=== PATIENT | male | born 1945 | race Caucasian/White ===

== ENCOUNTER 2017-08-21 15:00 | Outpatient (RCR) | payer MEDICARE, SELFPAY ==
--- NOTE | 2017-02-21 13:04 | HP.PTEVAL_ITS ---
Patient's Visit Information JENNIFER CORONA is a 72 year old M referred to Physical Therapy by José Funez with a diagnosis of Gait difficulty. Date of Evaluation: 02/21/17 Physical Therapist: Jaylon Hurtado DPT, OC - Visit Plan Frequency: 2-3x /Week Duration: 2 Months Plan: 2-3x/week for 8 weeks for. 1. HS and gastroc stretches. 2. Bed mobility supine to sit. 3. seated trunk strength. 4. Sit to stand and standing at walker with activity emphasizing position. - Subjective Subjective: 2015 fell off ladder and had craniotomy for SDH. [facility] then May 28 to [facility] through November 16. Having home therapy since October. Lost all muscle movement from the injury, couldn't move arms or legs, Improving. Now weaker on the left side. Prior to injury was getting around well but had a recent parkinson's diagnosis. Had December 13 suregery to repair a whole in his head. Also hisptry of brain cancer in 1991 with radiation. Currently using WC and comfortable chair at home. Has walked with therapy with a walker with wh 15 feet. Can stand and do leg exercises with counter or deck. Has cane but cannot use it. Transfers into chair with wifes help through standing. Always needs assist to stand and transfer. Given a bed bath by . Spends day on keyana or TV. Sleep is good , uses [facility] to call for urinal. Was retired prior. - Objective Sits in WC I, scoots to edge I, Sit to stand Min-Mod A and VC for hand placement. tends to only stand half way and he is a pusher. Once standing at walker he needs VC to get hips under shoulders, once in an upright position, he can stand with SBA. March with Min A at walker. Not standing without walker today. Hunches over immediately upon attempting to step and goes only 3 short steps with wh walker today. When asked to turn 90 degrees he immediately shifts weight BW and needs chair pulled behind him. Stand to sit with VC Min A. Sit to supine SBA, roll with Min A , supine to sit through L sidelie after failing to sit straight up is Mod A and VC. LE AROM WFL, very tight gastroc and HS(-50 90/90 test and -5 active DF B.). Sensation WNL to gross ligth touch. Strength in LE 3+/5 in available ROM, inv and ev challenging. UE aROM R WFL and L is weak and only to about 80 degrees flexion and poor coordination. LE coordination is poor but able to reciprocally toe tap and slowly heel to abdul. - Goals Goal 1:: Turn in bed and sit up without rail or triangle I. Goal Time Frame: 6-8 Weeks Goal 2:: Sit to stand at walker straight up tall I Goal Time Frame: 6-8 Weeks Goal 3:: Stand at walker and march without losing posture for 3x10 Goal Time Frame: 6-8 Weeks Goal 4:: Stand for 10 seconds unsupported. Goal Time Frame: 6-8 Weeks - Rehabilitation Potential Physical Therapy Diagnosis: Gait difficulty due to brain injury Rehabilitation Potential: Fair - Anticipated Interventions Patient/Client Instruction: Educate patient on: Condition, Plan of Care For the Purpose of:: To increase ROM, To improve muscle performance and motor function, To improve ability of physical actions for home/community/work/leisure , To improve gait and locomotor functions Therapeutic Exercise to Include: Flexibilty training, Gait and locomotor training Comment: mobility and pregait. For the Purpose of:: To increase ROM, To improve performance and independence with ADL's, To improve ability of physical actions for home/community/work/ leisure Functional Training to Include: ADL Training Comments: transfer training. For the Purpose of:: To improve ability of physical actions for home/community/ work/leisure Manual Therapy Techniques to Include: Passive ROM For the Purpose of:: To increase ROM Thank you for the opportunity to evaluate your patient. For Medicare and Medicare HMO plans, please review the plan of care and approve it. It will need to be FAXED BACK to us at [phone] for Medicare purposes. Please let me know if there are questions or concerns regarding this plan of care. Physician Signature: Date:
--- NOTE | 2017-03-01 13:06 | HP.OTEVAL ---
Patient's Visit Information JENNIFER CORONA is a 72 year old M, referred to Occupational Therapy by José Funez,, with a diagnosis of weakness. Date of Evaluation: 03/01/17 Occupational Therapist: Merry Torrez, ADELINA/Mario, CHT - Subjective Subjective: Pt arrives with for OT evaluation. PT was refered with dx of weakness. Pts reports 2015 he fell off of a ladder and had a craniotomy for SDH. He was in rehab at hospital for 2 weeks and then at [facility] May.28 - November 16. pt did have home health services since October. He now attends OT eval to continue to improve his strength. Pt PMH includes PD- per pt's right UE is stronger then his left and he is having tremors- tremors are worse when he is tired. pts goals are to get out of the WC to walk again - Objective Objective/Observation: pt demo with weak oral control and drooling- difficult to undersand due to limited oral motor ability- is good at understanding him. - Strength Shoulder: Right WFL left limited to 80 Elbow: Right 4/5 left 4-/5 Forearm: Right WFL left unable Wrist: Right and left limited Grain Shoveler: Right 35# left trace Lateral Pinch: Right 8# left 2# Tripod Pinch: Right and Left UNABLE Strength Comments: Left UE weaker then right. noted tremors with both - DASH-Disabilities of Arm, Shoulder& Hand DASH Sum: 112 - Goals Goal:: PT will demo a increase in left UB strength by 1 muscle grade to increase his ind with functional mobility from sit to stand and performance of BADLS. pt will demo a increase in left hygiene coordinator to 25# to increase ind with BADLS Goal:: pt will demo increase in left UE rom to increase ind with BADLS and IADLS Goal:: pt will demo a increase in right hand coordination to increase pts writing sig. legibly. 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 Pt also dx with PD Rehabilitation Potential: Good - Anticipated Interventions Anticipated Interventions: Strengthening, Fine Motor Coord/Andrey - Visit Plan Frequency: 2-3x /Week Duration: 4 Weeks TEXT: Thank you for the opportunity to evaluate your patient. For Medicare and Medicare HMO plans, please review the plan of care and approve it. It will need to be FAXED BACK to us at [phone] for Medicare purposes. Please let me know if there are questions or concerns regarding this plan of care. Physician Signature: Date:
--- NOTE | 2017-04-03 08:00 | HP.PTREVAL_ITS ---
José Funez, It has been my pleasure to treat JENNIFER CORONA over the last 11 visits for Gait difficulty. Please see the progress note below for an update on the physical therapy plan of care! Subjective: Doing well. Coming from OT. No c/o post last session (no significant fatigue). Objective/Function: See above in TherEx Details. Plan Plan: Continue through 16 visit plan of care and then re-evaluate progress. continue transfers and stance at walker. Goals Goal 1:: Turn in bed and sit up without rail or triangle I. Goal Time Frame: 6-8 Weeks Goal Progress: Progressing Goal 2:: Sit to stand at walker straight up tall I Goal Time Frame: 6-8 Weeks Goal 3:: Stand at walker and march without losing posture for 3x10 Goal Time Frame: 6-8 Weeks Goal 4:: Stand for 10 seconds unsupported. Goal Time Frame: 6-8 Weeks Anticipated Interventions Patient/Client Instruction: Educate patient on: Condition, Plan of Care For the Purpose of:: To increase ROM, To improve muscle performance and motor function, To improve ability of physical actions for home/community/work/leisure , To improve gait and locomotor functions Therapeutic Exercise to Include: Flexibilty training, Gait and locomotor training Comment: mobility and pregait. For the Purpose of:: To increase ROM, To improve performance and independence with ADL's, To improve ability of physical actions for home/community/work/ leisure Functional Training to Include: ADL Training Comments: transfer training. For the Purpose of:: To improve ability of physical actions for home/community/ work/leisure Manual Therapy Techniques to Include: Passive ROM For the Purpose of:: To increase ROM Please do not hesitate to contact me at [phone] by phone or Fax: if you have questions or concerns regarding this new plan of care! Sincerely, Jaylon Hurtado, DPT, OC
--- NOTE | 2017-04-18 16:48 | HP.PTREVAL_ITS ---
José Funez, It has been my pleasure to treat JENNIFER CORONA over the last 15 visits for Gait difficulty. Please see the progress note below for an update on the physical therapy plan of care! Subjective: Missed. saturday due to dehydration and wasn't feeling good. Overall getting better. Getting in and out of bed on own. Got into WC a couple times on own. Needss guide but not physical assist when he is doing well. Not walking at home yet but standing at porch rail and walking with WC follow about 10 feet.Wants more PT. Doing ankle weight ex sitting at home and in bed as well as stretching in bed and walking with railing. Objective/Function: Pt easier to understand today. Sit to supine I, rolls B sides I, Supine to sit with VC today from R edwar. Sit to stand is tough today, pt pushing to L ysfuinctionally 90% of time. Did get to stand at walker one time with Min A. Stood no longer than 10 seconds before needed to sit today. Overall pushing to R and posterior today needing many VC to not move feet and not push but does not correct even with cues. OVERALL MUCH IMPROVED WITH BED TRANSFERS AND ROLLING,, SIT TO STAND AND STANDING MINIMALLY IMPROVED INCONSISTENTLY. Plan Plan: 2x/week for 4 weeks. Please focus on bed trasnfers for core strength and mobility. Focus on transfer to stand and standing as patient conditiion allows. Consider platform for walker once standing as L UE hard to control on walker. Goals Goal 1:: Turn in bed and sit up without rail or triangle I. Goal Time Frame: 6-8 Weeks Goal Progress: Goal Met Goal 2:: Sit to stand at walker straight up tall I Goal Time Frame: 6-8 Weeks Goal Progress: inconsistently Goal 3:: Stand at walker and march without losing posture for 3x10 Goal Time Frame: 6-8 Weeks Goal Progress: Slowly Goal 4:: Stand for 10 seconds unsupported. Goal Time Frame: 6-8 Weeks Goal Progress: Progressing Anticipated Interventions Patient/Client Instruction: Educate patient on: Condition, Plan of Care For the Purpose of:: To increase ROM, To improve muscle performance and motor function, To improve ability of physical actions for home/community/work/leisure , To improve gait and locomotor functions Therapeutic Exercise to Include: Flexibilty training, Gait and locomotor training Comment: mobility and pregait. For the Purpose of:: To increase ROM, To improve performance and independence with ADL's, To improve ability of physical actions for home/community/work/ leisure Functional Training to Include: ADL Training Comments: transfer training. For the Purpose of:: To improve ability of physical actions for home/community/ work/leisure Manual Therapy Techniques to Include: Passive ROM For the Purpose of:: To increase ROM Please do not hesitate to contact me at [phone] by phone or Fax: if you have questions or concerns regarding this new plan of care! Sincerely, Jaylon Hurtado, DPT, OC
--- NOTE | 2017-05-15 16:05 | HP.PTREVAL_ITS ---
José Funez, It has been my pleasure to treat JENNIFER CORONA over the last 23 visits for Gait difficulty. Please see the progress note below for an update on the physical therapy plan of care! Subjective: Has some back pain at times. says it is easier to transfer him and she has to use her body less. Wants to continue with PT. HE: marching in chair and other seated exercises. Rolling in bed as an exercises. Transfer from WC to couch and he stands and she pivots butt to the couch. last two days have been worse, maybe dehydrating himself. Objective/Function: Siting posture is significantly improved with symmetrical pelvis and slightly hunched over but knees and feet symmetrical also. No VC needed today. Sit to stand transfer is inconsistent form Max A to Min A today and much better after mat work. Stands 10 seconds at times today at walker without hands on but still tends posterior. Sit to supine with just slight help at bottom foot. Transfer supine to sit with Min A for elbow placement and initial trunk rise off of table from sidelie. Rolling mod I with VC today. OVERALL SLOWLY IMPROVING BED MOBILITY AND INCONSISTENTLY WITH TRANSFER TO STAND. uNABLE TO STAND FUNCTIONALLY ENOUGH TO WALK YET. Plan Plan: Continue 2x/week for 4 weeks...work on. Transfer supine to sit with decreasing assist via sidelie, work on sit to stand at walker and standing with better posture, use mirror as it worked well with sitting Goals Goal 1:: Turn in bed and sit up without rail or triangle I. Goal Time Frame: 6-8 Weeks Goal Progress: Goal Met Goal 2:: Sit to stand at walker straight up tall I Goal Time Frame: 6-8 Weeks Goal Progress: Progressing Goal 3:: Stand at walker and march without losing posture for 3x10 Goal Time Frame: 6-8 Weeks Goal Progress: Slow inconsistent progres Goal 4:: Stand for 10 seconds unsupported. Goal Time Frame: 6-8 Weeks Goal Progress: inconsistently met Goal 5:: Transfer supine to sit I via sidelying. Goal Time Frame: 6-8 Weeks Goal Progress: NEW GOAL Anticipated Interventions Patient/Client Instruction: Educate patient on: Condition, Plan of Care For the Purpose of:: To increase ROM, To improve muscle performance and motor function, To improve ability of physical actions for home/community/work/leisure , To improve gait and locomotor functions Therapeutic Exercise to Include: Flexibilty training, Gait and locomotor training Comment: mobility and pregait. For the Purpose of:: To increase ROM, To improve performance and independence with ADL's, To improve ability of physical actions for home/community/work/ leisure Functional Training to Include: ADL Training Comments: transfer training. For the Purpose of:: To improve ability of physical actions for home/community/ work/leisure Manual Therapy Techniques to Include: Passive ROM For the Purpose of:: To increase ROM Please do not hesitate to contact me at [phone] by phone or Fax: if you have questions or concerns regarding this new plan of care! Sincerely, Jaylon Hurtado, ASHANTIT, OC
--- NOTE | 2017-06-13 15:59 | HP.PTREVAL_ITS ---
José Funez, It has been my pleasure to treat JENNIFER CORONA over the last 30 visits for Gait difficulty. Please see the progress note below for an update on the physical therapy plan of care! Subjective: A lot of progress int he last 3 weeks...medication changes? Much better than 30 days ago. walking a whole bunch. Rolling at home is I, Needs supervision to get into bed but does movement himself. No pain. No dizzyness. dresses him without having to lie him down. May 24 medication changed switched seizure meds and improved greatly since. Sees Dr. Arroyo July 04. HEP: LE movements while sitting and rolling and lying flat on back to stretch. Objective/Function: Posture and ability to find neutral position in sitting much better, still forward head and flat spine. Able to release foot hholds on walker I and brake I. stood unsupported 20 sec today. Stood at walker 2-3 minutes without support. Sit to stand CGA. Stand to sit: CGA. Sit to supine , roll both directions and sit back up from each side slow but I without hands on assist, stilld emonstrates weak core. Ambulate with wh walker and VC 30 feet with much weigth through UE. Ambulate 30 feet with wh walker CGA again. Loses focus easy. always slightly hunched with slight B knwe flexion and looking at ground until given VC. OVERALL, MUCH IMPROVED MOBILITY, DRAMAMTIC LIKELY DUE TO MEDS CHANGE EARLY IN MONTH. Plan Plan: 2X/WEEK X 4 WEEKS continue to focus on vertical ambulation, vertical standing balance with decreased necessity of walker. Progress HEP in vertical position as safety allows. Goals Goal 1:: Turn in bed and sit up without rail or triangle I. Goal Time Frame: 6-8 Weeks Goal Progress: Goal Met Goal 2:: Sit to stand at walker straight up tall I Goal Time Frame: 4-6 Weeks Goal Progress: mod I. supervision. Goal 3:: Stand at walker and august without losing posture for 3x10 Goal Time Frame: 4-6 Weeks Goal Progress: 1x10 Goal 4:: Stand for 10 seconds unsupported. Goal Time Frame: 6-8 Weeks Goal Progress: Goal Met Goal 5:: Transfer supine to sit I via sidelying. Goal Time Frame: 6-8 Weeks Goal Progress: Goal Met Goal 6:: Walk with wh walker 50 feet mod I Goal Time Frame: 4-6 Weeks Goal Progress: NEW GOAL Anticipated Interventions Patient/Client Instruction: Educate patient on: Condition, Plan of Care For the Purpose of:: To increase ROM, To improve muscle performance and motor function, To improve ability of physical actions for home/community/work/leisure , To improve gait and locomotor functions Therapeutic Exercise to Include: Flexibilty training, Gait and locomotor training Comment: mobility and pregait. For the Purpose of:: To increase ROM, To improve performance and independence with ADL's, To improve ability of physical actions for home/community/work/ leisure Functional Training to Include: ADL Training Comments: transfer training. For the Purpose of:: To improve ability of physical actions for home/community/ work/leisure Manual Therapy Techniques to Include: Passive ROM For the Purpose of:: To increase ROM Please do not hesitate to contact me at [phone] by phone or Fax: if you have questions or concerns regarding this new plan of care! Sincerely, Jaylon Hurtado DPT, OC
--- NOTE | 2017-07-24 14:55 | HP.PTREVAL_ITS ---
José Funez, It has been my pleasure to treat JENNIFER CORONA over the last 39 visits for Gait difficulty. Please see the progress note below for an update on the physical therapy plan of care! Subjective: Had seizure yesterday morning which takes some out of him. Sees Cruz next week. Not walking at home. Standing at home 5-6 minutes at a time at walker. with him but not needing hands on assist. Transfer into bed much easier, has hands on but doesn't need to. Uses walker and grab bar to toilet. Sleeping ok on back a\\sides and getting there himself. Has ramp at home. Doing sink marches, OTB hip abd, arm pulls on band, LE rot NWB, bridges. Objective/Function: sit to stand wihtout assist except initially kept upright adn VC to stand up tall. standing at walker can march 8 x with VC before needs to sit due to LE fatigue. (weigth starts to shift backwards. Stood 6-8 seconds with VC and CGA without walker today. cues needed to shift weight and look straight ahead. 26 feet ambulation with wh walker with min A to CGA, L step length is half of foot length adn R is one foot length. Scissors sometimes. Weight shifts posterior when tired. Then ambulated 35 feet in similar fashion making some improvements on R step length. at about 30 feet, pt started to shift BW and steps got shorter, L knee flexed and needed to sit. Still has tendency to keep knees bent when standing and narrow KUSH despite VC which make him less stable in standing. Weight shifts posterior when fatigued and loses balance backwards. OVERALL MUCH IMPORVEMENT IN MOBILITY. HARD WORKER AND GAINING I WITH STANCE AND TRASNFERS. Plan Plan: 2x/week for 4-8 weeks. Continue work on gait with decreasing assistance, focus on short 10 foot chair to chair movements to help gain ability to walk him at home. Focus on stance withot walker for balance per goals. Goals Goal 1:: Walk 10 feet consistently with wh walker without need for WC follow( chair to chair) ot faciltiate ADLS and safe ex at home. Goal Time Frame: 6-8 Weeks Goal Progress: NEW GOAL Goal 2:: Stand without walker 20 seconds no hands on assist to faciltiate safety with HEP Goal Time Frame: 6-8 Weeks Goal Progress: NEW GOAL Goal 3:: Stand at walker and march without losing posture for 3x10 Goal Time Frame: 4-6 Weeks Goal Progress: Progressing Goal 4:: Stand for 10 seconds unsupported. Goal Time Frame: 6-8 Weeks Goal Progress: Goal Met Goal 5:: Transfer supine to sit I via sidelying. Goal Time Frame: 6-8 Weeks Goal Progress: Goal Met Goal 6:: Walk with wh walker 50 feet mod I Goal Time Frame: 4-6 Weeks Goal Progress: Progressing Anticipated Interventions Patient/Client Instruction: Educate patient on: Condition, Plan of Care For the Purpose of:: To increase ROM, To improve muscle performance and motor function, To improve ability of physical actions for home/community/work/leisure , To improve gait and locomotor functions Therapeutic Exercise to Include: Flexibilty training, Gait and locomotor training Comment: mobility and pregait. For the Purpose of:: To increase ROM, To improve performance and independence with ADL's, To improve ability of physical actions for home/community/work/ leisure Functional Training to Include: ADL Training Comments: transfer training. For the Purpose of:: To improve ability of physical actions for home/community/ work/leisure Manual Therapy Techniques to Include: Passive ROM For the Purpose of:: To increase ROM Please do not hesitate to contact me at [phone] by phone or Fax: if you have questions or concerns regarding this new plan of care! Sincerely, ASHANTI MullinsT, OC
--- NOTE | 2017-07-25 15:56 | OTREVAL_ITS ---
José Funez, It has been my pleasure to treat JENNIFER CORONA over the last 38 visits for weakness. Please see the progress note below for an update on the occupational therapy plan of care! Subjective: pt arrives with Objective/Function: Pt demo increase FM control and increase in his functional strength- pt continues to have difficulty with medications and has good days and days where he is weaker. Pts is helpful in his care and pt is peforming his HEP. Pt would continue to benefit from skilled OT services to gain better control of strength for BADLS Plan Frequency: 2-3x /Week Duration: 4 Weeks Plan: pt to cont with PRE- would like to see increase wt and decrease reps Goals - Goals Goal:: PT will demo a increase in left UB strength by 1 muscle grade to increase his ind with functional mobility from sit to stand and performance of BADLS. pt will demo a increase in left helper coordinator to 25# to increase ind with BADLS Goal:: pt will demo increase in left UE rom to increase ind with BADLS and IADLS Goal:: pt will demo a increase in right hand coordination to increase pts writing sig. legibly. Goal:: Pts will report ind.with self feeding and cutting food by d/c Anticipated Interventions Anticipated Interventions: Strengthening, Fine Motor Coord/Andrey Please do not hesitate to contact me at [phone] by phone or Fax: if you have questions or concerns regarding this new plan of care! Sincerely, Merry Torrez, OTR/L, CHT
--- NOTE | 2017-07-31 15:02 | OTREVAL_ITS ---
José Funez, It has been my pleasure to treat JENNIFER CORONA over the last 40 visits for weakness. Please see the progress note below for an update on the occupational therapy plan of care! Subjective: Pt arrived to session with . Stated he is doing well. Objective/Function: pt continues to have good days with better energy and days where he struggles more with his abilities. He has gained strength and demo increase functional mobility- will cont with therapy 4 more weeks Plan Frequency: 2-3x /Week Duration: 4 Weeks Plan: cont with PRE Goals - Goals Goal:: PT will demo a increase in left UB strength by 1 muscle grade to increase his ind with functional mobility from sit to stand and performance of BADLS. pt will demo a increase in left sql data architect to 25# to increase ind with BADLS Goal:: pt will demo increase in left UE rom to increase ind with BADLS and IADLS Goal:: pt will demo a increase in right hand coordination to increase pts writing sig. legibly. Goal:: Pts will report ind.with self feeding and cutting food by d/c Anticipated Interventions Anticipated Interventions: Strengthening, Fine Motor Coord/Andrey Please do not hesitate to contact me at [phone] by phone or Fax: if you have questions or concerns regarding this new plan of care! Sincerely, Merry Torrez OTR/L, CHT
--- NOTE | 2017-08-21 16:31 | HP.PTREVAL_ITS ---
José Funez, It has been my pleasure to treat JENNIFER CORONA over the last 47 visits for Gait difficulty. Please see the progress note below for an update on the physical therapy plan of care! Subjective: Had a seizure today, a quick one. Mental attitude much better over the oast month. Getting up at walker at home now and moving down the adair way with WC follow. Taking a few steps with walker. Standing without walker a alina 5-6 minutes according to . Both are seeing improvements. Pivoting to new chair at home has become much easier although not I yet.. Objective/Function: Stood 2 minutes without UE today with only 1 LOB. Marching even holding walker was tough today as weight kept shifting backwards. Walked 20 feet today with wh walker SBA, one 90 degree turn. Pt a little weak today and tending posterior with weight shift. OVERALL PROGRESSSING SLOWLY TOWARD GOALS AND GAINING FUNCTION AT HOME. APPROPRIATE TO CONTINUE Plan Plan: 2X/WEEK FOR 4 WEEKS TO WORK ON DISTANCE WITH GAIT WITH WH WALKER, 90 DEGREE TURNS, AND STAND UNSUPPORTED WITH PERTURBATIONS. Goals Goal 1:: Walk 10 feet consistently with wh walker without need for WC follow( chair to chair) ot faciltiate ADLS and safe ex at home. Goal Time Frame: 6-8 Weeks Goal Progress: Progressing Goal 2:: Stand without walker 20 seconds no hands on assist to faciltiate safety with HEP Goal Time Frame: 6-8 Weeks Goal Progress: Goal Met Goal 3:: Stand at walker and march without losing posture for 3x10 Goal Time Frame: 4-6 Weeks Goal Progress: Not Progressing Goal 4:: Stand for 10 seconds unsupported. Goal Time Frame: 6-8 Weeks Goal Progress: Goal Met Goal 5:: Transfer supine to sit I via sidelying. Goal Time Frame: 6-8 Weeks Goal Progress: Goal Met Goal 6:: Walk with wh walker 50 feet mod I Goal Time Frame: 4-6 Weeks Goal Progress: Progressing Anticipated Interventions Patient/Client Instruction: Educate patient on: Condition, Plan of Care For the Purpose of:: To increase ROM, To improve muscle performance and motor function, To improve ability of physical actions for home/community/work/leisure , To improve gait and locomotor functions Therapeutic Exercise to Include: Flexibilty training, Gait and locomotor training Comment: mobility and pregait. For the Purpose of:: To increase ROM, To improve performance and independence with ADL's, To improve ability of physical actions for home/community/work/ leisure Functional Training to Include: ADL Training Comments: transfer training. For the Purpose of:: To improve ability of physical actions for home/community/ work/leisure Manual Therapy Techniques to Include: Passive ROM For the Purpose of:: To increase ROM Please do not hesitate to contact me at [phone] by phone or Fax: if you have questions or concerns regarding this new plan of care! Sincerely, Jaylon Hurtado, DPT, OC
== END 2017-08-21 19:00 | disposition home or self-care (01) ==
LOC: PT 15:00
PROVIDERS: Family Provider Family Medicine Geriatric Medicine; PCP Family Medicine Geriatric Medicine; Visit Provider Family Medicine Geriatric Medicine
DX: R53.1 Weakness (principal); R26.9 Unspecified abnormalities of gait and mobility
CPT/HCPCS: 97110; 97116; 97140; 97163; 97166; 97530; 97532; G8978; G8979; G8987; G8988; G8989

== ENCOUNTER → 2017-09-03 13:18 | Outpatient (CLI) | payer MEDICARE, SELFPAY ==
[2017-09-03 13:39] LABS: Absolute Lymphocyte Count 1.65 X10^3/ul (0.83-4.51); Absolute Neutrophil Count 3.2 X10^3/uL (2.0-7.7); Basophil# 0.04 X10^3/uL; Basophil% 0.7 % (0-1); Eosinophil# 0.24 X10^3/uL; Hematocrit 39.4 % (40-54); Lymphocyte # 1.65 X10^3/ul (4.0); Lymphocyte % 27.5 % (19-41); Mean Corpuscular Hgb 28.8 pg (27.0-32.0); Mean Corpuscular Volume 87.2 fL (80-94); Mean Platelet Vol. 10.6 fl (6.2-12.0); Neutrophil # 3.16 X10^3/uL (2.7-7.7); Neutrophil % 52.8 % (47-70); Platelet Count 282 K/mm3 (150-450); RBC Distribution Width CV 14.1 % (11.6-14.6); RBC Distribution Width SD 44.3 fl (35.1-43.9); Red Blood Count 4.52 M/mm3 (4.6-6.2)
[2017-09-03 13:41] LABS: POSITIVE COUNT NO; POSITIVE DIFFERENTIAL NO; POSITIVE MORPHOLOGY NO
[2017-09-03 14:20] LABS: AST(SGOT) 11 U/L (15-37); Alanine Aminotransfer ALT/SGPT 7 U/L (16-61); Albumin, Serum 3.9 g/dL (3.2-5.0); Alkaline Phosphatase 90 U/L (45-117); Anion Gap 5 (5-15); BUN 19 mg/dL (7-18); BUN/Creat Ratio 22.1 RATIO (10-20); Chloride 104 mmol/L (98-107); Creatinine, Serum 0.86 mg/dL (0.70-1.30); EST Glomerular Filtration Rate 92 mL/min (>60); Est Glom Filt Rate - Afr Amer 112 mL/min (>60); Globulin 3.8 g/dL (2.2-4.2); Glucose 77 mg/dL (74-106); Potassium 4.1 mmol/L (3.5-5.1); Protein, Total 7.7 g/dL (6.4-8.2); Sodium Level 138 mmol/L (136-145); Thyroid Stim Hormone (TSH) 1.55 uIU/mL (0.358-3.74)
== END ==
PROVIDERS: Family Provider Family Medicine Geriatric Medicine; PCP Family Medicine Geriatric Medicine; Visit Provider Family Medicine Geriatric Medicine
DX: I10 Essential (primary) hypertension (principal)
CPT/HCPCS: 36415; 80053; 84443; 85025

== ENCOUNTER → 2017-09-10 14:34 | Outpatient (CLI) | payer MEDICARE, SELFPAY ==
--- NOTE | 2017-09-10 11:23 | TISS_PTH ---
PATIENT: JENNIFER CORONA LOC: [facility] U#:[id number] AGE/SX: 80/M ROOM: RE09/10/[address]: Dr. 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 Actinic keratosis and moderate to severe atypia. See comment. Solar elastosis. SJ:warner 09/12/17 COMMENT Focal severe atypia is noted at one peripheral and deep resection margin. Case has been reviewed in consultation with Dr. Loco who concurs with the above diagnosis. IDC:AM MICROSCOPIC DESCRIPTION Slides are reviewed. GROSS DESCRIPTION Received is one container labeled with the patient's name and not further designated. The specimen consists of a light august fragment of shaved skin measuring 1.5 x 1.2 x 0.1 cm. The specimen is inked, sectioned and totally submitted in one cassette. / DALILA:warner 09/11/17 TC:0 CPT: 55296
== END ==
PROVIDERS: Family Provider Family Medicine Geriatric Medicine; PCP Family Medicine Geriatric Medicine; Visit Provider Family Medicine Geriatric Medicine
DX: L81.9 Disorder of pigmentation, unspecified (principal)
CPT/HCPCS: 88305

== ENCOUNTER 2017-09-22 13:16 | Emergency (ER) | payer MEDICARE, SELFPAY ==
[2017-09-22 13:18] VITALS: BP 135/85; PULSE 82; RESP 11; TEMP 36.3; O2SAT 95; BMI 20.7
--- NOTE | 2017-09-22 13:26 | CT_ITS ---
STUDY: CT BRAIN WITHOUT CONTRAST REASON FOR EXAM: Male, 72 years old. History of tumor removal RADIATION DOSAGE (If Supplied By Facility): CTDIvol = ( 44.99 ) mGy, DLP = ( 1344.76 ) mGycm TECHNIQUE: Transaxial CT imaging of the brain was performed without administration of intravenous contrast material. Individualized dose optimization techniques were used for this CT. COMPARISON: May 14, 2016 and May 02, 2016 and August 28, 2015. FINDINGS: There is a right craniectomy with reconstructive hardware of the skull Normal calvarium. There is mild cerebral atrophy with widening of the extra-axial spaces and ventricular dilatation. There are areas of decreased attenuation within the white matter tracts of the supratentorial brain, consistent with microvascular disease changes. There is volume loss with calcifications of the right frontal lobe. There are small punctate calcifications of the basal ganglia which are seen in the aging brain as a normal variant. Normal brainstem. There is mild cerebellar atrophy. There is no intracranial hemorrhage. There are no findings of an acute ischemic infarction. Normal visualized paranasal sinuses. CT/Brain/Head without Contrast IMPRESSION: Chronic involutional changes of the brain. Postoperative changes. Right frontal volume loss with calcifications. No acute hemorrhage. Electronically Signed: Leonides Hand MD at 14:32 EDT , Service support ,
--- NOTE | 2017-09-22 13:26 | EKG12_ITS ---
Test Reason : DYSRHYTHMIA Blood Pressure : / mmHG Vent. Rate : 077 BPM Atrial Rate : 077 BPM P-R Int : 166 ms QRS Dur : 098 ms QT Int : 384 ms P-R-T Axes : 057 075 050 degrees QTc Int : 434 ms Normal sinus rhythm Normal ECG Confirmed by GHADA AGUILAR, KAYLAH ([id number]), script editor NINA FALCON ([id number]) on 09/24/2017 1:24:41 PM Referred By: José Funez Confirmed By:KAYLAH URRUTIA MD
--- NOTE | 2017-09-22 13:30 | ED.RN ---
STATES THAT HE WAS MORE SLEEPY TODAY THAN NORMAL.
[2017-09-22] MEDS: 0.9% Normal Saline 1,000 ML 150 ML IV (13:45)
[2017-09-22 13:48] LABS: Absolute Lymphocyte Count 1.49 X10^3/ul (0.83-4.51); Absolute Neutrophil Count 4.9 X10^3/uL (2.0-7.7); Basophil# 0.03 X10^3/uL; Basophil% 0.4 % (0-1); Eosinophil# 0.16 X10^3/uL; Eosinophils% 2.2 % (0-5); Hematocrit 38.3 % (40-54); Hemoglobin 12.6 g/dl (13.0-16.5); Lymphocyte # 1.49 X10^3/ul (4.0); Lymphocyte % 20.2 % (19-41); Mean Corp Hgb Conc 32.9 g/gl (32-36); Mean Corpuscular Hgb 28.8 pg (27.0-32.0); Mean Corpuscular Volume 87.4 fL (80-94); Mean Platelet Vol. 10.3 fl (6.2-12.0); Monocyte# 0.73 X10^3/uL; Monocyte% 9.9 % (0-10); Neutrophil # 4.94 X10^3/uL (2.7-7.7); Neutrophil % 67.2 % (47-70); POSITIVE COUNT NO; POSITIVE DIFFERENTIAL NO; POSITIVE MORPHOLOGY NO; Platelet Count 290 K/mm3 (150-450); RBC Distribution Width CV 14.6 % (11.6-14.6); Red Blood Count 4.38 M/mm3 (4.6-6.2); White Blood Count 7.4 K/mm3 (4.4-11.0)
[2017-09-22 13:59] LABS: Anion Gap 8 (5-15); BUN 20 mg/dL (7-18); BUN/Creat Ratio 16.9 RATIO (10-20); Calcium,Total 8.6 mg/dL (8.5-10.1); Chloride 103 mmol/L (98-107); Creatinine, Serum 1.18 mg/dL (0.70-1.30); EST Glomerular Filtration Rate 64 mL/min (>60); Est Glom Filt Rate - Afr Amer 78 mL/min (>60); Estimated Creatinine Clearance 49.33 ml/min; Glucose 136 mg/dL (74-106); Sodium Level 139 mmol/L (136-145)
[2017-09-22 14:37] VITALS: BP 118/82; PULSE 80; RESP 14; O2SAT 94
[2017-09-22 15:18] VITALS: BP 124/63; PULSE 87; RESP 20; O2SAT 98
[2017-09-22 15:22] LABS: Bacteria 0 SEEN /hpf (None Seen)
[2017-09-22 15:29] LABS: Carbamazepine (Tegretol) < 0.5 ug/mL (4.0-12.0)
[2017-09-22 15:31] LABS: Color, Urine Yellow (Yellow); Glucose, Dipstick Normal (Normal); Ketone-Dipstick 5 mg/dl (Negative); Leukocyte Esterase-Dipstick 25 /ul (Negative); Nitrite-Dipstick Negative (Negative); Occult Blood-Urine 10 /ul (Negative); Protein-Dipstick 30 mg/dl (Negative); Specific Gravity, Urine 1.015 (1.002-1.030); Urine Bilirubin Dipstick Negative (Negative); Urine Clarity Sl. Cloudy (Clear); Urine Urobilinogen Normal (Normal)
[2017-09-22 15:53] LABS: Hyaline Cast 10-25 SEEN /lpf (0-5); Mucous, Urine 1+ /hpf (<or=2+); Red Blood Cells-Urine 0-5 SEEN /hpf (0-5); White Blood Cells 10-25 SEEN /hpf (0-5)
[2017-09-22 15:54] LABS: Amorphous Sediment 1+; Squamous Epithelial Cells - UA 0-5 SEEN /hpf (0-5)
--- NOTE | 2017-09-22 16:09 | ED.VISSUMM ---
- ER Visit Summary Date of Service: 09/22/17 Chief Complaint: Weakness History of Present Illness: The patient is a 72 M with chronic left-sided weakness. He has had increasing weakness today and reports he was slumped over in a chair. Patient states it felt like his words were slurred more than normal and he was very sleepy. He did not feel like he was going to pass out. states that he feels tired like this after he takes his seizure medications but seem to be more pronounced today. He recently started taking Requip as well and takes that at the same time as his seizure medications. Patient has history of Parkinson's, subarachnoid hemorrhage, and seizure. He has chronic left-sided weakness, facial droop, and drooling. He has had 2 prior craniotomies. Physical Examination: Vital signs are unremarkable. Patient sitting upright in bed no acute distress. Head neck examination reveals postsurgical changes. He does have left facial droop. Heart is regular rate and rhythm. On lung sounds are grossly clear. Abdomen is soft nontender. Left upper extremity examination reveals contractures. He has chronic weakness. He is alert and answers questions appropriately. Test Results: Head CT reveals chronic involutional changes of the brain. There are postop changes noted. Right frontal volume loss is appreciated. There is no hemorrhage. EKG is sinus at 77 with no sign of ischemia. CBC was normal white count with hemoglobin 12.6. Chemistry studies are unremarkable. Urinalysis shows 25 leukocyte esterase, 10-25 white cells with 0 bacteria. Tegretol level was checked and is less than 0.5. Lamictal level was sent but is a send out. Emergency Department Course and Treatment: On repeat examination patient is resting comfortably. He seems back to his baseline. I do not feel that this represents an acute stroke or TIA, more likely to be secondary to his medications. will call patient's neurologist tomorrow with his current carbamazepine level to see if it needs to be an adjustment. I have recommended the seizure medications from the Requip by at least an hour to see if we can determine which medication may be making him more sleepy. They have follow-up scheduled with their neurologist in less than 2 weeks. Treatment Plan: [] Disposition: Discharge Impression: Generalized weakness, improved This note was generated with [employer] dictation software. It may contain incorrect words, spelling, and punctuation that were not noted in review of the chart prior to signing ED Disposition - Plan for ED Patient: Chief Complaint: Weakness Referrals: José Funez Chi, MD [Primary Care Provider] -
[2017-09-22 16:14] VITALS: BP 139/59; PULSE 89; RESP 14; O2SAT 93
--- NOTE | 2017-09-22 16:14 | ED.DEP ---
ED Disposition - Plan for ED Patient: Disposition: Home or Assisted Living Chief Complaint: Weakness Instructions: ED Weakness [facility] Referrals: José Funez Chi, MD [Primary Care Provider] - Additional Instructions: Carbamazepine (Tegretol) level < 0.5 Lamictal level is a send out test and result is not yet available. Call Dr Arroyo tomorrow to determine if any adjustments need to be made.
[2017-09-22 16:34] VITALS: BP 119/67; PULSE 88; RESP 16; O2SAT 96
--- NOTE | 2017-09-22 16:35 | ED.RN ---
PT GIVEN WRITTEN AND VERBAL DISCHARGE INSTRUCTIONS. PT AND PT VERBALIZE UNDERSTANDING. PT IV D/C AND COVERED WITH 2X2 GAUZE DRESSING. THIS RN ASSISTED PTY IN DRESSING AND PLACED IN WHEELCHAIR. PT WHEELS PT OUT OF DEPT.
== END 2017-09-22 16:36 | disposition home or self-care (01) ==
PROVIDERS: Emergency Provider Emergency Medicine; Family Provider Family Medicine Geriatric Medicine; PCP Family Medicine Geriatric Medicine
DX: R53.1 Weakness (principal); G40.909 Epilepsy, unspecified, not intractable, without status epilepticus; G20 Parkinson's disease; Z86.79 Personal history of other diseases of the circulatory system; Z87.891 Personal history of nicotine dependence
CPT/HCPCS: 70450; 80048; 80156; 81001; 82542; 85025; 93005; 96360; 96361; 99285; J7030; A4216

== ENCOUNTER → 2017-10-19 15:15 | Outpatient (CLI) | payer MEDICARE, SELFPAY ==
[2017-10-19 16:11] LABS: Bacteria 0 SEEN /hpf (None Seen); Color, Urine Yellow (Yellow); Glucose, Dipstick Normal (Normal); Ketone-Dipstick Negative (Negative); Leukocyte Esterase-Dipstick Negative /ul (Negative); Mucous, Urine 0 SEEN /hpf (<or=2+); Nitrite-Dipstick Negative (Negative); Occult Blood-Urine Negative /ul (Negative); Protein-Dipstick Negative (Negative); Red Blood Cells-Urine 0 SEEN /hpf (0-5); Squamous Epithelial Cells - UA 0 SEEN /hpf (0-5); Urine Bilirubin Dipstick Negative (Negative); Urine Clarity Clear (Clear); Urine Urobilinogen Normal (Normal)
[2017-10-19 16:22] LABS: White Blood Cells 0-5 SEEN /hpf (0-5)
== END ==
PROVIDERS: Family Provider Family Medicine Geriatric Medicine; PCP Family Medicine Geriatric Medicine; Visit Provider Physician Assistant
DX: N39.0 Urinary tract infection, site not specified (principal)
CPT/HCPCS: 81001; 87077; 87086; 87088

== ENCOUNTER → 2017-11-04 10:27 | Outpatient (CLI) | payer MEDICARE, SELFPAY | PROVIDERS: Family Provider Family Medicine Geriatric Medicine; PCP Family Medicine Geriatric Medicine; Visit Provider Psychiatry & Neurology Neurology | DX: G40.019 Localization-related (focal) (partial) idiopathic epilepsy and epileptic syndromes with seizures of localized onset, intractable, without status epilepticus (principal) | CPT/HCPCS: 36415; 80177; 82542 ==

== ENCOUNTER → 2017-12-23 13:40 | Outpatient (CLI) | payer MEDICARE, SELFPAY ==
[2017-12-23 14:58] LABS: Absolute Lymphocyte Count 1.14 X10^3/ul (0.83-4.51); Absolute Neutrophil Count 3.5 X10^3/uL (2.0-7.7); Basophil# 0.03 X10^3/uL; Basophil% 0.5 % (0-1); Eosinophil# 0.18 X10^3/uL; Eosinophils% 3.1 % (0-5); Hematocrit 42.1 % (40-54); Lymphocyte # 1.14 X10^3/ul (4.0); Lymphocyte % 19.6 % (19-41); Mean Corp Hgb Conc 33.3 g/gl (32-36); Mean Corpuscular Hgb 29.4 pg (27.0-32.0); Mean Corpuscular Volume 88.3 fL (80-94); Mean Platelet Vol. 10.6 fl (6.2-12.0); Monocyte# 0.97 X10^3/uL; Monocyte% 16.7 % (0-10); Neutrophil # 3.49 X10^3/uL (2.7-7.7); Neutrophil % 59.9 % (47-70); Platelet Count 297 K/mm3 (150-450); RBC Distribution Width CV 14.9 % (11.6-14.6); RBC Distribution Width SD 48.8 fl (35.1-43.9); Red Blood Count 4.77 M/mm3 (4.6-6.2); White Blood Count 5.8 K/mm3 (4.4-11.0)
[2017-12-23 14:59] LABS: POSITIVE COUNT NO; POSITIVE DIFFERENTIAL NO; POSITIVE MORPHOLOGY NO
[2017-12-23 15:25] LABS: AST(SGOT) 16 U/L (15-37); Alanine Aminotransfer ALT/SGPT 18 U/L (16-61); Albumin, Serum 3.9 g/dL (3.2-5.0); Alkaline Phosphatase 91 U/L (45-117); Anion Gap 7 (5-15); BUN 18 mg/dL (7-18); BUN/Creat Ratio 16.8 RATIO (10-20); Calcium,Total 8.9 mg/dL (8.5-10.1); Chloride 100 mmol/L (98-107); Creatinine, Serum 1.07 mg/dL (0.70-1.30); EST Glomerular Filtration Rate 72 mL/min (>60); Est Glom Filt Rate - Afr Amer 87 mL/min (>60); Glucose 102 mg/dL (74-106); Potassium 4.3 mmol/L (3.5-5.1); Protein, Total 7.9 g/dL (6.4-8.2); Sodium Level 136 mmol/L (136-145); Thyroid Stim Hormone (TSH) 1.09 uIU/mL (0.358-3.74)
[2017-12-25 07:06] LABS: KEPPRA (LEVETIRACETAM) 40.6 ug/mL (10.0-40.0)
[2017-12-26 17:17] LABS: Lamotrigine (Lamictal) Level 9.7 ug/mL (2.0-20.0); Trileptal-Oxcarbazepine 31 ug/mL (10-35)
== END ==
PROVIDERS: Family Provider Family Medicine Geriatric Medicine; PCP Family Medicine Geriatric Medicine; Visit Provider Family Medicine Geriatric Medicine
DX: N39.0 Urinary tract infection, site not specified (principal); G40.909 Epilepsy, unspecified, not intractable, without status epilepticus; I10 Essential (primary) hypertension
CPT/HCPCS: 36415; 80053; 80177; 82542; 84443; 85025; 87086

== ENCOUNTER → 2018-01-30 15:36 | Outpatient (CLI) | payer MEDICARE, SELFPAY ==
--- NOTE | 2018-01-30 17:50 | RAD_ITS ---
STUDY: X-RAY - ABDOMEN/PELVIS REASON FOR EXAM: Male, 73 years old. Constipation TECHNIQUE: 4 views COMPARISON: None. FINDINGS: Normal visualized lung bases. Elevated right hemidiaphragm. There is an unremarkable bowel gas pattern. Fecal distended rectosigmoid colon. There is no demonstrated free abdominal air. The visualized liver, spleen and kidneys are grossly normal in size and morphology. Normal soft tissue structures. Normal visualized osseous structures. RAD/[employer]d [employer] Decub and/or Erect IMPRESSION: Slightly fecal distended rectosigmoid colon. Electronically Signed: Dave Johnson DO at 23:57 EDT Tel [phone], Service support ,
[2018-01-30 18:06] LABS: Anion Gap 13 (5-15); BUN 14 mg/dL (7-18); BUN/Creat Ratio 13.9 RATIO (10-20); Calcium,Total 9.4 mg/dL (8.5-10.1); Chloride 92 mmol/L (98-107); Creatinine, Serum 1.01 mg/dL (0.70-1.30); EST Glomerular Filtration Rate 77 mL/min (>60); Est Glom Filt Rate - Afr Amer 93 mL/min (>60); Glucose 105 mg/dL (74-106); Potassium 4.6 mmol/L (3.5-5.1); Sodium Level 130 mmol/L (136-145)
[2018-01-30 18:54] LABS: Basophil% 0.4 % (0-1); Eosinophils% 0.9 % (0-5); Hematocrit 43.6 % (40-54); Mean Corp Hgb Conc 34.4 g/gl (32-36); Mean Corpuscular Hgb 30.4 pg (27.0-32.0); Mean Corpuscular Volume 88.4 fL (80-94); Mean Platelet Vol. 10.7 fl (6.2-12.0); Monocyte% 9.8 % (0-10); Neutrophil % 75.5 % (47-70); POSITIVE COUNT NO; POSITIVE DIFFERENTIAL NO; POSITIVE MORPHOLOGY NO; Platelet Count 292 K/mm3 (150-450); RBC Distribution Width CV 14.3 % (11.6-14.6); Red Blood Count 4.93 M/mm3 (4.6-6.2)
[2018-01-30 18:55] LABS: Absolute Lymphocyte Count 1.04 X10^3/ul (0.83-4.51); Absolute Neutrophil Count 6.1 X10^3/uL (2.0-7.7); Basophil# 0.03 X10^3/uL; Eosinophil# 0.07 X10^3/uL; Lymphocyte # 1.04 X10^3/ul (4.0); Monocyte# 0.78 X10^3/uL; Neutrophil # 6.05 X10^3/uL (2.7-7.7)
== END ==
PROVIDERS: Family Provider Family Medicine Geriatric Medicine; PCP Family Medicine Geriatric Medicine; Visit Provider Family Medicine Geriatric Medicine
DX: E86.0 Dehydration (principal); K59.00 Constipation, unspecified
CPT/HCPCS: 36415; 74019; 80048; 85025

== ENCOUNTER 2018-02-10 13:47 | Emergency (ER) | payer MEDICARE, SELFPAY ==
[2018-02-10 13:48] VITALS: BP 126/74; PULSE 91; RESP 18; TEMP 36.7; O2SAT 94; BMI 24.3
[2018-02-10 14:19] LABS: Absolute Lymphocyte Count 1.24 X10^3/ul (0.83-4.51); Absolute Neutrophil Count 4.8 X10^3/uL (2.0-7.7); Basophil# 0.03 X10^3/uL; Basophil% 0.4 % (0-1); Eosinophil# 0.15 X10^3/uL; Eosinophils% 2.1 % (0-5); Hematocrit 43.2 % (40-54); Hemoglobin 14.6 g/dl (13.0-16.5); Lymphocyte # 1.24 X10^3/ul (4.0); Lymphocyte % 17.3 % (19-41); Mean Corp Hgb Conc 33.8 g/gl (32-36); Mean Corpuscular Hgb 29.9 pg (27.0-32.0); Mean Corpuscular Volume 88.5 fL (80-94); Mean Platelet Vol. 9.3 fl (6.2-12.0); Monocyte# 0.97 X10^3/uL; Monocyte% 13.5 % (0-10); Neutrophil # 4.76 X10^3/uL (2.7-7.7); Neutrophil % 66.6 % (47-70); Platelet Count 275 K/mm3 (150-450); RBC Distribution Width CV 13.8 % (11.6-14.6); Red Blood Count 4.88 M/mm3 (4.6-6.2); White Blood Count 7.2 K/mm3 (4.4-11.0)
[2018-02-10 14:21] LABS: POSITIVE COUNT NO; POSITIVE DIFFERENTIAL NO; POSITIVE MORPHOLOGY NO
--- NOTE | 2018-02-10 14:25 | ED.VISSUMM ---
- ER Visit Summary Date of Service: 02/10/18 Chief Complaint: Weakness History of Present Illness: The patient is a 73 M who presents with generalized weakness. Caregiver gives most of the history as the patient has a history of Parkinson's and is not very communicative. She states that he is more weak than usual. He has been having a hard time swallowing food recently. She is concerned about dehydration. He was in Dr. Funez's this last week and was told he was dehydrated and given IV fluids at that time. He is on MiraLAX for constipation and he had an x-ray which revealed constipation last week as well. No fevers. No other recent illnesses. Physical Examination: Vital signs reviewed. HEENT exam unremarkable. Heart is tachycardic and regular rhythm without murmurs. Lungs are clear. Abdomen soft and nontender. Extremity exam reveals no edema. He is alert and oriented times self. He has no changes in his neurologic exam according to his caregiver. No lethargy Test Results: EKG is sinus rhythm with a rate of 80. Nonspecific ST-T wave changes. Chest x-ray reveals atelectasis. Labs reveal sodium of 132, glucose 129, chloride 94. CBC normal. Urinalysis reveals trace leukocytes only. Lactate 2.0, troponin normal. Emergency Department Course and Treatment: Patient was hydrated with normal saline and feels much better. at bedside states he is more perky. I believe he may have a mild amount of dehydration. I encouraged trying to supplement at home with fluids. He may also need a Boost or Ensure to help with his diet. At this point I do not feel he needs to be admitted as his kidney function is normal. Patient will need to follow-up with his PCP Treatment Plan: [] Disposition: Discharge Impression: Dehydration This note was generated with [employer] dictation software. It may contain incorrect words, spelling, and punctuation that were not noted in review of the chart prior to signing ED Disposition - Plan for ED Patient: Chief Complaint: General Illness Referrals: José Funez Chi, MD [Primary Care Provider] -
[2018-02-10 14:44] LABS: BUN 13 mg/dL (7-18); Glucose 129 mg/dL (74-106)
[2018-02-10 14:45] LABS: ALB/GLOB Ratio 1.1 RATIO (0.9-2.4); AST(SGOT) 10 U/L (15-37); Alanine Aminotransfer ALT/SGPT 10 U/L (16-61); Alkaline Phosphatase 98 U/L (45-117); Anion Gap 11 (5-15); BUN/Creat Ratio 10.8 RATIO (10-20); Calcium,Total 9.1 mg/dL (8.5-10.1); Chloride 94 mmol/L (98-107); EST Glomerular Filtration Rate 63 mL/min (>60); Est Glom Filt Rate - Afr Amer 76 mL/min (>60); Estimated Creatinine Clearance 53.19 ml/min; Globulin 3.6 g/dL (2.2-4.2); Potassium 4.3 mmol/L (3.5-5.1); Protein, Total 7.6 g/dL (6.4-8.2); Sodium Level 132 mmol/L (136-145)
--- NOTE | 2018-02-10 14:58 | ED.RN ---
DR. GODOY NOTIFIED FACE TO FACE OF LACTIC OF 2.0, NO ORDERS GIVEN
[2018-02-10 15:28] LABS: Bacteria 0 SEEN /hpf (None Seen); Mucous, Urine 0 SEEN /hpf (<or=2+); Red Blood Cells-Urine 0 SEEN /hpf (0-5)
[2018-02-10 15:32] LABS: Color, Urine Yellow (Yellow); Glucose, Dipstick Normal (Normal); Ketone-Dipstick Negative (Negative); Leukocyte Esterase-Dipstick 25 /ul (Negative); Nitrite-Dipstick Negative (Negative); Occult Blood-Urine Negative /ul (Negative); Protein-Dipstick 30 mg/dl (Negative); Urine Bilirubin Dipstick Negative (Negative); Urine Clarity Clear (Clear); Urine Urobilinogen Normal (Normal)
--- NOTE | 2018-02-10 15:44 | ED.DEP ---
ED Disposition - Plan for ED Patient: Disposition: Home or Assisted Living Chief Complaint: General Illness Instructions: ED Dehydration Referrals: José Funez Chi, MD [Primary Care Provider] -
[2018-02-10 15:53] LABS: Squamous Epithelial Cells - UA 0-5 SEEN /hpf (0-5); White Blood Cells 0-5 SEEN /hpf (0-5)
[2018-02-10 15:56] VITALS: BP 143/82; PULSE 80; RESP 16; O2SAT 97
[2018-02-10 16:06] VITALS: BP 139/72; PULSE 80; RESP 18; O2SAT 97
[2018-02-10 18:15] LABS: Reflex Lactate? Y
== END 2018-02-10 16:07 | disposition home or self-care (01) ==
PROVIDERS: Emergency Provider Emergency Medicine; Family Provider Family Medicine Geriatric Medicine; PCP Family Medicine Geriatric Medicine
DX: E86.0 Dehydration (principal); G20 Parkinson's disease; K59.00 Constipation, unspecified; G40.909 Epilepsy, unspecified, not intractable, without status epilepticus; Z79.899 Other long term (current) drug therapy
CPT/HCPCS: 71045; 80053; 81001; 83605; 84484; 85025; 93005; 96360; 96361; 99283; J7040; A4216

== ENCOUNTER 2018-02-26 14:00 | Outpatient (RCR) | payer MEDICARE, SELFPAY ==
--- NOTE | 2017-09-25 14:38 | HP.PTREVAL ---
José Funez, It has been my pleasure to treat JENNIFER CORONA over the last 55 visits for Gait difficulty. Please see the progress note below for an update on the physical therapy plan of care! Subjective: Had ER incident possibly due to med last Saturday. Was very tired since that time. Knew something was going on when he could not stand last week. ER was visited due to near comatose sitting in chair and not coherent. Still not going quite as wella s prior to that incident. Was feeling like doing better prior to that incident. Stamina for standing was improving and trasnsfers were easier. HEP includes standing at walker and counter attempting without UE. No falls. Walki ng with wh walker 8-10 feet then can get scared. Using wh walker with wheelchair follow. Er doctor changed timing of meds. patient felt walks are limited by fear and legs getting tired more than anything today. Objective/Function: Overall looks to be improving. Still needs WC follow for safety but distance are farther. 90 degree turns is becoming more consistent. standing today without walker 2 minutes and reaching gently and turning head without LOB. Walked 45 feet with CGA and wh walker after a one hour PT session. ER visit for medication difficulties may have set him back a little last week. overall appropriate to continue as he continues toward goals slowly and needs more functional improvement of mobility for home. Plan Plan: 2x/week for 4 weeks. 1. gait distance 45-50 feet whenever possible. 2. Work toward Mod I with supervision with 90 degree turns to increase gait distance at home. Work on stance without support and patients confidence with this as he has a last pattern grader on walker despite being able to stand without it. Goals Goal 1:: Walk 10 feet consistently with wh walker without need for WC follow to facilitate ADLS and safe ex at home Goal Time Frame: 6-8 Weeks Goal Progress: still needs follow Goal 2:: Stand at walker and august without losing posture 3x10 Goal Time Frame: 6-8 Weeks Goal Progress: 1x7 today. Goal 3:: Walk with wh walker 50 feet mod I Goal Time Frame: 4-6 Weeks Goal Progress: Progressing Goal 4:: Stand without support and reach and turn head 5 minutes without LOB Goal Time Frame: 4-6 Weeks Goal Progress: NEW GOAL Goal 5:: 3 45 foot walks with wh walker with supervision without fatigue causing him to sit suddenly. Goal Time Frame: 4-6 Weeks Goal Progress: NEW GOAL Anticipated Interventions Functional Training to Include: Gait training For the Purpose of:: To improve gait and locomotor functions Please do not hesitate to contact me at [phone] by phone or if you have questions or concerns regarding this new plan of care! Sincerely, Jaylon Hurtado, DPT, OC
--- NOTE | 2017-10-21 16:18 | HP.PTREVAL_ITS ---
José Funez, It has been my pleasure to treat JENNIFER CORONA over the last 60 visits for Gait difficulty. Please see the progress note below for an update on the physical therapy plan of care! Subjective: Went to doctor due to fever last saturday and found a bacterial infection in blood that was probably causing weakness for the lastg month. Staerted antibiotic Saturday and is doing so much better.(been on it for two days). Movement adn feeling much better than anytime than in the last month. Sleeping well. Not sleepy anymore. Walked 20 feet today with WC behind him. Got on high bed yesterday and laid on belly to stretch and got off bed and stood up I. Objective/Function: All goals interrupted this last month with weakness likely due to infection and are still approp. Steps shorter and more labored on second walk. Pt knows that he is done after 30 feet and asks to sit properly. HS and gastroc max tight. Stands with knees bent to approx 25 degrees and hips flexed/hunched over to about 15 degrees and looks at ground until cued. Has AROM in ankles and knees and hips WFL, abduction of hips weak at 3+ and knee ext 3/5 and HS tightness makes end range ext in sitting challenging. Can get him to neutral position lying down with obvious tightness in hip flexors and HS. OVERALL, PT HAS BEEN WEAK OVER THE AST MONTH LIKLEY DUE TO INFECTION AND TOLERATED THERAPY POORLY. MUCH BETTER TODAY AFTER STARTING ANTIBIOTIC OVER THE WEEKEND. LOST ABOUT A MONTH OF THERAPY DUE TO WEKANESS. STILL APPROPRIATE TO CONTINUE HE IS PROGRESSING SLOWLY TOWARD GOALS DESPITE HIS WEAKNESS INT HE LAST MONTH. Plan Plan: 2X/WEEK FOR 4-5 WEEKS... PLEASE FOCUS ON ENSURING SAFETY WITH HIM KNOWING HIS WALKING LIMIT, WALKING DISTANCE WITH WH WALKER, STANDING WITH PERTURBATIONS UNSUPPORTED. EMPHASIZE HOME STRETCHING COMPLIANCE. Goals Goal 1:: Walk 10 feet consistently with wh walker without need for WC follow to facilitate ADLS and safe ex at home Goal Time Frame: 6-8 Weeks Goal Progress: Progressing Goal 2:: Stand at walker and march without losing posture 3x10 Goal Time Frame: 6-8 Weeks Goal Progress: Progressing Goal 3:: Walk with wh walker 50 feet mod I Goal Time Frame: 4-6 Weeks Goal Progress: needs consistency Goal 4:: Stand without support and reach and turn head 5 minutes without LOB Goal Time Frame: 4-6 Weeks Goal Progress: 2 minutes not 5 today Goal 5:: 3 45 foot walks with wh walker with supervision without fatigue causing him to sit suddenly. Goal Time Frame: 4-6 Weeks Goal Progress: not yet. Anticipated Interventions Functional Training to Include: Gait training For the Purpose of:: To improve gait and locomotor functions Please do not hesitate to contact me at [phone] by phone or Fax: if you have questions or concerns regarding this new plan of care! Sincerely, Jaylon Hurtado, DPT, OC
--- NOTE | 2017-10-22 16:07 | OTREVAL_ITS ---
José Funez, It has been my pleasure to treat JENNIFER CORONA over the last 49 visits for TBI. Please see the progress note below for an update on the occupational therapy plan of care! Subjective: Pt states he is feeling better- found out he had a infection- and is currently on antibiotics-pt states he did have some bilateral shoulder pain - Objective/Function: pt demo a right population health coach strength of 45#. left population health coach strength 15 #. pt demo bilateral weak shoulder flex4/5 shoulder internal/ext and shoulder ext- therapist adj. ex. to increase shoulder flex strength. pt to cont. witih PRE with gym eq- pt to return if shoulder pain increases after therapist adj to his PRE. Plan Plan: pt to cont with gym eq and HEP to increase pts functional strength and FMS of left hand for assistive hand- pt also ed. on posture while performing his ex. cher understanding- Anticipated Interventions Please do not hesitate to contact me at [phone] by phone or Fax: if you have questions or concerns regarding this new plan of care! Sincerely, Merry Torrez, OTR/L, CHT
--- NOTE | 2017-10-23 16:47 | HP.OTREVAL ---
José Funez, It has been my pleasure to treat JENNIFER CORONA over the last 49 visits for TBI. Please see the progress note below for an update on the occupational therapy plan of care! Subjective: Pt states he is feeling better- found out he had a infection- and is currently on antibiotics-pt states he did have some bilateral shoulder pain - Objective/Function: pt demo a right crop research scientist strength of 45#. left crop research scientist strength 15#. pt demo bilateral weak shoulder flex4/5 shoulder internal/ext and shoulder ext- therapist adj. ex. to increase shoulder flex strength. pt to cont. witih PRE with gym eq- pt to return if shoulder pain increases after therapist adj to his PRE. Plan Plan: pt to cont with gym eq and HEP to increase pts functional strength and FMS of left hand for assistive hand- pt also ed. on posture while performing his ex. cher understanding- pt will be seen in three weeks to check progress and D/C at that time. Anticipated Interventions Please do not hesitate to contact me at [phone] by phone or if you have questions or concerns regarding this new plan of care! Sincerely, Merry Torrez, OTR/L, CHT
--- NOTE | 2017-12-03 12:36 | HP.OTDCSUM_ITS ---
HP - OT D/C Summary It has been my pleasure to treat JENNIFER CORONA under orders from José Funez , for the diagnosis of TBI for a total of 50 visit(s). Please see the following information for a summary of their discharge status. - Overall Improvement % Improvement: 70 - Objective Objective/Function: pt demo a left payroll and benefits assistant strength of 15#. right payroll and benefits assistant of 45#. Right shoulder MMT 4+/5. right bicep 4+/5. right tricep 4/5. left UB shoulder and tricep 4-/5. left bicep 4/5 grossly throughout- pt demo improvement of left UB functional strength for assisting with functional transfers and mobility- - Plan Plan: pt to cont with gym eq and HEP to increase pts functional strength and FMS of left hand for assistive hand- pt also ed. on posture while performing his ex. demo understanding- pt D/C at this time. - D/C Information Discharge Comments: pt has progressed slowly with OT working on return of left UB strength- complications of medication changes and seizure activity did affect pts progress- at this time pt and are to cont.with health and wellness PRE. both and pt are agreable to POC- if pt would to decline was advised to return to drAurelio for further evaluation If there are questions or concerns regarding this patient's occupational therapy , please fell free to call me at [phone]. Thank you for the referral of this patient. Sincerely, Merry Torrez, OTR/L, CHT
--- NOTE | 2017-12-03 15:42 | HP.PTREVAL_ITS ---
José Funez, It has been my pleasure to treat JENNIFER CORONA over the last 68 visits for Gait difficulty. Please see the progress note below for an update on the physical therapy plan of care! Subjective: Saw Dr. Arroyo. Changed meds to increase seizure meds and decrease Keppra and no change to Parkinsons meds. Weekend was good but didn't sleep last night and today is functionally rough. Had cortisone injection in shoulder R at [facility] for impingement and R arm moving much better.and raises better. Doing standing at home but a little walking with WC follow up to 40 feet inconsistently. Wants to continue PT as goes through meds changes. 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 Sit to stand SBA, stand to sit Mod I, Amb with wh walker 30 feet SBA then 20 ft Min A. Stands two mintues without UE, tended to lean L and corrected today with VC. Unable to check specific goals due to computer downtime but walking goals inconsistent and seem to change maybe due to meds changes . Overall up and down, seizure effecting progress. Plan Plan: 2x/week for 4 weeks for gait with wh walker and stand balance working on consistency of improvement based on med changes. Fair prognosis. Goals Goal 1:: Walk 10 feet consistently with wh walker without need for WC follow to facilitate ADLS and safe ex at home Goal Time Frame: 6-8 Weeks Goal Progress: seizures effect, continue Goal 2:: Stand at and august without losing posture 3x10 Goal Time Frame: 6-8 Weeks Goal Progress: Not goal anylonger. Goal 3:: Walk with wh walker 50 feet mod I Goal Time Frame: 4-6 Weeks Goal Progress: still approp Goal 4:: Stand without support and reach and turn head 5 minutes without LOB Goal Time Frame: 4-6 Weeks Goal Progress: still approp Goal 5:: 3 45 foot walks with wh walker with supervision without fatigue causing him to sit suddenly. Goal Time Frame: 4-6 Weeks Goal Progress: still approp. Anticipated Interventions Functional Training to Include: Gait training For the Purpose of:: To improve gait and locomotor functions Please do not hesitate to contact me at [phone] by phone or Fax: if you have questions or concerns regarding this new plan of care! Sincerely, Jaylon Hurtado, DPT, OC
--- NOTE | 2017-12-31 19:10 | HP.PTREVAL_ITS ---
José Funez, It has been my pleasure to treat JENNIFER CORONA over the last 76 visits for Gait difficulty. Please see the progress note below for an update on the physical therapy plan of care! Subjective: Up and down with function and progress. Saw Dr. Funez one week ago and got B12 shot and he was great the next day walking as far as he ever has. Dr. Funez thinks seizure meds might be too high and make him tired. Dr. Funez faxed Dr. Arroyo about that and will see on the . Gaining weight. Walking at home is minimal. Stands and marches at bars at home and uses little chair cycle at home. Uses step up onto box at bars when they come on the weekend. Transfers at home are very good and needs a little help only. Most functional items are up and down. Cortisone injections have helped shoulders and posture. Walked down hallway twice in last week. Does stand at walker and let go for ex, unable to march. Doing sink exrcises marching and leg movements. Objective/Function: Today walks with wh walker 20 feet with CGA and legs giving out toward end. Sit to stand mod I with UE. Needs Min A to stand at first as he tends posterior L adnd corrects after many VC to stand for about 45 seconds I. Unable to march in place without losing balance today. Stand to sit requires assist to avoid falling back into chair as he loses balance BW before grabbing arm of chair. FUNCTIONALL, PATIENT IS STAGNANT OVERALL AND FRUSTRATINGLY INCONSISTENTLY UP AND DOWN WITHGAIT AND EVEN ABILITY TO TRANSFER AND STAND. MY BEST GUESS IS THIS IS CHEMICAL RELATED(MAYBE MEDS) HE DID DEFINITIVELY BETTER AFTER B12 INJECTION LAST WEEK AND HAS SHOWN GREAT IMPROVEMENTS IN THE PAST COINCIDING WITH MED CHANGES BUT PROGRESS IS STAGNANT OVERALL. Difficult talk with patient and today that, in the absence of postive meds changes, this may be the best function he gets. Plan Plan: 1-2X/WEEK . wILL START WITH WEEKLY VISITS UNLESS DOCTOR HAS AN ANSWER MEDICINALLY FOR THE INCONSISTENCY. CONTINUE TO WORK ON GAIT, STANDING BALANCE AND TRANSFERS ADN LOOK FOR PATTERN IN HIS UPS AND DOWNS. Goals Goal 1:: Walk 10 feet consistently with wh walker without need for WC follow to facilitate ADLS and safe ex at home Goal Time Frame: 6-8 Weeks Goal Progress: Not Progressing Goal 2:: Stand at walker and march without losing posture 3x10 Goal Time Frame: 6-8 Weeks Goal Progress: Not Progressing Goal 3:: Walk with wh walker 50 feet mod I Goal Time Frame: 4-6 Weeks Goal Progress: Not Progressing Goal 4:: Stand without support and reach and turn head 5 minutes without LOB Goal Time Frame: 4-6 Weeks Goal Progress: Not Progressing Goal 5:: 3 45 foot walks with wh walker with supervision without fatigue causing him to sit suddenly. Goal Time Frame: 4-6 Weeks Goal Progress: Not Progressing Goal 6:: Maintain current functional ability at home while diminishing PT to weekly. Goal Time Frame: 2-4 Weeks Goal Progress: NEW GOAL Anticipated Interventions Functional Training to Include: Gait training For the Purpose of:: To improve gait and locomotor functions Please do not hesitate to contact me at [phone] by phone or Fax: if you have questions or concerns regarding this new plan of care! Sincerely, Jaylon Hurtado, DPT, OC
--- NOTE | 2018-01-29 17:03 | HP.PTREVAL_ITS ---
José Chi Armin, It has been my pleasure to treat JENNIFER CORONA over the last 80 visits for Gait difficulty. Please see the progress note below for an update on the physical therapy plan of care! Subjective: says defionite signs of improvements since Dr. Arroyo added stimulant med in January 09. Feels like he has more energy. Standing ex at home but not a lot of walking. Objective/Function: Sit to stand today requires multiple attempts(tired from his treatment prior to recheck0 but able to do this Mod I with arms of chair. Stands tending posterior but can stand 8-10 seconds at a time without cues without holding onto walker. Stand to sit reaching appropriatelyu Mod I. Walks with wh walker 10 feet with very short steps and tending posterior, needs cues for posture. OVERALL NOT MUCH CHANGE FROM LAST RECHECK DESPITE SAYING THAT HE IS DOING BETTER AT HOME. THEY SEEM TO BE AT LEAST MAINTAINING WALK AND STAND ABILITY WHILE DOCTOR FINDS RIGHT MEDICATION LEVELS. Plan Plan: WEEKLY X 4 WEEKS TO WORK ON STANDING WITHOUT ASSIST, GAIT AT WH WALKER EMPHASIZING DISTANCE AND KEEPING WEIGHT FORWARD ADN WALKER MOVING TO AVOID LOB BW. Goals Goal 1:: Walk 10 feet consistently with walker without need for WC follow to facilitate ADLS and safe ex at home Goal Time Frame: 6-8 Weeks Goal Progress: Not Progressing Goal 2:: Stand at walker and august without losing posture 3x10 Goal Time Frame: 6-8 Weeks Goal Progress: Not Progressing Goal 3:: Walk with wh walker 50 feet mod I Goal Time Frame: 4-6 Weeks Goal Progress: Not Progressing Goal 4:: Stand without support and reach and turn head 5 minutes without LOB Goal Time Frame: 4-6 Weeks Goal Progress: Not Progressing Goal 5:: sTAND 1 MINUTE WITHOUT ASSIST WITHOUT LOB BW TO HELP WITH TRANSFERS AND DRESSING. Goal Time Frame: 2-4 Weeks Goal Progress: NEW GOAL Goal 6:: Maintain current functional ability at home while diminishing PT to weekly. Goal Time Frame: 2-4 Weeks Goal Progress: SUBJECT MET ADN APPROP. Anticipated Interventions Functional Training to Include: Gait training For the Purpose of:: To improve gait and locomotor functions Please do not hesitate to contact me at [phone] by phone or Fax: if you have questions or concerns regarding this new plan of care! Sincerely, Jaylon Hurtado, DPT, OC
--- NOTE | 2018-02-26 15:46 | HP.PTREVAL_ITS ---
José Funez, It has been my pleasure to treat JENNIFER CORONA over the last 82 visits for Gait difficulty. Please see the progress note below for an update on the physical therapy plan of care! Subjective: Had a reaction to new Parkinsons med started 3rd week of January. Skin was red and constipation, weak and tired . Stopped med and pool ee him March 12. Has been making an effort to stand at home. Stretching daily at home since taken off meds. Came to gym for ex on machines saturday and saturday. For LE in gym doing step up and nustep. says he is tighter in the adductors and harder to clean when incontinent. Objective/Function: Pt has shown no improvement over anjum last month but has had some problems with allergies to new medication. He is showing poor motor control in upper extremities and leg as far as shifting weight or moving UE when verbally cued, he cannot do it or takes an extraordinary amount of time. Min A with the movement of the stirrups on his WC but needs only VC, can reach them and move them himself but cognitively seems to lack the awareness to complete the task without cues. Very slow to elevate arms to put on gait belt and gets about 90 degrees of elevation. Does not shift weight to the right ins tanding despite multiple VC, TC and visual cues with the mirror. Needs multiple visual and verabl cues to scoot and to roll onto side. Needs Min A to sit to stand and very slow to attempt to use UE to psuh almost confused on where to ptu them. Sidelie to sit is I. Stand requires Min A for balance and patient tends to use UE on walker to balacne instead of feet and legs. L hip ext rotation passively limted to netral and very tight causing IR at the femur and has 10 degree knee flexion contracture L and 5 degreees R. Otherwise able to lie flat with VC. ankle AROM WFL, knee ext adn flexion is slow but able in available ROM, L hip movements limited in add and abduction and extension and weak at 3+/5. OVERALL PATIENT IS DIGRESSING IN MOBILITY FOR UNKNOWN REASON, POSSIBLY ALLERGIESS TO MEDS/SEIZURES?, NOT SURE OTHER POSSIBLE REASONS BUT COGNITIVE REASONING SEEMS TO BE AFFECTED ALSO. THIS IS CAUSING ROM LIMITATIONS IN HIP AND LACK OF USE IN UE WHICH IS AFFECTING OVERALL MOBILITY. NEED TO GET BACK TO BASICS HE TENDS TO RELY ON THE WC TO HOLD HIM UP. CONSTANTLY CHANGING CONDITION AND POOR MOBILITY AND CONSTANTLY CHANGING MEDS MAKE PT STILL APPROPRIATE DESPITE LACK OF PROGRESSION. Plan Plan: NEW PLAN. WEEKLY X 4 WEEKS TO WORK ON... 1. ROLLING AND SCOOTING AND SITTING WITHOUT SUPPORT. 2. STRETCH l HIP AND ROM TO L HIP AND B KNEES. 3. TRASNFER SIT TO STAND AND STAND BALANCE. qUESTIONABLE PROGNOSIS. Goals Goal 1:: SIT UNSUPPORTED WITH APPROPRIATE POSTRUE 5 MINUTES TO PERFORM TASK WITHOUT ASSIST Goal Time Frame: 4-6 Weeks Goal Progress: NEW GOAL Goal 2:: Lie flat on back, roll to side and sit up without hands on assist. Goal Time Frame: 4-6 Weeks Goal Progress: NEW GOAL Goal 3:: scoot to edge of chair and put stirrups out without VC I Goal Time Frame: 4-6 Weeks Goal Progress: NEW GOAL Goal 4:: stand 1 minute at walker without hands on assist Goal Time Frame: 4-6 Weeks Goal Progress: NEW GOAL Goal 5:: sTAND 1 MINUTE WITHOUT ASSIST WITHOUT LOB BW TO HELP WITH TRANSFERS AND DRESSING. Goal Time Frame: 2-4 Weeks Goal Progress: Not Progressing Goal 6:: Maintain current functional ability at home while diminishing PT to weekly. Goal Time Frame: 2-4 Weeks Goal Progress: Not Progressing Anticipated Interventions Functional Training to Include: Gait training For the Purpose of:: To improve gait and locomotor functions Please do not hesitate to contact me at [phone] by phone or Fax: if you have questions or concerns regarding this new plan of care! Sincerely, Jaylon Hurtado, DPT, OC
== END 2018-02-26 19:00 | disposition home or self-care (01) ==
LOC: PT 14:00
PROVIDERS: Family Provider Family Medicine Geriatric Medicine; PCP Family Medicine Geriatric Medicine; Visit Provider Family Medicine Geriatric Medicine
DX: G20 Parkinson's disease (principal)
CPT/HCPCS: 97110; 97116; 97164; 97168; 97530; G8978; G8979

== ENCOUNTER 2018-02-28 13:28 | Emergency (ER) | payer MEDICARE, SELFPAY ==
[2018-02-28 13:28] VITALS: BP 140/76; PULSE 85; RESP 14; TEMP 36.8; O2SAT 97; BMI 23.6
[2018-02-28 14:43] VITALS: BP 155/100; PULSE 91; RESP 15; O2SAT 95
[2018-02-28 14:56] LABS: Bedside Glucose 118 mg/dL (70-110)
[2018-02-28] MEDS: 0.9% Normal Saline 1,000 ML 1000 ML IV (15:02)
[2018-02-28 15:03] VITALS: BP 149/87; PULSE 91; RESP 14; O2SAT 96
[2018-02-28 15:18] LABS: Anion Gap 9 (5-15); BUN 14 mg/dL (7-18); BUN/Creat Ratio 16.8 RATIO (10-20); Calcium,Total 9.5 mg/dL (8.5-10.1); Chloride 91 mmol/L (98-107); Creatinine, Serum 0.84 mg/dL (0.70-1.30); EST Glomerular Filtration Rate 95 mL/min (>60); Est Glom Filt Rate - Afr Amer 115 mL/min (>60); Estimated Creatinine Clearance 75.98 ml/min; Glucose 113 mg/dL (74-106); Potassium 4.3 mmol/L (3.5-5.1); Sodium Level 129 mmol/L (136-145)
[2018-02-28 15:39] LABS: Bacteria 0 SEEN /hpf (None Seen); Mucous, Urine 0 SEEN /hpf (<or=2+); Red Blood Cells-Urine 0 SEEN /hpf (0-5); Squamous Epithelial Cells - UA 0 SEEN /hpf (0-5)
[2018-02-28 15:41] LABS: Absolute Lymphocyte Count 1.22 X10^3/ul (0.83-4.51); Absolute Neutrophil Count 5.7 X10^3/uL (2.0-7.7); Basophil# 0.03 X10^3/uL; Basophil% 0.4 % (0-1); Eosinophil# 0.14 X10^3/uL; Eosinophils% 1.7 % (0-5); Hematocrit 44.2 % (40-54); Hemoglobin 14.9 g/dl (13.0-16.5); Lymphocyte # 1.22 X10^3/ul (4.0); Mean Corp Hgb Conc 33.7 g/gl (32-36); Mean Corpuscular Hgb 29.9 pg (27.0-32.0); Mean Corpuscular Volume 88.8 fL (80-94); Mean Platelet Vol. 9.9 fl (6.2-12.0); Monocyte# 1.04 X10^3/uL; Monocyte% 12.7 % (0-10); Neutrophil # 5.72 X10^3/uL (2.7-7.7); Neutrophil % 70.1 % (47-70); Platelet Count 306 K/mm3 (150-450); RBC Distribution Width CV 13.7 % (11.6-14.6); RBC Distribution Width SD 44.3 fl (35.1-43.9); Red Blood Count 4.98 M/mm3 (4.6-6.2); White Blood Count 8.2 K/mm3 (4.4-11.0)
[2018-02-28 15:45] LABS: POSITIVE COUNT NO; POSITIVE DIFFERENTIAL NO; POSITIVE MORPHOLOGY NO
[2018-02-28 15:59] LABS: Color, Urine Yellow (Yellow); Glucose, Dipstick Normal (Normal); Ketone-Dipstick Negative (Negative); Leukocyte Esterase-Dipstick 25 /ul (Negative); Nitrite-Dipstick Negative (Negative); Occult Blood-Urine Negative /ul (Negative); Protein-Dipstick 15 mg/dl (Negative); Urine Bilirubin Dipstick Negative (Negative); Urine Clarity Clear (Clear); Urine Urobilinogen Normal (Normal)
[2018-02-28 16:00] VITALS: BP 171/79; PULSE 92; RESP 16; O2SAT 93
[2018-02-28 16:12] LABS: White Blood Cells 0-5 SEEN /hpf (0-5)
--- NOTE | 2018-02-28 16:38 | NURSING ---
CALLING [facility] FOR TRANSFER
--- NOTE | 2018-02-28 16:41 | ED.VISSUMM ---
- ER Visit Summary Date of Service: 02/28/18 Chief Complaint: Altered mental status History of Present Illness: The patient is a 73 M who presents with altered mental status that has been getting aggressively worse over the past few days. states this has been a gradual decline. states he has not been as active at home as normal. also states that his speech has been less intelligible over the past couple days. also states patient has been incontinent of urine over the past 3 days. denies any fevers or chills. Patient does admit to a cough. states he has not produced any sputum. Patient denies any nausea or vomiting. Patient denies any headache. Patient denies any head injury. Physical Examination: Vital signs are stable. Patient is afebrile. Patient is in no acute distress. Oral mucosa is pink and moist. Pupils are equal, round, reactive to light bilaterally. Extraocular muscles are intact. Neck is supple. Trachea is midline. There is no JVD noted. Heart was regular rate and rhythm. Lungs are clear and equal bilaterally. There is good respiratory effort noted. Abdomen is soft nontender. Cranial nerves II through XII are grossly intact. There are no focal motor or sensory deficits noted. The remaining physical exam is within normal limits. Test Results: CBC was within normal limits. Basic metabolic profile showed a mild hyponatremia of 129 and chloride of 91. Urinalysis was normal. Chest x-ray shows elevation of the right hemidiaphragm. CT scan of the brain shows a small acute subdural hematoma overlying the right frontal and parietal lobes. This was interpreted by the radiologist. Emergency Department Course and Treatment: Case was discussed with the transfer center at [facility]. Patient requested to be transferred to [facility] because his neurosurgeon is there. Case was discussed with Dr. Zhang. He accepted the patient but requested that the patient be transferred to the emergency department. Patient and family understand and are agreeable with the plan. All questions were answered. Disposition: Transferred to [facility] Impression: Subdural hematoma This note was generated with [employer] dictation software. It may contain incorrect words, spelling, and punctuation that were not noted in review of the chart prior to signing ED Disposition - Plan for ED Patient: Disposition: [facility] Chief Complaint: Alt LOC Diagnosis: Subdural hematoma Referrals: José Funez Chi, MD [Primary Care Provider] -
[2018-02-28 17:00] VITALS: BP 172/79; PULSE 90; RESP 22; O2SAT 95
--- NOTE | 2018-02-28 17:40 | NURSING ---
CALLED [facility], SCOTTIE IS FROM [facility]
== END 2018-02-28 18:12 | disposition short-term general hospital (02) ==
PROVIDERS: Emergency Provider Emergency Medicine; Family Provider Family Medicine Geriatric Medicine; PCP Family Medicine Geriatric Medicine
DX: I62.01 Nontraumatic acute subdural hemorrhage (principal); R47.89 Other speech disturbances; G20 Parkinson's disease; Z79.899 Other long term (current) drug therapy
CPT/HCPCS: 70450; 71045; 80048; 81001; 82962; 85025; 99285; J7030; A4216

== ENCOUNTER → 2018-03-03 15:07 | Outpatient (CLI) | payer MEDICARE, SELFPAY | PROVIDERS: Family Provider Family Medicine Geriatric Medicine; PCP Family Medicine Geriatric Medicine; Visit Provider Family Medicine Geriatric Medicine | DX: I10 Essential (primary) hypertension (principal); E55.9 Vitamin D deficiency, unspecified | CPT/HCPCS: 36415; 84443 ==

== ENCOUNTER → 2018-03-10 11:46 | Outpatient (CLI) | payer MEDICARE, SELFPAY ==
[2018-03-10 14:14] LABS: AST(SGOT) 12 U/L (15-37); Alanine Aminotransfer ALT/SGPT 13 U/L (16-61); Albumin, Serum 3.9 g/dL (3.2-5.0); Alkaline Phosphatase 88 U/L (45-117); Anion Gap 8 (5-15); BUN 14 mg/dL (7-18); BUN/Creat Ratio 14.6 RATIO (10-20); Calcium,Total 9.3 mg/dL (8.5-10.1); Chloride 98 mmol/L (98-107); Creatinine, Serum 0.96 mg/dL (0.70-1.30); EST Glomerular Filtration Rate 81 mL/min (>60); Est Glom Filt Rate - Afr Amer 98 mL/min (>60); Glucose 105 mg/dL (74-106); Potassium 4.1 mmol/L (3.5-5.1); Protein, Total 7.9 g/dL (6.4-8.2); Sodium Level 138 mmol/L (136-145)
[2018-03-10 15:37] LABS: Absolute Lymphocyte Count 1.15 X10^3/ul (0.83-4.51); Absolute Neutrophil Count 4.7 X10^3/uL (2.0-7.7); Basophil# 0.04 X10^3/uL; Basophil% 0.6 % (0-1); Eosinophil# 0.14 X10^3/uL; Eosinophils% 2.1 % (0-5); Hematocrit 44.8 % (40-54); Hemoglobin 14.9 g/dl (13.0-16.5); Lymphocyte # 1.15 X10^3/ul (4.0); Lymphocyte % 16.9 % (19-41); Mean Corp Hgb Conc 33.3 g/gl (32-36); Mean Corpuscular Volume 90.3 fL (80-94); Mean Platelet Vol. 10.2 fl (6.2-12.0); Monocyte# 0.78 X10^3/uL; Monocyte% 11.5 % (0-10); Neutrophil # 4.68 X10^3/uL (2.7-7.7); Neutrophil % 68.6 % (47-70); POSITIVE COUNT NO; POSITIVE DIFFERENTIAL NO; POSITIVE MORPHOLOGY NO; Platelet Count 337 K/mm3 (150-450); RBC Distribution Width CV 13.8 % (11.6-14.6); RBC Distribution Width SD 45.6 fl (35.1-43.9); Red Blood Count 4.96 M/mm3 (4.6-6.2); White Blood Count 6.8 K/mm3 (4.4-11.0)
[2018-03-13 08:11] LABS: KEPPRA (LEVETIRACETAM) 15.6 ug/mL (10.0-40.0)
[2018-03-13 13:53] LABS: Lamotrigine (Lamictal) Level 7.7 ug/mL (2.0-20.0); Trileptal-Oxcarbazepine 18 ug/mL (10-35)
== END ==
PROVIDERS: Family Provider Family Medicine Geriatric Medicine; PCP Family Medicine Geriatric Medicine; Visit Provider Psychiatry & Neurology Neurology
DX: E87.1 Hypo-osmolality and hyponatremia (principal); G40.019 Localization-related (focal) (partial) idiopathic epilepsy and epileptic syndromes with seizures of localized onset, intractable, without status epilepticus
CPT/HCPCS: 36415; 80048; 80076; 80156; 80177; 82542; 85025

== ENCOUNTER 2018-03-27 14:00 | Outpatient (RCR) | payer MEDICARE, SELFPAY ==
--- NOTE | 2018-03-27 18:18 | HP.PTREVAL_ITS ---
José Funez, It has been my pleasure to treat JENNIFER CORONA over the last 86 visits for Gait difficulty. Please see the progress note below for an update on the physical therapy plan of care! Subjective: Up and down. Was motionless yesterday possibly due to dehydration. Still working out with Nustep adn standing at parallel bars. Saw photograph printer. Gets seizures twitching every 3-4 days whcih make him very tired adn effect function. says getting legs into bed easier this month. Standing pivot transer with walker says without assist, just supervision yesterday. Some days can and some days cannot. To doctor in 4 weeks neuro [facility]. No new changes to meds in last month. Did have bloodwork done. Still on Parkinson's and seizure meds. Objective/Function: Pt unable to move sit to stand despite 4 attempts today. Knees will not straighten and will not let go of chair. Harder to understand generally and understands commands less as time goes by. Many commands needed for patient to attempt to sit unsupported but can do it for minutes at a time. Also took WC stirrups off I today with VC to do so. Unable to get to table today for goal check. Pt and frustrated with lack of progress, will see doc in April for possible seizure meds or parkinsons meds change. OVERALL NOT MUCH IMPROVEMENT AND NO IMPROVEMENT IN STANDING OR TRANSFERS. UNABLE TO WALK SINCE LAST RECHECK. FRUSTRATING PATIENT SEEMS TO BE UP AND DOWN FOR ONE DAY TRANSFERRING AND THE NEXT UNABLE TO STAND. Plan Plan: rECOMMENDED CONTACT DOCTOR REGARDING UP AND DOWN NATURE BUT HE HAS BEEN THIS WAY FOR A WHILE NOW. WEEKLY X 4 WEEKS TO WORK ON SITTING UNSUPPORTED AND REACHING AND SIT TO STAND TRANSFER AND STAND. EDUCATED PT AND THAT WE WOULD HAVE TO DISCHARGE TO I PROGRAM DUE TO LACK OF PROGRESS IF NO PROGRESS MADE IN THE NEXT MONTH. THEY WILL CONTINUE WITH GYM EX. QUESTIONABLE PROGNOSIS Goals Goal 1:: Sit unsupported with appropriate posture 5 minutes to perform task without assist. Goal Time Frame: 4-6 Weeks Goal Progress: Goal Met Goal 2:: Lie flat on back and roll to side and sit up without hands on assist Goal Time Frame: 4-6 Weeks Goal Progress: UNABLE TO TEST Goal 3:: Scoot to edge of chair and put stirrups out on WC without VC I. Goal Time Frame: 4-6 Weeks Goal Progress: Goal Met Goal 4:: Stand 1 minute at walker without hands on assist Goal Time Frame: 4-6 Weeks Goal Progress: Not Progressing Goal 5:: Stand 1 minute without assist without LOB BW to help with transfers and dressing Goal Time Frame: 2-4 Weeks Goal Progress: STILL APPROP.NOT MET Anticipated Interventions Patient/Client Instruction: Educate patient on: Condition, Plan of Care For the Purpose of:: To decrease level of supervision to perform tasks, To improve gait and locomotor functions Therapeutic Exercise to Include: Strength training, Flexibilty training, Active ROM Comment: gross motor For the Purpose of:: To improve performance and independence with ADL's, To improve gait and locomotor functions Manual Therapy Techniques to Include: Passive ROM For the Purpose of:: To increase ROM Please do not hesitate to contact me at [phone] by phone or if you have questions or concerns regarding this new plan of care! Sincerely, Jaylon Hurtado, ASHANTIT, OC
--- NOTE | 2018-04-17 14:17 | HP.PTDCSUM_ITS ---
HP - PT D/C Summary It has been my pleasure to treat JENNIFER CORONA under orders from José Funez, for the diagnosis of Gait difficulty for a total of 86 visit(s). Discharge Date: 04/17/18 Please see the following information for a summary of their discharge status. - Subjective Subjective: Up and down. Was motionless yesterday possibly due to dehydration. Still working out with [employer] adn standing at parallel bars. 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 Gets seizures twitching every 3-4 days whcih make him very tired adn effect function. says getting legs into bed easier this month. Standing pivot transer with walker says without assist, just supervision yesterday. Some days can and some days cannot. To doctor in 4 weeks neuro Bavis. No new changes to meds in last month. Did have bloodwork done. Still on Parkinson's and seizure meds. - Objective Objective/Function: Pt unable to move sit to stand despite 4 attempts today. Knees will not straighten and will not let go of chair. Harder to understand generally and understands commands less as time goes by. Many commands needed for patient to attempt to sit unsupported but can do it for minutes at a time. Also took WC stirrups off I today with VC to do so. Unable to get to table today for goal check. Pt and frustrated with lack of progress, will see doc in April for possible seizure meds or parkinsons meds change. OVERALL NOT MUCH IMPROVEMENT AND NO IMPROVEMENT IN STANDING OR TRANSFERS. UNABLE TO WALK SINCE LAST RECHECK. FRUSTRATING PATIENT SEEMS TO BE UP AND DOWN FOR ONE DAY TRANSFERRING AND THE NEXT UNABLE TO STAND. - Goals Goal 1:: Sit unsupported with appropriate posture 5 minutes to perform task without assist. Goal Progress: Goal Met Goal 2:: Lie flat on back and roll to side and sit up without hands on assist Goal Progress: UNABLE TO TEST Goal 3:: Scoot to edge of chair and put stirrups out on WC without VC I. Goal Progress: Goal Met Goal 4:: Stand 1 minute at walker without hands on assist Goal Progress: Not Progressing Goal 5:: Stand 1 minute without assist without LOB BW to help with transfers and dressing Goal Progress: STILL APPROP.NOT MET - Plan Plan: Pt to doctor next week, will get new script to initiate further PT after the recent med changes. Will re-evaluate at that time and update doctor. - D/C Information Discharge Comments: D/C this chart in favor of re-evaluation after doctor visit next week if found appropriate by neurologist. If there are questions or concerns regarding this patient's physical therapy, please feel free to call me at [phone]. Thank you for the referral of this patient. Sincerely, Jaylon Hurtado, DPT, OC
== END 2018-03-27 19:00 | disposition home or self-care (01) ==
LOC: PT 14:00
PROVIDERS: Family Provider Family Medicine Geriatric Medicine; PCP Family Medicine Geriatric Medicine; Visit Provider Family Medicine Geriatric Medicine
DX: G20 Parkinson's disease (principal); M75.51 Bursitis of right shoulder; M75.41 Impingement syndrome of right shoulder; M19.011 Primary osteoarthritis, right shoulder
CPT/HCPCS: 97140; 97530

== ENCOUNTER 2018-04-02 15:42 | Emergency (ER) | payer MEDICARE, SELFPAY ==
[2018-04-02 15:44] VITALS: BP 136/71; PULSE 85; RESP 16; TEMP 36.4; O2SAT 93; BMI 22.8
--- NOTE | 2018-04-02 16:36 | CT_ITS ---
STUDY: CT BRAIN WITHOUT CONTRAST REASON FOR EXAM: Male, 73 years old. DECREASED UNRESPONSIVENESS, HX OF SEIZURES, ON NEW MEDS FOR PARKINSONS, SUBARACHNOID HEMATOMA, BRAIN TUMOR REMOVED 1991 RADIATION DOSAGE (If Supplied By Facility): CTDIvol = ( 44.99 ) mGy, DLP = ( 779.24 ) mGycm Individualized dose optimization techniques were used for this CT. TECHNIQUE: Transaxial CT imaging of the brain was performed without administration of intravenous contrast material. COMPARISON: 9.7.18 FINDINGS: Normal soft tissue structures. There is a right craniotomy/craniectomy. There are calcifications around the carotid artery. These are noted in the cavernous carotid arteries. There is a calcified dural flap under the craniotomy site. There are scattered calcified right gyral calcifications. Minimal calcification of the left gyrus. There is mild cerebral atrophy with widening of the extra-axial spaces and ventricular dilatation. There are areas of decreased attenuation within the white matter tracts of the supratentorial brain, consistent with microvascular disease changes. Normal basal ganglia and thalami. Normal brainstem. There is mild cerebellar atrophy. There is no intracranial hemorrhage. There are no findings of an acute ischemic infarction. Normal visualized paranasal sinuses. CT/Brain/Head without Contrast IMPRESSION: Chronic involutional changes of the brain. There are no acute findings. Postsurgical craniotomy changes. Electronically Signed: Leopoldo Julio MD at 19:04 EDT , Service support ,
--- NOTE | 2018-04-02 16:36 | EKG12_ITS ---
Test Reason : WEAKNESS Blood Pressure : / mmHG Vent. Rate : 081 BPM Atrial Rate : 081 BPM P-R Int : 176 ms QRS Dur : 110 ms QT Int : 382 ms P-R-T Axes : 065 057 051 degrees QTc Int : 443 ms Normal sinus rhythm Normal ECG Confirmed by GHADA AGUILAR, KAYLAH ([id number]), commercial production editor NINA FALCON ([id number]) on 04/07/2018 3:57:32 PM Referred By: SCOT Confirmed By:KAYLAH URRUTIA MD
--- NOTE | 2018-04-02 16:40 | RAD_ITS ---
STUDY: X-RAY CHEST REASON FOR EXAM: Male, 73 years old. Weakness decreased responsiveness TECHNIQUE: Single frontal view of the chest. COMPARISON: February 28, 2018 FINDINGS: Chronic appearing increased interstitial lung markings. Healed left proximal humeral fracture. There is an elevated right hemidiaphragm. There is no demonstrated pleural abnormality. Normal heart size. Normal mediastinum and senthil. Normal visualized pulmonary arteries. There is atherosclerotic calcification of the aortic arch with tortuosity. There are diffuse degenerative changes of the visualized thoracic spine. There is degenerative osteoarthritis of the bilateral shoulders. There is no demonstrated abnormality of the visualized soft tissue structures of the upper abdomen. RAD/Chest 1 View (Portable) IMPRESSION: There are no acute findings. Electronically Signed: Leopoldo Julio MD at 17:19 EDT , Service support ,
[2018-04-02 16:52] VITALS: BP 159/84; PULSE 83; RESP 16; TEMP 36.3; O2SAT 95
[2018-04-02] MEDS: 0.9% Normal Saline 1,000 ML 150 ML IV (16:52)
[2018-04-02 17:23] LABS: Absolute Lymphocyte Count 0.99 X10^3/ul (0.83-4.51); Absolute Neutrophil Count 2.2 X10^3/uL (2.0-7.7); Basophil# 0.01 X10^3/uL; Basophil% 0.3 % (0-1); Eosinophil# 0.01 X10^3/uL; Eosinophils% 0.3 % (0-5); Hematocrit 42.3 % (40-54); Hemoglobin 14.2 g/dl (13.0-16.5); Lymphocyte # 0.99 X10^3/ul (4.0); Lymphocyte % 25.6 % (19-41); Mean Corp Hgb Conc 33.6 g/gl (32-36); Mean Corpuscular Volume 89.2 fL (80-94); Mean Platelet Vol. 10.4 fl (6.2-12.0); Monocyte# 0.68 X10^3/uL; Monocyte% 17.6 % (0-10); Neutrophil # 2.16 X10^3/uL (2.7-7.7); Neutrophil % 55.9 % (47-70); Platelet Count 197 K/mm3 (150-450); RBC Distribution Width CV 13.5 % (11.6-14.6); RBC Distribution Width SD 43.9 fl (35.1-43.9); Red Blood Count 4.74 M/mm3 (4.6-6.2); White Blood Count 3.9 K/mm3 (4.4-11.0)
[2018-04-02 17:27] LABS: Anion Gap 8 (5-15); BUN 17 mg/dL (7-18); BUN/Creat Ratio 17.5 RATIO (10-20); Calcium,Total 8.8 mg/dL (8.5-10.1); Chloride 95 mmol/L (98-107); Creatinine, Serum 0.97 mg/dL (0.70-1.30); EST Glomerular Filtration Rate 80 mL/min (>60); Est Glom Filt Rate - Afr Amer 97 mL/min (>60); Estimated Creatinine Clearance 65.43 ml/min; Glucose 94 mg/dL (74-106); Sodium Level 131 mmol/L (136-145)
[2018-04-02 17:40] LABS: POSITIVE COUNT NO; POSITIVE DIFFERENTIAL NO; POSITIVE MORPHOLOGY NO
[2018-04-02 18:06] VITALS: BP 163/94; PULSE 94; RESP 16; O2SAT 94
[2018-04-02 18:09] LABS: Bacteria 0 SEEN /hpf (None Seen); Mucous, Urine 0 SEEN /hpf (<or=2+); Red Blood Cells-Urine 0 SEEN /hpf (0-5); Squamous Epithelial Cells - UA 0 SEEN /hpf (0-5); White Blood Cells 0 SEEN /hpf (0-5)
[2018-04-02 18:16] LABS: Color, Urine Yellow (Yellow); Glucose, Dipstick Normal (Normal); Ketone-Dipstick 5 mg/dl (Negative); Leukocyte Esterase-Dipstick Negative /ul (Negative); Nitrite-Dipstick Negative (Negative); Occult Blood-Urine Negative /ul (Negative); Protein-Dipstick Negative (Negative); Urine Bilirubin Dipstick Negative (Negative); Urine Clarity Clear (Clear); Urine Urobilinogen Normal (Normal)
--- NOTE | 2018-04-02 19:20 | ED.VISSUMM ---
- ER Visit Summary Date of Service: 04/02/18 Chief Complaint: [Realized weakness and decreased activity.] History of Present Illness: The patient is a 73 M [resents the emergency department with his who brings him in for complaint of increased lethargy and generalized weakness since yesterday. Patient apparently was sitting at lunch yesterday and his eyes kind of rolled back in his head and started to sway. Patient was less responsive than usual. Patient had a hard time holding his utensils. Patient also was noted to be more weak than usual before bed last night. Patient speech is been a little more garbled than usual. Patient does have a history of Parkinson's. Patient has had prior fall and subdural hematoma. Patient himself denies any complaints in the department. not sure if maybe his medications are making him feel this way.] Physical Examination: [HEENT-PERRLA, EOMI. Cranial nerves II through XII grossly intact. TMs clear. Mucous membranes moist. No adenopathy. Cardiovascular-regular rate and rhythm without murmur or ectopy Lungs-clear to auscultation, chest wall stable without crepitus or subcu emphysema Abdomen-normoactive bowel sounds, soft, nontender, no rebound or rigidity, no peritoneal signs. Neuro exam -no focal weakness. Patient moves all extremities without difficulty. She answers questions appropriately and even makes jokes. Extremities-intact ?4, normal range of motion, normal pulses, atraumatic] Test Results: [CT scan of the brain without contrast showed chronic changes. Chest x-ray was unremarkable. EKG obtained arrival shows sinus rhythm with a ventricular rate of 81 bpm. CBC with differential was unremarkable. Chemistries unremarkable. Urinalysis was normal. Troponin was less than 0.015.] Emergency Department Course and Treatment: [Patient received a liter normal same fluid bolus. At this point his states that he is much improved and basically back to his baseline and she feels the fluids were very beneficial.] Patient's is comfortable taking him home and does not want him admitted at this time. She feels like she can care for him. Treatment Plan: [Patient to follow-up with primary care physician 3-5 days] Disposition: [Discharged home in stable condition] Impression: [Generalized weakness-etiology uncertain] This note was generated with [employer] software. It may contain incorrect words, spelling, and punctuation that were not noted in review of the chart prior to signing ED Disposition - Plan for ED Patient: Chief Complaint: Alt LOC Referrals: José Funez Chi, MD [Primary Care Provider] -
--- NOTE | 2018-04-02 19:24 | ED.DEP ---
ED Disposition - Plan for ED Patient: Chief Complaint: Alt LOC Instructions: ED Weakness [facility] Referrals: José Funez Chi, MD [Primary Care Provider] - 3-5 Days
[2018-04-02 19:37] VITALS: BP 174/89; PULSE 95; RESP 18; O2SAT 97
== END 2018-04-02 19:50 | disposition home or self-care (01) ==
LOC: ED 16:47
PROVIDERS: Emergency Provider Emergency Medicine; Family Provider Family Medicine Geriatric Medicine; PCP Family Medicine Geriatric Medicine
DX: R53.1 Weakness (principal); G20 Parkinson's disease; Z79.899 Other long term (current) drug therapy
CPT/HCPCS: 70450; 71045; 80048; 81001; 84484; 85025; 93005; 96360; 96361; 99284; J7030

== ENCOUNTER → 2018-04-21 11:45 | Outpatient (CLI) | payer MEDICARE, SELFPAY ==
[2018-04-21 13:48] LABS: Absolute Lymphocyte Count 1.16 X10^3/ul (0.83-4.51); Absolute Neutrophil Count 4.6 X10^3/uL (2.0-7.7); Basophil# 0.02 X10^3/uL; Basophil% 0.3 % (0-1); Eosinophil# 0.11 X10^3/uL; Eosinophils% 1.6 % (0-5); Hemoglobin 14.9 g/dl (13.0-16.5); Lymphocyte # 1.16 X10^3/ul (4.0); Lymphocyte % 17.1 % (19-41); Mean Corp Hgb Conc 33.1 g/gl (32-36); Mean Corpuscular Hgb 29.7 pg (27.0-32.0); Mean Corpuscular Volume 89.8 fL (80-94); Mean Platelet Vol. 9.8 fl (6.2-12.0); Monocyte# 0.93 X10^3/uL; Monocyte% 13.7 % (0-10); Neutrophil # 4.56 X10^3/uL (2.7-7.7); Neutrophil % 67.2 % (47-70); Platelet Count 360 K/mm3 (150-450); RBC Distribution Width CV 13.4 % (11.6-14.6); RBC Distribution Width SD 43.3 fl (35.1-43.9); Red Blood Count 5.01 M/mm3 (4.6-6.2); White Blood Count 6.8 K/mm3 (4.4-11.0)
[2018-04-21 13:54] LABS: POSITIVE COUNT NO; POSITIVE DIFFERENTIAL NO; POSITIVE MORPHOLOGY NO
[2018-04-21 14:02] LABS: BUN 11 mg/dL (7-18); BUN/Creat Ratio 12.9 RATIO (10-20); Creatinine, Serum 0.85 mg/dL (0.70-1.30); EST Glomerular Filtration Rate 93 mL/min (>60); Est Glom Filt Rate - Afr Amer 113 mL/min (>60); Globulin 4.2 g/dL (2.2-4.2); Glucose 96 mg/dL (74-106); Protein, Total 8.2 g/dL (6.4-8.2)
[2018-04-21 14:03] LABS: AST(SGOT) 15 U/L (15-37); Alanine Aminotransfer ALT/SGPT 18 U/L (16-61); Alkaline Phosphatase 93 U/L (45-117); Anion Gap 9 (5-15); Calcium,Total 9.4 mg/dL (8.5-10.1); Chloride 99 mmol/L (98-107); Potassium 4.3 mmol/L (3.5-5.1); Sodium Level 138 mmol/L (136-145)
[2018-04-23 16:10] LABS: KEPPRA (LEVETIRACETAM) 15.9 ug/mL (10.0-40.0)
[2018-04-25 11:35] LABS: Lamotrigine (Lamictal) Level 13.1 ug/mL (2.0-20.0); Trileptal-Oxcarbazepine 10 ug/mL (10-35)
== END ==
PROVIDERS: Family Provider Family Medicine Geriatric Medicine; PCP Family Medicine Geriatric Medicine; Referring Provider Psychiatry & Neurology Neurology; Visit Provider Psychiatry & Neurology Neurology
DX: E87.1 Hypo-osmolality and hyponatremia (principal); G20 Parkinson's disease; G40.019 Localization-related (focal) (partial) idiopathic epilepsy and epileptic syndromes with seizures of localized onset, intractable, without status epilepticus
CPT/HCPCS: 36415; 80053; 80177; 82542; 85025

== ENCOUNTER → 2018-09-01 14:52 | Outpatient (CLI) | payer MEDICARE, SELFPAY ==
[2018-09-01 17:24] LABS: Absolute Lymphocyte Count 1.57 X10^3/ul (0.83-4.51); Absolute Neutrophil Count 4.1 X10^3/uL (2.0-7.7); Basophil# 0.04 X10^3/uL; Basophil% 0.6 % (0-1); Eosinophil# 0.23 X10^3/uL; Eosinophils% 3.4 % (0-5); Hematocrit 46.7 % (40-54); Hemoglobin 15.1 g/dl (13.0-16.5); Lymphocyte # 1.57 X10^3/ul (4.0); Mean Corp Hgb Conc 32.3 g/gl (32-36); Mean Corpuscular Hgb 30.2 pg (27.0-32.0); Mean Corpuscular Volume 93.4 fL (80-94); Mean Platelet Vol. 10.7 fl (6.2-12.0); Monocyte# 0.86 X10^3/uL; Monocyte% 12.6 % (0-10); Neutrophil # 4.12 X10^3/uL (2.7-7.7); Neutrophil % 60.3 % (47-70); Platelet Count 299 K/mm3 (150-450); RBC Distribution Width CV 13.5 % (11.6-14.6); RBC Distribution Width SD 44.9 fl (35.1-43.9); White Blood Count 6.8 K/mm3 (4.4-11.0)
[2018-09-01 17:26] LABS: POSITIVE COUNT NO; POSITIVE DIFFERENTIAL NO; POSITIVE MORPHOLOGY NO
[2018-09-01 17:38] LABS: Vitamin D,25 Hydroxy 17.7 ng/mL (29.95-100.01)
[2018-09-01 17:43] LABS: AST(SGOT) 22 U/L (15-37); Alanine Aminotransfer ALT/SGPT 23 U/L (16-61); Albumin, Serum 4.1 g/dL (3.2-5.0); Alkaline Phosphatase 85 U/L (45-117); Anion Gap 8 (5-15); BUN 20 mg/dL (7-18); BUN/Creat Ratio 16.5 RATIO (10-20); Calcium,Total 9.4 mg/dL (8.5-10.1); Chloride 99 mmol/L (98-107); Creatinine, Serum 1.21 mg/dL (0.70-1.30); EST Glomerular Filtration Rate 62 mL/min (>60); Est Glom Filt Rate - Afr Amer 75 mL/min (>60); Glucose 55 mg/dL (74-106); Potassium 4.1 mmol/L (3.5-5.1); Protein, Total 8.1 g/dL (6.4-8.2); Sodium Level 138 mmol/L (136-145); Thyroid Stim Hormone (TSH) 1.43 uIU/mL (0.358-3.74)
== END ==
PROVIDERS: Family Provider Family Medicine Geriatric Medicine; PCP Family Medicine Geriatric Medicine; Visit Provider Family Medicine Geriatric Medicine
DX: E55.9 Vitamin D deficiency, unspecified (principal); I10 Essential (primary) hypertension
CPT/HCPCS: 36415; 80053; 82306; 84443; 85025

== ENCOUNTER → 2018-11-12 13:18 | Outpatient (CLI) | payer MEDICARE, SELFPAY ==
--- NOTE | 2018-11-12 13:35 | MRI_ITS ---
STUDY: MRI BRAIN WITHOUT CONTRAST REASON FOR EXAM: Male, 73 years old. Increased left-sided weakness. History of tumor removal 1991 and subdural hematoma May 13, 2016. Craniotomy/flap December 11, 2017. TECHNIQUE: Standardized multiplanar fat and water weighted pulse sequences were obtained. COMPARISON: CT brain April 02, 2018 and March 07, 2016 FINDINGS: There is moderate cerebral atrophy with widening of the extra-axial spaces and ventricular dilatation. There are multiple white matter hyperintensities, distributed throughout the deep white matter tracts of the cerebral hemispheres, consistent with moderate chronic white matter ischemic changes. Possible small focus of restricted diffusion within the body of the caudate on the right. Encephalomalacia right cerebral hemisphere. Normal bilateral basal ganglia. Normal thalami. There is no extra-axial fluid accumulation. Normal flow voids within the major intracranial circulation suggesting patency by spin echo criteria. Normal sella turcica, pituitary gland, infundibular stalk, optic chiasm and hypothalamus. Normal tectal plate and pineal gland. Normal midbrain, annie and medulla. Normal cerebellum. Normal basal cisterns. Normal bilateral temporal bones. Normal bilateral internal auditory canals. No demonstrated orbital abnormality, within the constraints of a routine brain study. Normal visualized paranasal sinuses. Normal calvarium and skull base. Subcutaneous hematoma right scalp. Normal visualized upper cervical spine. Right craniotomy and mesh. MRI/Brain without Contrast IMPRESSION: Right craniotomy/mass with subjacent mild encephalomalacia. Possible minute subacute infarct right caudate. Electronically Signed: Jim Cervantes MD at 16:16 EDT , Service support ,
== END ==
PROVIDERS: Family Provider Family Medicine Geriatric Medicine; PCP Family Medicine Geriatric Medicine; Referring Provider Psychiatry & Neurology Neurology; Visit Provider Psychiatry & Neurology Neurology
DX: G81.04 Flaccid hemiplegia affecting left nondominant side (principal)
CPT/HCPCS: 70551

== ENCOUNTER → 2018-11-24 | Outpatient (CLI) | payer MEDICARE, SELFPAY ==
[2018-11-24 12:52] LABS: Cholesterol 219 mg/dL (200); High Density Lipoprotein 48 mg/dL; Triglycerides 47 mg/dL; Very Low Density Lipoprotein 9 mg/dL (5-40)
== END | disposition home or self-care (01) ==
LOC: MTLAB 10:44
PROVIDERS: Family Provider Family Medicine Geriatric Medicine; PCP Family Medicine Geriatric Medicine; Referring Provider Psychiatry & Neurology Neurology; Visit Provider Psychiatry & Neurology Neurology
DX: G40.019 Localization-related (focal) (partial) idiopathic epilepsy and epileptic syndromes with seizures of localized onset, intractable, without status epilepticus (principal); G81.04 Flaccid hemiplegia affecting left nondominant side; Z86.73 Personal history of transient ischemic attack (TIA), and cerebral infarction without residual deficits; R27.0 Ataxia, unspecified
CPT/HCPCS: 36415; 80061; 83090

== ENCOUNTER 2018-12-08 15:00 | Outpatient (RCR) | payer MEDICARE, SELFPAY ==
--- NOTE | 2018-05-01 17:01 | HP.PTEVAL_ITS ---
Patient's Visit Information JENNIFER CORONA is a 73 year old M referred to Physical Therapy by Shivam Arroyo MD with a diagnosis of PD. Date of Evaluation: 05/01/18 Physical Therapist: Jaylon Hurtado DPT, OC - Visit Plan Frequency: 2x /Week Duration: 4-6 Weeks Plan: 2x/week for 4 weeks to work on active sitting posture with hands on knees, knees apart, symmetrical frontal plane and not using back of chair. - Subjective Subjective: This is a re-evaluation for continuation of previous treatment after patient has been on a break due to medication change, previous informaation still applies.Off of one sezure pill whcih was casuing hyponatremia and notices anjum the is more cognitive adn not as tired. Increase in cinemet for PD and that has helped. Pt feels better many days but has bad mornings. has to have him stay hydrated. Initial fall from ladder 2 yrs ago suffering subdural hematoma. Getting back into ex at home trying to stand and bands for UE adn some bands for legs and stretching in the morning. Hads stopped doing that with the hyponatremia. Doing bicycle at home(stationary). Sleeping good. Wierd dreams. Spends some days in the wheelchair. also in and out of rocker. Trasnfers into adn out of rocker with much assist from . Eats in chair. Sits up from bed and lies down himself. Sleeps on back and sometimes side. Rolls I. Transfer is trying to stand but still pushes posterior. - Objective Sits leaning L and passive sitting with post pelvic tilt, does not correct with VC or visual cues, difficult to scoot. Can wipe drool but tends to do it. All UE and LE movements are small and slow. Seems hard to understand what i am asking cognitively., L UE hangs down to side and tries to correct with wrist instead of whole arm. Knees stay adducted in chair and tends to keep feet away from body and knees extended. About 90 degrees of active shoulder movement L >R, poor motor control when asked to touch something in front of him, takes long minute to do it. Max A needed to get to stand, unable to straghten knees adn hips, Leans to the left onto therapist and unable to correct, Dependent stand for 20 seconds then crashed dwon into chair. 10 minutes of VC and TC needed to get to a neutral sitting position of frontal plane, not leaning on back of chair, hands on knees and knees apart. Has Full PROM in knees and hips functionally but slow to move and does not yet understand how to find neutral active sitting position. Is a passive sitter. - Goals Goal 1:: Sit in chair in neutral posture without using back of chair 10 minutes without needing more than one cue. Goal Time Frame: 2-4 Weeks Goal 2:: Find neutral sitting posture without cues. Goal Time Frame: 2-4 Weeks Goal 3:: Hold good activie sitting posture with 2x10 UE movement reps without losing posture. Goal Time Frame: 4-6 Weeks - Rehabilitation Potential Physical Therapy Diagnosis: Parkinsons disease with history of SDH Rehabilitation Potential: Questionable - Anticipated Interventions Patient/Client Instruction: Educate patient on: Condition, Plan of Care For the Purpose of:: To increase tolerance to activity/condition/position Therapeutic Exercise to Include: Strength training, Postural training, Gait and locomotor training, Active ROM For the Purpose of:: To improve muscle performance and motor function, To improve ability of physical actions for home/community/work/leisure, To improve health of tissue Thank you for the opportunity to evaluate your patient. For Medicare and Medicare HMO plans, please review the plan of care and approve it. It will need to be FAXED BACK to us at [phone] for Medicare purposes. Please let me know if there are questions or concerns regarding this plan of care. Physician Signature: Date:
--- NOTE | 2018-05-01 18:36 | HP.OTEVAL ---
Patient's Visit Information JENNIFER CORONA is a 73 year old M, referred to Occupational Therapy by Shivam Arroyo MD, with a diagnosis of balance and gait/Parkinsons. Date of Evaluation: 05/01/18 Occupational Therapist: Elizabeth Krause - Subjective Subjective: Pt seen for occupational therapy evaluation for decline with strength and activity tolerance. Spouse states pt has demonstrated decreased self feeding skills since last hospitalization. Pt recently had a medical decline due to medications that have made him weaker than his PLOF. Spouse states he always requires increased assist with BADLs and to transfer, but he was able to feed himself and now is unable to feed himself. Pt uses a w/c for transportation and spouse has to assist with all stand pivot transfers. - Objective Objective/Observation: pt demo decreased BUE strength - ROM Shoulder: R AROM 135' PROM 145' L AROM 75' PROM 110' Elbow: WFL Forearm: WFL Wrist: WFL MP: WFL PIP: WFL DIP: WFL - Strength Head Of [employer]ights: R 30#, L 5# Lateral Pinch: R 8#, L 3# Strength Comments: R UE 3+/5, L UE 3/5 - Edema Other: No edema noted - Sensation Sensation Comments: Numbness and tingling L hand not new - Quick DASH-Disab of Arm,Shoulder& Hand Quick DASH Score: 65.0000 - Goals Goal:: Pt will progress w/ generalized BUE strength 4/5 to assist with functional transfers and ADL tasks. Pt will progress with R UE child and family therapist strength by 10# and L UE child and family therapist strength 25# to assist with self feeding tasks. Goal:: Pt will demo increased fine motor coordination skills to stab food with fork and get to mouth w/o spillage and get coffee cup to mouth without spillage by d/c from OT services Goal:: Pt will be able to complete self feeding skills at set up level using AE as needed by d/c from OT services. Goal:: Pt/spouse will be educated on BUE HEP with good understanding and demo 100%x. - Rehabilitation General Assessment: Pt demo decreased activity tolerance, BUE strength and independence with self feeding tasks all indicating a need for skilled OT interventions to increase activity tolerance for BADLs, increase coordination skills to assist with self feeding and BUE strength to assist w/ BADLs and functional transfers. Rehabilitation Potential: Fair - Anticipated Interventions Anticipated Interventions: A/AAROM/PROM, Strengthening, Modalities, Joint Protection/Energy Conservation, Fine Motor Coord/Andrey, Neuro Reeducation, ADL Training, Education re assistive Equipment, Caregiver Training, Home Program - Visit Plan Frequency: 2x /Week Duration: 4-6 Weeks General Plan: increase activity tolerance for BADLs, increase coordination skills to assist with self feeding and BUE strength to assist w/ BADLs and functional transfers. TEXT: Thank you for the opportunity to evaluate your patient. For Medicare and Medicare HMO plans, please review the plan of care and approve it. It will need to be FAXED BACK to us at [phone] for Medicare purposes. Please let me know if there are questions or concerns regarding this plan of care. Physician Signature: Date:
--- NOTE | 2018-06-10 16:17 | OTREVAL_ITS ---
Shivam Arroyo MD, It has been my pleasure to treat JENNIFER CORONA over the last 11 visits for balance and gait/Parkinsons. Please see the progress note below for an update on the occupational therapy plan of care! Subjective: Pt arrived with spouse after PT. Pt states he is feeling good and no pain today. Objective/Function: increase BUE strength and indep w/ self feeding skills with increased coordination Plan Frequency: 2x /Week Duration: 4-6 Weeks Plan: cont w/ same goals Goals - Goals Goal:: Pt will progress w/ generalized BUE strength 4/5 to assist with fun ctional transfers and ADL tasks. Pt will progress with R UE benefits technician strength by 10# and L UE benefits technician strength 25# to assist with self feeding tasks. Goal:: Pt will demo increased fine motor coordination skills to stab food with fork and get to mouth w/o spillage and get coffee cup to mouth without spillage by d/c from OT services Goal:: Pt will be able to complete self feeding skills at set up level using AE as needed by d/c from OT services. Goal:: Pt/spouse will be educated on BUE HEP with good understanding and demo 100%x. Anticipated Interventions Anticipated Interventions: A/AAROM/PROM, Strengthening, Modalities, Joint Protection/Energy Conservation, Fine Motor Coord/Andrey, Neuro Reeducation, ADL Training, Education re assistive Equipment, Caregiver Training, Home Program Please do not hesitate to contact me at [phone] by phone or if you have questions or concerns regarding this new plan of care! Sincerely, Elizabeth Krause
--- NOTE | 2018-06-13 16:13 | HP.PTREVAL ---
Shivam Arroyo MD, It has been my pleasure to treat JENNIFER CORONA over the last 12 visits for PD. Please see the progress note below for an update on the physical therapy plan of care! Subjective: sAWdR. Bekah AND is happy with how Ed is appearing, better voice adn demeanor and movements. More alert. No medicine changes over the last month. No Bavis f/u til May. noticing better posture, sometimes leans to the right. Sitting up straighter. Transfers better in evening and into bed can stand and directs him into bed. Not as good in morning. Better transferring to R. Working on sitting at home. Sitting up tall eating without using back of chair. Minor seizures continue 4 in lst month. Objective/Function: Trasnfer to mat Mod assist and unable to get to standing, stays stooped never getting hips under spine adn tries to move feet. Sits I and finds approp position except for L hand, sits 10 minutes easily. 10 reps ball touches and catch with hands in sitting easily and without LOB. Transfer to and fro supine to sit I, knees stay bent. Unable to lie flat due to back pain. SIGNIFICANT IMPROVEMENT WITH SITTING POSTURE AND GOALS. Plan Plan: 2x/week x6-8 per new order. PLease focus on bed hip strength and progression to HEP, core strength, stretching front of hips with gradual supine lie and sit to full stand transfer. Goals Goal 1:: Sit in chair in neutral posture without using back of chair 10 minutes without needing more than one cue. Goal Time Frame: 2-4 Weeks Goal Progress: Goal Met Goal 2:: Find neutral sitting posture without cues. Goal Time Frame: 2-4 Weeks Goal Progress: Goal Met Goal 3:: Hold good activie sitting posture with 2x10 UE movement reps without losing posture. Goal Time Frame: 4-6 Weeks Goal Progress: Goal Met Goal 4:: lIE FLAT SUPINE WITHOUT BACK PAIN Goal Time Frame: 6-8 Weeks Goal Progress: new goal Goal 5:: Stand straight up min A for 30 seconds. Goal Time Frame: 6-8 Weeks Goal Progress: new goal Goal 6:: Maintain ability to active sit for 10 mintues I Goal Time Frame: 6-8 Weeks Goal Progress: NEW GOAL Anticipated Interventions Patient/Client Instruction: Educate patient on: Condition, Plan of Care For the Purpose of:: To increase tolerance to activity/condition/position Therapeutic Exercise to Include: Strength training, Postural training, Gait and locomotor training, Active ROM For the Purpose of:: To improve muscle performance and motor function, To improve ability of physical actions for home/community/work/leisure, To improve health of tissue Please do not hesitate to contact me at [phone] by phone or if you have questions or concerns regarding this new plan of care! Sincerely, Jaylon Hurtado, DPT, OCS, CSCS
--- NOTE | 2018-07-18 15:40 | HP.PTREVAL ---
Shivam Arroyo MD, It has been my pleasure to treat JENNIFER CORONA over the last 20 visits for PD. Please see the progress note below for an update on the physical therapy plan of care! Subjective: I can sort of rollover now at home and that is better. Sitting without leaning on chair at home. says he has some very tired tranfers but otherwise doing better. Says he needs very lttle help with transfer. Objective/Function: Put WC leg supports back I easily today.Lies flat on back with L knee only slightly bent to -8 degrees and rest of body flat. Sits in good seated postiion with good posture without VC today. Sit to stand with Min A today but is always in a hurry to move butt and feet o next place. Pt still tends to keep weight shifted posterior and needs multiple VC and TC to keep nose out over toes today but did get to a 80% good popsition for short term today, when he tries to do something in standing, he shifts back to dysfunctional posterior weighted position and needs max A to stand. He rolls supine to prone I except for L UE gets stuck under hime, needs mod A to get it out, tends to extend L UE instead of use it to help him. Unable to get to quadruped today. Plan Plan: 2x/week for 4 weeks ... Please continue to work on table rolling and quadruped for trunk and add sit to stand and attempted stadning balance back into program as able. Attempt walker stand to get weight shifted forward. Goals Goal 1:: Sit to stand SBA consistently at walker Goal Time Frame: 4-6 Weeks Goal Progress: NEW GOAL Goal 2:: Find neutral sitting posture without cues. Goal Time Frame: 2-4 Weeks Goal Progress: Goal Met Goal 3:: Hold good activie sitting posture with 2x10 UE movement reps without losing posture. Goal Time Frame: 4-6 Weeks Goal Progress: Goal Met Goal 4:: lIE FLAT SUPINE WITHOUT BACK PAIN Goal Time Frame: 6-8 Weeks Goal Progress: Goal Met Goal 5:: Stand straight up min A for 30 seconds. Goal Time Frame: 6-8 Weeks Goal Progress: Progressing Goal 6:: Maintain ability to active sit for 10 mintues I Goal Time Frame: 6-8 Weeks Goal Progress: Goal Met Anticipated Interventions Patient/Client Instruction: Educate patient on: Condition, Plan of Care For the Purpose of:: To increase tolerance to activity/condition/position Therapeutic Exercise to Include: Strength training, Postural training, Gait and locomotor training, Active ROM For the Purpose of:: To improve muscle performance and motor function, To improve ability of physical actions for home/community/work/leisure, To improve health of tissue Please do not hesitate to contact me at [phone] by phone or if you have questions or concerns regarding this new plan of care! Sincerely, Jaylon Hurtado, DPT, OCS, CSCS
--- NOTE | 2018-07-23 11:54 | HP.OTREVAL ---
Shivam Arroyo MD, It has been my pleasure to treat JENNIFER CORONA over the last 21 visits for balance and gait/Parkinsons. Please see the progress note below for an update on the occupational therapy plan of care! Subjective: Pt arrived with spouse, spouse stating they had to have a big talk at home today before coming in. Stated glad they don't have any appointments for the next two days due to the cold weather. Objective/Function: Pt demo progress with all goals at this time. Pt has progressed with R hand sports athletic trainer strength from 53# to 60# meeting his R hand sports athletic trainer strength goal. Pt huynh progressed with L hand sports athletic trainer strength froj 10# to 12#. Pt has progressed with R UE generalized MMT to 4+/5 and from 4-/5 and L UE strength shoulder flexion 4-/5 and bicep/tricep 4/5. Pt/spouse states he is doing well with self feeding tasks. He is able to eat a meal independently on his own with set up and extra time needed. He is now using a regular cup to drink coffee from. Pt has been eduactd on AT and Comp Strategies to assist with BADLs with good understanding. Pt would benefit from direct OT 1-2x/wk for 2 wks to educate on appropriate BUE HEP with visuals provided and increase L sports athletic trainer strength. Plan Frequency: 1-2x /Week Duration: 2 Weeks Plan: see re-eval for all details Goals - Goals Goal:: Pt will progress w/ generalized BUE strength 4/5 to assist with functional transfers and ADL tasks. Pt will progress with L UE sports athletic trainer strength to 15# to assist with self feeding tasks. Goal:: Pt will demo increased fine motor coordination skills to stab food with fork and get to mouth w/o spillage and get coffee cup to mouth without spillage by d/c from OT services- Goal Met Goal:: Pt will be able to complete self feeding skills at set up level using AE as needed by d/c from OT services. - Goal Met Goal:: Pt/spouse will be educated on BUE HEP with good understanding and demo 100%x. Anticipated Interventions Anticipated Interventions: A/AAROM/PROM, Strengthening, Fine Motor Coord/Andrey, Neuro Reeducation, Caregiver Training, Home Program Please do not hesitate to contact me at [phone] by phone or if you have questions or concerns regarding this new plan of care! Sincerely, Elizabeth Krause
--- NOTE | 2018-08-06 10:36 | HP.OTDCSUM ---
HP - OT D/C Summary It has been my pleasure to treat JENNIFER CORONA under orders from Shivam Arroyo MD, for the diagnosis of balance and gait/Parkinsons for a total of 24 visit(s). Please see the following information for a summary of their discharge status. - Objective Objective/Function: L esters and emulsifiers supervisor strength 20# - Goals Patient Goals: Regain Strength, Decrease Swelling/Stiffness, Improve Fine Motor Skills, Use Hand/Wrist/Arm Normally Again, Be More Independent in ADLS, Improve Transfer Skills, Resume Hobbies Goal:: Pt will progress w/ generalized BUE strength 4/5 to assist with functional transfers and ADL tasks. Pt will progress with L UE esters and emulsifiers supervisor strength to 15# to assist with self feeding tasks. Goal:: Pt will demo increased fine motor coordination skills to stab food with fork and get to mouth w/o spillage and get coffee cup to mouth without spillage by d/c from OT services- Goal Met Goal:: Pt will be able to complete self feeding skills at set up level using AE as needed by d/c from OT services. - Goal Met Goal:: Pt/spouse will be educated on BUE HEP with good understanding and demo 100%x. - Plan Plan: d/c OT services this date. - D/C Information Discharge Comments: Pt has made great progress with all OT goals. Pt independently feeding self and has been educated on adaptive techniques and strategies to assist with self feeding as needed. Pt has progressed with BUE strength and L esters and emulsifiers supervisor strength has progressed to 20# as of this date vs 12# 2 wks ago. Pt has progressed with R UE generalized strength MMT to 4+/5 from 4-/5 and L UE strength shoulder flexion 4-/5 and bicep/tricep strength 4/5. Pt/spouse has been educated on theraband HEP, fine motor esters and emulsifiers supervisor strength HEP, and gym equipment HEP all with good understanding and demo 100%x. Pt has made great progress with OT goals. Pt no longer requires skilled OT services at this time. Pt d/c from OT. If there are questions or concerns regarding this patient's occupational therapy, please fell free to call me at [phone]. Thank you for the referral of this patient. Sincerely, Elizabeth Krause
--- NOTE | 2018-08-26 16:02 | HP.PTREVAL ---
Shivam Arroyo MD, It has been my pleasure to treat JENNIFER CORONA over the last 29 visits for PD. Please see the progress note below for an update on the physical therapy plan of care! Subjective: Getting better. Standing and walking in bars easier. says he is transferring much easier except when he is really tired. ()% of time is transfers are pretty good. Stand for short period with each standing transfer. Stands at bar for couple minutes. Done with OT but doing UE exercises I. Doing ankle weight and TB LE exercises in sitting at home regualrly. No meds changes lately. To doctor in October. Objective/Function: Sit to stand without assist but only stood hunched over for 5 seconds x 2. After that needed 4 attempts to stand and Min A and never really got all the way up. Placed walker in front of hia nd Sit to stand with CGA, stood at walker with VC for FW weight shift and R weight shift for 3 minutes total needing assist every 15 seconds and standing without assist for 15 at a time. Stand to sit with VC I and safely. Tends to look at floor and kyphotic T/S(still lying on back at home as an exercise. Sits edge of chair easpily in activie sit. OVERALL PROGRESSING NICELY SINCE MEDS STABILIZED. SLOW PROGRESS TOWARD GOALS. APPROPRIATE TO CONTINUE TOWARD BALANCE AND GAIT. FAIR PROGNOSIS TO NEW GOALS Plan Plan: 2x/week one hourvisits for 1. stand at walker and maintain balance with less support, Walk with walker as able. May do table core strengthening. Emphasize gluts as he is weak here and does not want to use them. Goals Goal 1:: Sit to stand SBA consistently at walker Goal Time Frame: 4-6 Weeks Goal Progress: Goal Met Goal 2:: Find neutral sitting posture without cues. Goal Time Frame: 2-4 Weeks Goal Progress: Goal Met Goal 3:: Sit to stand at walker and stand 2 mintues looking straight ahead without assist or cues. Goal Time Frame: 6-8 Weeks Goal Progress: NEW GOAL Goal 4:: Walk 5 feet with wh walker with Min A consistently Goal Time Frame: 6-8 Weeks Goal Progress: NEW GOAL Goal 5:: Stand straight up min A for 30 seconds. Goal Time Frame: 6-8 Weeks Goal Progress: not strraight btu can sta Goal 6:: Maintain ability to active sit for 10 mintues I Goal Time Frame: 6-8 Weeks Goal Progress: Goal Met Anticipated Interventions Patient/Client Instruction: Educate patient on: Condition, Plan of Care For the Purpose of:: To increase tolerance to activity/condition/position Therapeutic Exercise to Include: Strength training, Postural training, Gait and locomotor training, Active ROM For the Purpose of:: To improve muscle performance and motor function, To improve ability of physical actions for home/community/work/leisure, To improve health of tissue Please do not hesitate to contact me at [phone] by phone or if you have questions or concerns regarding this new plan of care! Sincerely, Jaylon Hurtado, DPT, OCS, CSCS
--- NOTE | 2018-09-26 14:21 | HP.PTREVAL ---
Shivam Arroyo MD, It has been my pleasure to treat JENNIFER CORONA over the last 37 visits for PD. Please see the progress note below for an update on the physical therapy plan of care! Subjective: Tried rolling over and got stuck on side, couldn't get to belly. Walked 45 feet with 3 rests today in PT. Standing at home with walker a few mintues. No pain worth mentioning. Standing more often for trasnfers. Objective/Function: able to lie flat on back with just slight back pain on table, some slight L knee flexion in this position. Patient sits in good position with some kyphosis in T/S and forward head but symmetrical frontal plane. Trasnfer supine to sit and to supine I today without assist. Rolling to side I B but onto tummy needs VC for L UE and LE as it tends to get in the way, hard time WB through L UE and motor planning to roll is not happening today. Sit to stand requires slight assist to get butt off chair/FW weight shift. Stand without wh walker 30 seconds today only needing VC for keeping weight forward. Stand at wh walker without assist 150 seconds today wihtout hands on assist but needs cues to reach before posterior weight shift to sit, Seems tired today rechecking after clinic work. Unable to ambulate 5 feet without mod A for FW weight shift with me today but did 45 feet of walking with Min A with [employer] prior to recheck. OVERALL NOW ABLE TO WALK WITH WH WALKER WHICH IS AN IMPROVEMENT, I QUESTION FURTHER PROGNOSIS DUE TO HIS INABIALITY TO KEEP WEIGHT SHIFTED FW TODAY WITH GAIT BUT THIS MAY BE DUE TO FATIGUE. APPROPRIATE TO COTNINUE WORKING WITH HIM UNTIL PROGRESS STAGNATES WHICH HAS NOT HAPPENED YET. Plan Plan: 2x/week for 4 weeks to work on gait with decreasing assist and FW weight shift with gait to avoid BW LOB. Goals Goal 1:: Sit to stand SBA consistently at walker Goal Time Frame: 4-6 Weeks Goal Progress: Goal Met Goal 2:: Find neutral sitting posture without cues. Goal Time Frame: 2-4 Weeks Goal Progress: Goal Met Goal 3:: Sit to stand at walker and stand 2 mintues looking straight ahead without assist or cues. Goal Time Frame: 6-8 Weeks Goal Progress: Goal Met Goal 4:: Walk 5 feet with wh walker with Min A consistently Goal Time Frame: 6-8 Weeks Goal Progress: Goal Met Goal 5:: Stand straight up min A for 30 seconds. Goal Time Frame: 6-8 Weeks Goal Progress: 30 sec hunched a little. Goal 6:: Walk with wh walker SBA 10 feet with wh walker consistently without BW LOB. Goal Time Frame: 6-8 Weeks Goal Progress: NEW GOAL Anticipated Interventions Patient/Client Instruction: Educate patient on: Condition, Plan of Care For the Purpose of:: To increase tolerance to activity/condition/position Therapeutic Exercise to Include: Strength training, Postural training, Gait and locomotor training, Active ROM For the Purpose of:: To improve muscle performance and motor function, To improve ability of physical actions for home/community/work/leisure, To improve health of tissue Please do not hesitate to contact me at [phone] by phone or if you have questions or concerns regarding this new plan of care! Sincerely, Jaylon Hurtado, DPT, OCS, CSCS
--- NOTE | 2018-10-24 14:37 | HP.PTREVAL ---
Shivam Arroyo MD, It has been my pleasure to treat JENNIFER CORONA over the last 45 visits for PD. Please see the progress note below for an update on the physical therapy plan of care! Subjective: Episode of dehydration earlier this week which made it a rough week as he feels weaker and is not able to do as much. Getting back to normal. Had a seizure earlier today and having them everycouple weeks described as twitching. Sees [facility] 11/05/18. Prior to this week was standing at bar for ex at home Objective/Function: Sit to stand I, stand at walker 2 minutes with only one VC for FW wweight shift. Stand 60 seconds 1x without UE on walker and only one VC for correcting posterior weight shift. MUCH BETTER STANDING TODAY. Walks with wh walker (after initial VC) with equal step lengths of approx 3/4 foot length and no BW LOB for 8 feet today. This is the furthest he has walked during a recheck in therapy for me with LOB BW. still hunched over and knees flexed appropx 25 degrees and looking at floor but better anti gravity control. Seems weaker with ambulation this week than earlier in the month likely due to his episode earlier this week. OVERALL A POSITIVE RECHECK TODAY WITH MUCH IMPROVED STAND BALANCE AND NOT LOSING BALANCE BW NEARLY OFTEN AAND SOME SELF CORRECTIVE REACTIONS TODAY WITHOTU VC. IMPROVED ADN IS SOMETHING TO BUILD ON. APPROPRIATE TO CONTINUE TOWARD NEW GOALS WITH FIAR TO QUESTIONABLE PRGNOSIS BASED ON HIS FRAGILE STATE WITH COMORBIDITIES AND SEIZURES ADN HOW THEY EFFECT HIS PHYSICAL ABILITIES. standing straight up goal likely not appropriate as he always hunches and has not shown the ability to adapt and get better at this position. Plan Plan: 2X/WEEK FOR 4 WEEKS. Please work on walking distance and consistency with less hand on assist and decreasing VC for FW weight shift. Work on stadning balance and toward standing LE exercises safely without LOB BW. Goals Goal 1:: Sit to stand SBA consistently at walker Goal Time Frame: 4-6 Weeks Goal Progress: Goal Met Goal 2:: Find neutral sitting posture without cues. Goal Time Frame: 2-4 Weeks Goal Progress: Goal Met Goal 3:: Maintain full PROM spine to lie flat withotu pain and do table transitions sit to supine, roll and to sit again without assist. Goal Time Frame: 6-8 Weeks Goal Progress: NEW GOAL Goal 4:: stand without BW LOB to appropriately do LE ex of marching and reaching without LOB BW Goal Time Frame: 6-8 Weeks Goal Progress: NEW GOAL Goal 5:: Stand straight up min A for 30 seconds. Goal Time Frame: 6-8 Weeks Goal Progress: 60 sec,still hunched Goal 6:: Walk with wh walker SBA 10 feet with wh walker consistently without BW LOB. Goal Time Frame: 6-8 Weeks Goal Progress: Progressing, approp. Anticipated Interventions Patient/Client Instruction: Educate patient on: Condition, Plan of Care For the Purpose of:: To increase tolerance to activity/condition/position Therapeutic Exercise to Include: Strength training, Postural training, Gait and locomotor training, Active ROM For the Purpose of:: To improve muscle performance and motor function, To improve ability of physical actions for home/community/work/leisure, To improve health of tissue Please do not hesitate to contact me at [phone] by phone or if you have questions or concerns regarding this new plan of care! Sincerely, Jaylon Hurtado, DPT, OCS, CSCS
--- NOTE | 2018-11-21 16:25 | HP.PTREVAL_ITS ---
Shivam Arroyo MD, It has been my pleasure to treat JENNIFER CORONA over the last 47 visits for PD. Please see the progress note below for an update on the physical therapy plan of care! Subjective: Had cerebral infarct in addition to his Parkinsons and seizures.Brought new script for 8 weeks of PT due to L hemiparesisand dysarthria. Had MRI adn saw [facility] lately. Has been standing at [employer] railing at home but no walking. Been continuing leg stretches and weights at home each morning. No pain. transferring with assist from and it is hard. Grabs hand and helps him stand . Still lies flat on back as exercise. Wants to stand and walk, wants him to trasnfer with less help from her. Objective/Function: Doctor has him on aspirin now but otherwise no changes to meds. Pt is happy and ready for PT and has script for speecha dn OT also which will be scheduled. L arm and leg definitely ignored during posture adn movement but has some function despite weakness adn poor motor control of both. About 80 degrees L UE elevation and obviously lacks feeling in L UE as he cannot feel if his hand is on his leg. He sits with slouched sacral sit posture and hunched in spine, his L leg extends at knee adn L hand is ignored, but he can reposition it with VC to his knee.Can place both feet on WC foot holds I and spread knees but tends to let left leg hang off and keep knees glued together. Sit to stand with R UE on chair Min A. Stands at walker with L platform(placed by PT) with supervision today and VC to shift weight forward whcih he does today with just the VC after a couple seconds delay. Can stand at platform walker with SBA for 5-10 seconds at a time, weight tends posterior until VC. Needs UE on walker to stand as he loses balance BW without UE. Attempting to push walker forwards causes posterior LOB. Min A to take 2 steps today(small about 2 inches). Pivot transfer to chair from table with mod A for balance as patient tends to lean BW to move feet obivious to LOB. sits in chair and gets to supine I and back up I. able to lie flzat except for L knee stays slightly bent due to back pain with neutral hip extension. In standing, pt tends to hunch over and look at floor. Able to wheel chair slowly short distances with R UE(tends to not at home as their small house doesn't allow it.). OVERALL MOBILITY SEEMS SIMILAR TO LAST POC. DOES SHIFT WEIGHT SLIGHTLY BETTER FORWARD WITH VC. APPROPRIATE TO CONTINUE THERAPY PER ORDER FOR MOBILITY AND BALANCE AND TRASNFERS WITH QUE STIONABLE PROGNOSIS. Plan Plan: 2X/WEEK FOR 4-8 WEEK PER ORDER FOR : 1. POSTURE(GIVE VC AND HAVE HIM CORRECT HIMSELF. 2. tRASNFER TO STAND AND STAND BALANCE AT L PLATFORM WALKER. 3. GAIT WITH L PLATFORM WALKER ABLE. 4. FOCUS ON TRASNFERRING TO BED ETC FROM STANDING POSITION TO TAKE STRESS OFF WIFES BACK. 5. Work on increasing distance in wc self mobility. Goals Goal 1:: Sit to stand SBA consistently at walker Goal Time Frame: 4-6 Weeks Goal Progress: Goal Met Goal 2:: Find neutral sitting posture without cues. Goal Time Frame: 2-4 Weeks Goal Progress: Goal Met Goal 3:: Find neutral sitting posture particularly with L UE/LE without cues consistently. Goal Time Frame: 6-8 Weeks Goal Progress: New goal Goal 4:: stand without BW LOB to appropriately do LE ex of marching and reaching without LOB BW Goal Time Frame: 6-8 Weeks Goal Progress: appropriate Goal 5:: Stand straight up min A for 30 seconds. Goal Time Frame: 6-8 Weeks Goal Progress: appropriate Goal 6:: Walk with wh walker SBA 10 feet with wh walker consistently without BW LOB. Goal Time Frame: 6-8 Weeks Goal Progress: appropriate Anticipated Interventions Patient/Client Instruction: Educate patient on: Condition, Plan of Care For the Purpose of:: To increase tolerance to activity/condition/position Therapeutic Exercise to Include: Strength training, Postural training, Gait and locomotor training, Active ROM For the Purpose of:: To improve muscle performance and motor function, To improve ability of physical actions for home/community/work/leisure, To improve health of tissue Please do not hesitate to contact me at [phone] by phone or if you have questions or concerns regarding this new plan of care! Sincerely, Jaylon Hurtado, DPT, OCS, CSCS
--- NOTE | 2018-11-28 11:00 | HP.OTREVAL ---
Shivam Arroyo MD, It has been my pleasure to treat JENNIFER CORONA over the last 25 visits for balance and gait/Parkinsons. Please see the progress note below for an update on the occupational therapy plan of care! Subjective: Pt states he was doing well in PT and started to lose vocational evaluator on walker and difficulty walking- pt was seen by edwino 11/05/18 and was dx with cerebral infarction and refered to OT 11/19/18- pt and noticed a decline in his UB strength limiting his mobility. Objective/Function: right vocational evaluator strength 50# left vocational evaluator strength 5#. right lateral pinch 7#. left lateral pinch 0#. pt demo with weak left UE MMT 3-/5 Plan Frequency: 1-2x /Week Duration: 4 Weeks Plan: increase pts functional strength Goals - Goals Goal:: Pt will progress w/ generalized BUE strength 4/5 to assist with functional transfers and ADL tasks. Pt will progress with L UE vocational evaluator strength to 15# to assist with self feeding tasks. Goal:: Pt will demo increased fine motor coordination skills to stab food with fork and get to mouth w/o spillage and get coffee cup to mouth without spillage by d/c from OT services- Goal:: Pt will be able to complete self feeding skills at set up level using AE as needed by d/c from OT services. Goal:: Pt/spouse will be educated on BUE HEP with good understanding and demo 100%x. Anticipated Interventions Anticipated Interventions: A/AAROM/PROM, Strengthening, Fine Motor Coord/Andrey, Neuro Reeducation, Caregiver Training, Home Program Please do not hesitate to contact me at [phone] by phone or if you have questions or concerns regarding this new plan of care! Sincerely, Merry Torrez, OTR/L, CHT
== END 2018-12-08 19:00 | disposition home or self-care (01) ==
LOC: OT 15:00
PROVIDERS: Family Provider Family Medicine Geriatric Medicine; PCP Family Medicine Geriatric Medicine; Referring Provider Psychiatry & Neurology Neurology; Visit Provider Psychiatry & Neurology Neurology
DX: G20 Parkinson's disease (principal)
CPT/HCPCS: 97110; 97116; 97164; 97165; 97166; 97168; 97530; 97535

== ENCOUNTER → 2019-01-23 13:09 | Outpatient (CLI) | payer MEDICARE, SELFPAY ==
--- NOTE | 2019-01-23 13:00 | SP.MBSS_ITS ---
PRIMARY / SECONDARY DIAGNOSIS: dysphagia (R13.12) REFERRING PHYSICIAN: Dr. Shivam Arroyo MD CURRENT DIET: mechanical soft textures, thin liquids DENTITION: natural, suboptimal repair. MENTAL STATUS: sufficient for participation. RESPIRATORY STATUS: O2 via room air REASON FOR REFERRAL: The Patient is a 74 year old male referred for a modified barium swallow (MBS) study to objectively assess the Patients oropharyngeal swallow function under fluoroscopy secondary to the diagnosis of Parkinson?s disease in combination with a prior subdural hematoma with midline shift status post right parietal craniotomy (2015). MEDICAL HISTORY: Parkinson?s disease, subdural hematoma with midline shift status post right parietal craniotomy (05/13/2016), subarachnoid hematoma, benign cerebral tumor resection (1991), chronic dysphagia status post percutaneous endoscopic gastrostomy tube placement (since removed), gastroesophageal reflux disease, chronic seizures, hypertension, hyperlipidemia. PREVIOUS MODIFIED BARIUM SWALLOW STUDY: Prior MBS completed during [facility] admission; results currently unavailable. ADDITIONAL OBJECTIVE ASSESSMENT RESULTS: 11/12/2018 MRI revealed possible minute subacute infarct of the right caudate; right craniotomy / mass with subjacent mild encephalomalacia. 03/07/2019 MRI revealed moderate atrophy and periventricular white matter ischemic changes without evidence for acute infarction; encephalomalacia and gliosis in the right frontoparietal region status post craniotomy and resection of tumor. ASSESSMENT PARAMETERS: The Patient participated in a Modified Barium Swallow (MBS) study on 01/23/2019. Dr. Hobbs was the radiologist present for this evaluation. This study was recorded in the lateral view and images were sent to PACs for storage. Scoring was completed through each trial using the 8-point Penetration-Aspiration Scale (PAS), and summarized via the Modified Barium Swallow Impairment Profile (MBSImP) and the Bolus Residue Scale (BRS), with severity scoring through the Dysphagia Severity Rating Scale (DSRS) and the Swallowing Performance Scale (PSP), and recommended diet textures through the International Dysphagia Diet Standardisation Initiative (IDDSI). RESULTS OF THE EVALUATION: The Patient presents with mild to moderate oropharyngeal dysphagia (DSRS: 3; SPS: 4) with intermittent shallow penetration without complete ejection of thin liquids secondary to the diagnosis of Parkinson?s disease in combination with a prior subdural hematoma with midline shift status post right parietal craniotomy (2015). OBJECTIVE ASSESSMENT OF SWALLOW FUNCTION (QUANTITATIVE ? PER TRIAL): PENETRATION / ASPIRATION SCALE (BARROS): 1 = does not enter airway 2 = enters airway/above vocal folds/ejected 3 = enters airway/above vocal folds/not ejected 4 = enters airway/contacts vocal folds/ejected 5 = enters airway/contacts vocal folds/not ejected 6 = enters airway/below vocal folds/ejected 7 = enters airway/below vocal folds/not ejected despite effort 8 = enters airway/below vocal folds/no effort PENETRATION / ASPIRATION SCALE (SCORE): Thin liquid - 5 mL tsp.: 1 Thin liquids via straw (single sip): 1 Thin liquids via straw (single sip): 1 Thin liquids via straw (single sip): 1 Thin liquids via straw (sequential swallows): 3 Pudding via spoon: 1 Regular textured cookie: 1 Thin liquids via straw (single sip): 3 Thin liquids via straw (chin tuck): 2 Thin liquids via straw (chin tuck): 1 Thin liquids via straw (chin tuck): 1 OBJECTIVE ASSESSMENT OF SWALLOW FUNCTION (QUANTITATIVE ? AGGREGATE): MODIFIED BARIUM SWALLOW IMPAIRMENT PROFILE (MBSImP) LABIAL SEAL: 2 (of 4) escape beyond interlabial space; no extension TONGUE CONTROL: 0 (of 3) cohesive bolus BOLUS PREPARATION / MASTICATION: 1 (of 3) slow prolonged; complete recollection BOLUS TRANSPORT / LINGUAL MOTION: 3 (of 4) repetitive / disorganized motion ORAL RESIDUE: 2 (of 4) residue collection on oral structures INITIATION OF PHARYNGEAL SWALLOW: 0 (of 4) posterior angle of ramus SOFT PALATE ELEVATION: 1 (of 4) trace column between soft palate & pharyngeal wall LARYNGEAL ELEVATION: 0 (of 3) complete superior movement / approximation ANTERIOR HYOID EXCURSION: 1 (of 2) partial movement EPIGLOTTIC MOVEMENT: 0 (of 2) complete inversion LARYNGEAL VESTIBULE CLOSURE: 0 (of 2) complete closure PHARYNGEAL STRIPPING WAVE: 1 (of 2) present / diminished PE SEGMENT OPENIN (of 3) partial distension / duration / obstruction TONGUE BASE RETRACTION: 2 (of 4) narrow column of contrast PHARYNGEAL RESIDUE: 2 (of 4) collection of residue ESOPHAGEAL BOLUS CLEARANCE: could not view BOLUS RESIDUE SCALE (BRS): 6 (of 6) residue in valleculae, posterior pharyngeal wall, and piriform sinus DYSPHAGIA SEVERITY RATING SCALE (DSRS): 3 (mild-moderate) SWALLOWING PERFORMANCE SCALE (SPS): 4 (mild to moderate) OBJECTIVE ASSESSMENT OF SWALLOW FUNCTION (QUALITATIVE): ORAL PREPARATORY PHASE: mastication inefficiency with prolonged mastication; impaired anterior bolus containment during oral presentation with mild anterior left sided bolus loss (more prominent during clinical trials without use of straw); preserved management of breathing / bolus formation without disrupted E ? S ? E pattern. ORAL TRANSITIONAL PHASE: very fine discoordinated lingual movements (fine occasional undulations) with somewhat slowed swallow onset; suboptimal oral clearance without side specific consolidation (left sided buccal pocketing during clinical trials); no presence of premature posterior bolus loss. PHARYNGEAL PHASE: no signs of pharyngeal dyssynchrony; mild reduction in hyolaryngeal excursion (particularly with anterior movement) resulting in inconsistent laryngeal vestibule pressure generated to expel penetrated material; pharyngeal dysmotility most prominently with semisolids and solids attributed to reduced posterior pharyngeal stripping wave action paired with reduced pharyngoesophageal segment opening with consolidation located throughout, though most consistently within the vallecula and pyriforms; mild velopharyngeal insufficiency without nasoregurgitation. ESOPHAGEAL PHASE: no obvious esophageal phase abnormalities observed. RESPONSE TO STRATEGIES: all deficits managed successfully with reduction in bolus rate / volume adjustments, alteration between solids and liquids, with possible benefits associate with execution of the chin tuck posture. DYSPHAGIA ASSOCIATED MEDICAL CONSIDERATIONS / INTERVENTION CONSIDERATIONS: Would consider annual repeat objective assessment of the oropharyngeal swallow function under fluoroscopy to identify changes in the oropharyngeal swallow function associated with Parkinson?s disease due to the progressive nature of the disease and higher proclivity for silent aspiration. Would consider the Patient to be at a higher risk of aspiration related medical complications / aspiration pneumonia / aspiration related pulmonary syndrome secondary to the diagnosis of multiple neurologic disorders, to include Parkinsons disease, a prior subdural hematoma and subarachnoid hematoma, and benign cerebral tumor resection (1992); presence of dysphagia; suboptimal dentition, dependent for oral care, advanced age, lower functional status, and impaired ambulatory status. Would consider this Patient to be a high risk for malnutrition and dehydration due to the presence of dysphagia and resulting poor oral control and concomitant anterior fluid loss, with higher rates of unintentional weight loss, inability to clear foods / fluids from the mouth, inability to manage oral secretions, and reduced rate of intake. The Patient may require intervention to reduce the risk of malnutrition, with considerations for food enrichment and oral nutritional supplementation. Would consider the Patent to be at a higher risk of oropharyngeal colonization with respiratory pathogens secondary to the Patient?s advanced age, his increased risk of malnutrition, suboptimal oral hygiene, impaired salivary clearance, and presence of gastroesophageal reflux disease. Aspiration of saliva contaminated with pathogens can lead to pulmonary infections, with creation, implementation, and adherence to an aggressive oral and dental care program is essential particularly given the Patients inability perform oral care with total independence. Will continue to recommend an aggressive oral care program that includes pre-rinse use prior to water intake; routine oral care in the a.m., prior to oral intake, after oral intake, and prior to bed via toothbrush / rinse; and frequent dental checkups. INTERVENTION RECOMMENDATIONS AND CONSIDERATIONS: The Patient requires continued skilled speech-language intervention targeting diet texture management and training / implementation of recommended compensatory strategies; continued Patient and caregiver education regarding dysphagia associated with Parkinson?s disease; with considerations or training and implementation of recommended oropharyngeal strengthening exercises and establishment of a carryover home exercises program to facilitate improved and maintained oropharyngeal strength and coordination. The Patient would benefit from continued skilled speech-language intervention targeting hypokinetic dysarthria via training and implementation of the Marcelo Garberman Voice Therapy (LSVT) method. POST ASSESSMENT EDUCATION: Results and recommendations were discussed with the Patient and Patients family immediately following MBS completion, with the Patient and Patients family verbalizing understanding and agreement with all recommendations and education provided. I provided brief overview of signs and symptoms of aspiration, with recommendations for the Patient to further discuss symptoms with the Patients primary care provider. DIET TEXTURE RECOMMENDATIONS: Will recommend a mechanical soft textured (IDDSI: 5), thin liquid diet (IDDSI: 0) diet RECOMMENDED COMPENSATORY STRATEGIES: Standby supervision with assistance as needed, consider execution of the chin tuck posture, liquid chaser following solids and semisolids, check for left buccal pocketing, reduced bolus volume / rate of ingestion, seated upright at 90 degrees during PO intake, remain upright for 30-60 minutes post meal (GERD precaution), medications one at a time with abraham. IMAGE COUNT: [id number] Clem Kam M.A., CCC-WIRE MESH FILTER FABRICATOR MBSImP Certified, LSVT Certified [facility] Speech-Language Pathology Department [email or web address]
--- NOTE | 2019-01-23 13:20 | RAD_ITS ---
STUDY: SWALLOWING STUDY REASON FOR EXAM: Male, 74 years old. Dysphagia. TECHNIQUE: The examination was performed with Speech Pathology in attendance. Under fluoroscopic observation, the patient ingested thin barium, thick barium, barium pudding, and barium coated cracker. FLUOROSCOPY TIME: 2:32 minutes/seconds. 2358 images were obtained. RADIOLOGIST INVOLVEMENT: Radiologist was present and providing direct supervision. COMPARISON: None. FINDINGS: The following was observed during swallowing of the various mixtures of barium: Thin Barium: Transient penetration with ingestion of thin liquids. Barium Pudding: There was no evidence of aspiration or laryngeal penetration. Barium Coated Cracker: There was no evidence of aspiration or laryngeal penetration. RAD/Swallowing Function w/Video IMPRESSION: Transient penetration with ingestion of thin liquids. The swallow study findings were discussed with the patient by the speech pathologist at the conclusion of the examination. Please see speech pathology report for more information and recommendations. Electronically Signed: Elias Hobbs, at 14:28 EDT , Service support ,
== END ==
PROVIDERS: Family Provider Family Medicine Geriatric Medicine; PCP Family Medicine Geriatric Medicine; Referring Provider Psychiatry & Neurology Neurology; Visit Provider Psychiatry & Neurology Neurology
DX: R13.10 Dysphagia, unspecified (principal)
CPT/HCPCS: 74230; 92610

== ENCOUNTER → 2019-03-05 09:28 | Outpatient (CLI) | payer MEDICARE, SELFPAY ==
[2019-03-05 16:26] LABS: Absolute Lymphocyte Count 2.29 X10^3/uL (0.83-4.51); Absolute Neutrophil Count 4.8 X10^3/uL (2.0-7.7); Basophil# 0.06 X10^3/uL; Basophil% 0.7 % (0-1); Eosinophil# 0.16 X10^3/uL; Eosinophils% 1.9 % (0-5); Hematocrit 44.8 % (40-54); Hemoglobin 14.6 g/dL (13.0-16.5); Lymphocyte # 2.29 X10^3/ul (4.0); Lymphocyte % 27.6 % (19-41); Mean Corp Hgb Conc 32.6 g/dL (32-36); Mean Corpuscular Hgb 30.9 pg (27.0-32.0); Mean Corpuscular Volume 94.7 fL (80-94); Mean Platelet Vol. 9.9 fl (6.2-12.0); Monocyte# 0.95 X10^3/uL; Monocyte% 11.5 % (0-10); NRBC Flagged by Analyzer 0 % (0-5); Neutrophil % 57.9 % (47-70); Platelet Count 312 K/mm3 (150-450); RBC Distribution Width CV 12.7 % (11.6-14.6); RBC Distribution Width SD 44.1 fl (35.1-43.9); Red Blood Count 4.73 M/mm3 (4.6-6.2); White Blood Count 8.3 K/mm3 (4.4-11.0)
[2019-03-05 16:56] LABS: AST(SGOT) 12 U/L (15-37); Alanine Aminotransfer ALT/SGPT 14 U/L (16-61); Alkaline Phosphatase 78 U/L (45-117); Anion Gap 5 (5-15); BUN 20 mg/dL (7-18); BUN/Creat Ratio 16.7 RATIO (10-20); Calcium,Total 9.4 mg/dL (8.5-10.1); Chloride 101 mmol/L (98-107); EST Glomerular Filtration Rate 63 mL/min (>60); Est Glom Filt Rate - Afr Amer 76 mL/min (>60); Globulin 3.9 g/dL (2.2-4.2); Glucose 105 mg/dL (74-106); Potassium 4.1 mmol/L (3.5-5.1); Protein, Total 7.9 g/dL (6.4-8.2); Sodium Level 137 mmol/L (136-145); Thyroid Stim Hormone (TSH) 1.15 uIU/mL (0.358-3.74)
[2019-03-05 16:58] LABS: Vitamin D,25 Hydroxy 37.8 ng/mL (29.95-100.01)
== END ==
PROVIDERS: Family Provider Psychiatry & Neurology Neurology; PCP Family Medicine Geriatric Medicine; Visit Provider Family Medicine Geriatric Medicine
DX: E55.9 Vitamin D deficiency, unspecified (principal); I10 Essential (primary) hypertension
CPT/HCPCS: 36415; 80053; 82306; 84443; 85025

== ENCOUNTER 2019-06-15 13:00 | Outpatient (RCR) | payer MEDICARE, SELFPAY ==
--- NOTE | 2018-12-11 12:00 | SOAP_ITS ---
REASON FOR REFERRAL: The Patient is a 73 year old male referred for a clinical assessment of the swallow function and cognitive communication abilities at [facility] / [facility] on 12/11/2018 due to persistent dysphagia and marked dysarthria / cognitive effects secondary to the diagnosis of Parkinson?s disease in combination with a prior subdural hematoma with midline shift status post right parietal craniotomy (2015). The Patient reports rather consistent coughing with ingestion of thin liquids, in addition to persistent left buccal pocketing of varying degrees, though can usually manage this through texture selections. He denies any significant / unintentional weight loss; denies changes in appetite or early satiety, though does report feeling fatigued during intake; denies persistent nausea or emesis. Both report that the Patient was previously NPO with total dependence on alternative means of nutrition via percutaneous endoscopic gastrostomy (PEG) tube (summer; PEG since removed), though was advanced to a PO diet following what both describe was a modified barium swallow study, though results were unavailable at the time of assessment; he was placed on a thickening agent at some point during this transition from NPO to PO textures, and clearly states his distaste for thickener. Currently he is supplementing with Boost. Both report chronic dehydration. He also states that he is gluten free. He denies any current or prior symptoms of trismus; reports persistent xerostomia in addition to diurnal sialorrhea (SSS: 7); denies any dysgeusia / hypogeusia / ageusia or hyposmia. He reports occasional reflux without substernal discomfort or odynophagia. Both deny any current or previous issues with aspiration related pulmonary complications, to include pneumonia, bronchitis, or unexplained asthma symptoms. Both report a continued reduction in speech intelligibility following the diagnosis of Parkinson?s disease which was complicated by the above mentioned subdural hematoma, with concomitant complications with cognition and affect. Upon further clarification, the Patient states that he has ?lost his command voice?, and is quite irritated by having to repeat himself rather frequently. He has underwent some form of alternative and augmentative communication evaluation / attempted implementation, though it was difficult to fully discern to what degree, with little apparent success. Both report participation in ?Delay the Disease? targeting effects of Parkinson?s disease. The Patient is essentially non-ambulatory, though is able to transfer with assistance; appears somewhat frail, and is rather dependent across ADLs and IADLs. He is no longer vocationally active. MEDICAL HISTORY: Parkinson?s disease, subdural hematoma with midline shift status post right parietal craniotomy (05/13/2016), subarachnoid hematoma, benign cerebral tumor resection (1991), chronic dysphagia status post percutaneous endoscopic gastrostomy tube placement (since removed), gastroesophageal reflux disease, chronic seizures, hypertension, hyperlipidemia. PREVIOUS MODIFIED BARIUM SWALLOW STUDY: Prior MBS completed during halfway admission; results currently unavailable. ADDITIONAL OBJECTIVE ASSESSMENT RESULTS: 11/12/2018 MRI revealed possible minute subacute infarct of the right caudate; right craniotomy / mass with subjacent mild encephalomalacia. 03/07/2019 MRI revealed moderate atrophy and periventricular white matter ischemic changes without evidence for acute infarction; encephalomalacia and gliosis in the right frontoparietal region status post craniotomy and resection of tumor. ORAL MOTOR / MODIFIED CRANIAL NERVE ASSESSMENT: CNVII impaired; left labial asymmetry at rest / upon retraction / protrusion. CNIX impaired; left posterior lingual hypoesthesia, right uvular deviation with hypernasality. CNX impaired; compromised volitional / reflexive cough (dystussia), dysphonic vocal quality. Natural upper / lower dentition in suboptimal repair. Xerostomia with halitosis; persistent diurnal sialorrhea (SSS:7). Impaired cough intensity (dystussia). No signs or symptoms of trismus. Marked dysarthria with hypophonia. Frail appearance. FUNCTIONAL STATUS ASSESSMENT RESULTS: Ruiz Index of [place] in Activities of Daily Livin/6 Bathin Dressin Toiletin Transferrin Continence: 1 Feedin Lela ? Cesar Instrumental Activities of Daily Living Scale (IADL): 0/8 Ability to Use Telephone: 0 Shoppin Food Preparation: 0 Housekeepin Laundry: 0 Mode of Transportation: 0 Responsibility for Own Medications: 0 Ability to Handle Finances: 0 SUPPLEMENTARY DYSPHAGIA ASSESSMENT RESULTS (QUANTITATIVE): Eating Assessment Tool ? 10 (EAT-10): 3 (3 or higher may represent dysphagia) Sialorrhea Scoring Scale (SSS): 7/9 (severe, clothing becomes damp, frequently) CLINICAL ASSESSMENT OF SWALLOW FUNCTION (QUANTITATIVE): Repetitive Saliva Swallowing Test (RSST): Failed; < 2 dry swallows within 30 seconds. Modified Water Swallowing Test (MWST): Pass ? 4 (of 5) 1oz (30mL) Water Swallowing Test (1oz WST): Abnormal ? 3 (of 5) Koo? 6 Factors: Failed ? 4 (of 6) Wild Assessment of Swallowing Ability (MASA): 149 (moderate) MASA Aspiration Severity Score: 149 (mild) MASA Dysphagia Risk Rating: Definite; strong evidence for disorder Swallowing Performance Scale (PSP): 5 (moderate) CLINICAL ASSESSMENT OF SWALLOW FUNCTION (QUALITATIVE): ORAL PREPARATORY PHASE: mastication inefficiency with prolonged mastication; impaired anterior bolus containment with significant anterior left sided bolus loss; preserved management of breathing / bolus formation without disrupted E ? S ? E pattern ORAL TRANSITIONAL PHASE: delayed onset timing (1-3 seconds); impaired oral clearance with left sided buccal pocketing; no signs or symptoms of premature posterior bolus loss; PHARYNGEAL PHASE: appropriate hyolaryngeal excursion upon digital palpation; intermittent / prominent audible swallow possibly suggestive of pharyngeal swallow delay / dyssynchrony with larger bolus volumes of liquids; no subjective signs of pharyngeal dysmotility; sensations of nasoregurgitation of thin liquids suggestive of velopharyngeal insufficiency; coughing / throat clearing indicative of overt aspiration during trials of thin liquids with sequential ingestion / larger bolus volumes (ameliorated with reduced volumes and rate). ESOPHAGEAL PHASE: esophageal phase appears unremarkable COGNITIVE COMMUNICATION ASSESSMENT RESULTS: Quick Aphasia Battery (QAB): Motor speech features: Dysarthria: 1 (marked) Apraxia of Speech: 4 (normal) Aphasia Severity Rating Scale (ASRS): 5 (Minimal) Apraxia of Speech Rating Scale (ASRS-v1): 0 (not present) [facility] Voice Treatment (LSVT): Maximum Duration of Sustained Production: 69.25 dBSPL at 1.5 seconds Reading of a Passage: 58.6 dBSPL Conversation Monologue: 57.0 dBSPL Generate Words: 57.1 dBSPL Stimulability Testing : Sustained Vowel Phonation: 73.5 dBSPL at 1.23 seconds Functional Phrases: 74.3 dBSPL RESULTS: The Patient presents with moderate oropharyngeal dysphagia 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 RECOMMENDATIONS: Cannot definitively rule out silent aspiration at bedside. The Patient requires further assessment of the oropharyngeal swallow function under fluoroscopy given the etiology of cause, the subjective nature of the current assessment regarding pharyngeal phase impairments and the limited ability to assess the Patients pharyngeal range of motion and response to therapeutic maneuvers. The Patient requires intensive skilled speech-language intervention targeting diet texture management and training / implementation of recommended compensatory strategies; Patient / caregiver education regarding dysphagia, dysarthria, and cognitive changes associated with Parkinson?s disease; with goal adjustment pending MBS completion. The Patient further requires intensive skilled speech-language intervention targeting hypokinetic dysarthria via training and implementation of the Marcelo Garberman Voice Therapy (LSVT) method. DIET TEXTURE RECOMMENDATIONS: Will recommend a mechanical soft textured (IDDSI: 5), thin liquid diet (IDDSI: 0) . RECOMMENDED COMPENSATORY STRATEGIES: Standby supervision with assistance as needed, reduced bolus volume / rate of ingestion, seated upright at 90 degrees during PO intake, remain upright for 30-60 minutes post meal (GERD precaution), medications one at a time with purees. FUNCTIONAL OUTCOMES: OUTCOME 1: the Patient will tolerate the least restrictive means of nutrition to facilitate adequate hydration / nutrition with optimum safety and efficiency of swallowing function during P.O. intake without overt signs and symptoms of aspiration. OUTCOME 2: the Patient will demonstrate and utilize recommended compensatory swallowing techniques to facilitate improved airway protection and decreased risk for aspiration during PO intake. OUTCOME 4: the Patient will participate in a Modified Barium Swallow (MBS) study to objectively assess the Patient?s oropharyngeal swallowing function, to determine the least restrictive means of nutrition, to objectively assess the effectiveness of previously identified strategies / precautions, and to identify appropriate intervention approaches / strategies to implement during treatment sessions at the supervised level. OUTCOME 5: the Patient will independently demonstrate and utilize recommended compensatory articulation techniques (increased vocal intensity, reduced rate of speech) to facilitate increased expressive communication abilities in the home and social environments. OUTCOME 6: the Patient will participate in continual assessment of the communication profile to determine the appropriateness for alternative and augmentative communication device implementation at the supervised level. OUTCOME 7: goal adjustment as needed post MBS Clem Kam M.A., CCC-SENIOR PUBLICATIONS SPECIALIST MBSImP Certified, LSVT Certified [facility] Speech-Language Pathology Department [email or web address]
--- NOTE | 2018-12-18 16:35 | HP.PTREVAL ---
Shivam Arroyo MD, It has been my pleasure to treat JENNIFER CORONA over the last 50 visits for PD. Please see the progress note below for an update on the physical therapy plan of care! Subjective: Doing OK. and him want to continue. No pain and doing well. Objective/Function: Sit to stadn is mod A as patient does nto get weight all the way forward and hips stay posterior to KUSH. Hard time gripping walker with R UE. Sitting position is poor with pelvis facing L and sacral sitting and looking at floor with L arm dangling unit cues . Can correct each one of these I with cues but does not sit properly on his own. Unabe to stand for any time without Min A to prevent posterior collapse. Stays flexed at hips and weight stays posterior at foot. PT APPEARS TO BE WALKING FURTHER IN PARLLEL BARS BUT DID NOT TRASNLATE TO IMPROVED STANCE OR GAIT TODAY. APPROPRIATE TO CONTINUE 4 MORE WEEK POC BUT EMPHASIZED STANCE OUTSIDE OF PARALLEL BARS TO SEE IF CAN CORRECT BALANCE IN STANCE. Plan Plan: 2X/WEEK FOR 4 WEEKS FOR. 1. STANCE WITHOUT BARS IF ABLE. 2. gAIT WITH WALKER IF ABLE WITHOUT HOLDING PATIENT UP MANUALLY. 3. LE STRENGTH EX IN CHAIR AND ON TABLE AND PROGRESS TO I. GOALS STILL APPROPRIATE BUT PROGNOSIS IS QUESTIONABLE PATIENT IS UP AND DOWN AND HAS BEEN FOR LONG TIME. Goals Goal 1:: Find neutral sitting posture particularly with L UE/ LE without cues consistently Goal Time Frame: 6-8 Weeks Goal Progress: Progressing Goal 2:: Stadn without BW LOB to appropriately do LE ex of marching and reaching without LOB Goal Time Frame: 6-8 Weeks Goal Progress: Not Progressing Goal 3:: Stand straight up Min A for 30 seconds Goal Time Frame: 6-8 Weeks Goal Progress: Not Progressing Goal 4:: Walk with wh walker SBA 10 feet consistently without LOB BW Goal Time Frame: 6-8 Weeks Goal Progress: Not Progressing Anticipated Interventions Patient/Client Instruction: Educate patient on: Condition, Plan of Care For the Purpose of:: To decrease level of supervision to perform tasks, To improve gait and locomotor functions Therapeutic Exercise to Include: Strength training, Balance training, Gait and locomotor training For the Purpose of:: To improve ability to perform ADL's, To improve ability of physical actions for home/community/work/leisure, To improve gait and locomotor functions Please do not hesitate to contact me at [phone] by phone or if you have questions or concerns regarding this new plan of care! Sincerely, Jaylon Hurtado, DPT, OCS, CSCS
--- NOTE | 2019-01-27 09:23 | OTREVAL_ITS ---
Shivam Arroyo MD, It has been my pleasure to treat JENNIFER CORONA over the last 35 visits for PD. Please see the progress note below for an update on the occupational therapy plan of care! Subjective: pt arrives to session- states he has been better at doing his HEP. pt states he can feed himself. Pt states he can take off clothing and put it on, states not 100% but better. states pt can perform about 20% of his bathing and dressing task. states she assist 80% of the time. states the focus they would like is to use left UE on WW to improve his functional mobility Objective/Function: right engineer intern strength 45# a decline from 50#. left engineer intern strength 5# no change in engineer intern strength. right lateral pinch 12# a increase from7# and left lateral pinch 8# a increase from 0# pt right UE demo MMT 4+/5 grossly throughout- Left UE continues to struggle with shoulder flex at 3-/5 with drift to side and down-pt demo elbow flex at 4/5 and elbow ext at 3-/5. pt needs increased time to process instructions and visual cues. Therapist will cont with PRE of UE to gain strength to work with PT on use of platform with ww on left UE to increase pts functional mobility. Therapist will aslo look at ad. device to assist pt with grasping ww for short amb. distance. Plan Frequency: 2x /Week Duration: 4 Weeks Plan: cont with UB strengthening to improve strength for amb with ww Goals - Goals Goal:: Pt will progress w/ generalized BUE strength 4/5 to assist with functional transfers and ADL tasks. Pt will progress with L UE engineer intern strength to 15# to assist with self feeding tasks. pt will demo left engineer intern/endurance to hold ww for short distance mobility and tsf by [facility] Goal:: Pt will demo increased fine motor coordination skills to stab food with fork and get to mouth w/o spillage and get coffee cup to mouth without spillage. Goal:: pt/spouse will be educated on BUE HEP with good understanding and demo 100%x. Goal:: pt will demo understanding of using ad. device while amb. with ww, as orthosis/platform walker to increase functional mobility by d/c Anticipated Interventions Anticipated Interventions: A/AAROM/PROM, Strengthening, Orthoses, Ergonomic Education, Caregiver Training, Home Program Please do not hesitate to contact me at [phone] by phone or if you have questions or concerns regarding this new plan of care! Sincerely, Merry Torrez, OTR/L, CHT
--- NOTE | 2019-01-29 18:04 | HP.PTREVAL ---
Shivam Arroyo MD, It has been my pleasure to treat JENNIFER CORONA over the last 57 visits for PD. Please see the progress note below for an update on the physical therapy plan of care! Subjective: sees minute changes like core weakness. Using trapeze at home to help. Trasnfers same as a month ago. Doing bed exercises at home including WC pushups and more I with scooting adn transfers.Constantly doing home exercises in gym and LE ex at home adn standing. Objective/Function: Takes brakes and foot holds off both sides WC. Posture is good without VC today. Tends to not use L UE. Needs Max A to move WC 5 inches due to L UE prbems. Unable to keep hubs on WC due to room constraints at home. Sit to stand CGA initially then Min A for balance, VC to shift forward onto L UE platform walker but then stand unassisted at walker when placed for 45 seconds with cues to push front of walker down. still tends posterior but much better than a month ago today. Stand to sit with Min A for safety as patient tends to shift B prior to reaching for WC arm. Able to ambulate 4 feet today with L UE platform Wh walker needing balance assist to avoid post shift. Fatigue causes hips to project posterior and weight to go BW. pts weight tends to keep hips left adn get feet to close together when stepping. PT PROGRESS IS SLOW AND MANY TIMES UP AND DOWN. THIS MAKES NOTING PROGRESS CONSISTENTLY CHALLENGING HOWEVER PATIENT IS CONSIDERABLY BETTER THIS MONTH THAN LAST RECHECK WITH BALANCE AND GAIT. APPROPRIATE TO CONTINUE SKILLED INTERVENTION THAT HE CANNOT DO AT HOME SAFELY INCLUDING STAND BALANCE AND GAIT TRAINING. RECOMMEND PLATFORM WALKER AND PT TO ASK DOCTOR FOR ORDER FOR PLATFORM TO ADD TO HIS WALKER. Plan Plan: 2x/week for 4-8 weeks. gAIT TRAINING WITH PLATFORM WALKER ADN STANDING BALANCE/TRANSFER. Goals Goal 1:: Find neutral sitting posture particularly with L UE/ LE without cues consistently Goal Time Frame: 6-8 Weeks Goal Progress: Goal Met Goal 2:: Stadn without BW LOB to appropriately do LE ex of marching and reaching without LOB Goal Time Frame: 6-8 Weeks Goal Progress: Not Progressing Goal 3:: Stand straight up Min A for 30 seconds Goal Time Frame: 6-8 Weeks Goal Progress: Goal Met with pform walke Goal 4:: Walk with wh walker SBA 10 feet consistently without LOB BW Goal Time Frame: 6-8 Weeks Goal Progress: progressing, approp Goal 5:: Stand 30 seconds without walker and sit properly adn safely without VC. Goal Time Frame: 6-8 Weeks Goal Progress: NEW GOAL Goal 6:: Maintain ability to trasnfer sit to stand with CGA to aid in home trasnfers. Goal Time Frame: 6-8 Weeks Goal Progress: NEW GOAL Anticipated Interventions Patient/Client Instruction: Educate patient on: Condition, Plan of Care For the Purpose of:: To decrease level of supervision to perform tasks, To improve gait and locomotor functions Therapeutic Exercise to Include: Strength training, Balance training, Gait and locomotor training For the Purpose of:: To improve ability to perform ADL's, To improve ability of physical actions for home/community/work/leisure, To improve gait and locomotor functions Please do not hesitate to contact me at [phone] by phone or if you have questions or concerns regarding this new plan of care! Sincerely, Jaylon Hurtado, DPT, OCS, CSCS
--- NOTE | 2019-02-27 15:59 | HP.PTREVAL_ITS ---
Shivam Arroyo MD, It has been my pleasure to treat JENNIFER CORONA over the last 64 visits for PD. Please see the progress note below for an update on the physical therapy plan of care! Subjective: Rough day. Working in OT and having trouble putting cones on top of each other. thinks small increments of getting stronger. Standing while holding onto bar at home. Transfers through stadning with wifes help, shuffles feet and plops. Less assist needed than a month ago. Sleeping OK on back or side adn rolls by himslef. Doing arm weights at home, LAQ sometimes, SLR sometime and standing and sitting Objective/Function: Sitting with good posture todaya d actively sitting vs hunched in chair, symmetrical. Dons and dofffs wheelchairfoot holds I today. Sit to stadn with Min a for FW weight shift x 3 today and stand to sit with VC to reach for chair. Stands 1x today after VC for FW shift 1+ minute without huynh nds on assist. But the other 2x unable to find balance point or shift weight forward as he pulls on the walker and stands hunched unable to bring butt forward with gluts and stand. PT FRUSTRATINGLY UP AND DOWN WITH ABILITY TO STAND AND TRANSFER AND EVEN SIT WITH SYMMETRY. SOME DAYS GOOD AND OTHER DAYS WORSE. OVERALL NOT PROGRESSING MUCH WITH FUNCTION BUT IS MAINTAINING. Plan Plan: 2X/WEEK FOR 4 WEEKS. PLEASE FOCUS ON GETTING ON HEP WITH MOD I. (BRIDGING, SLR, [place], LAQ, SKF, CORE ON MAT) GIVE PICS AND WORK TO HOME. ALSO CONTINUE TO WORK ON CONSISTENCY WITH STANCE BUT EMPHASIZE HEP. FAIR PROGNOSIS TO GET ON HEP, POOR TO MAKE PROGRESS WITH MOBILITY IN STANDING Goals Goal 1:: I approp HEP in chair and bed for LE adn core strength to mod I, min A from . Goal Time Frame: 2-4 Weeks Goal Progress: NEW GOAL Goal 2:: Stadn without BW LOB to appropriately do LE ex of marching and reaching without LOB Goal Time Frame: 6-8 Weeks Goal Progress: Not Progressing Goal 3:: Stand straight up Min A for 30 seconds Goal Time Frame: 6-8 Weeks Goal Progress: inconsistent, approp Goal 4:: Walk with wh walker SBA 10 feet consistently without LOB BW Goal Time Frame: 6-8 Weeks Goal Progress: Not Progressing Goal 5:: Stand 30 seconds without walker and sit properly adn safely without VC. Goal Time Frame: 6-8 Weeks Goal Progress: Not Progressing Goal 6:: Maintain ability to trasnfer sit to stand with CGA to aid in home trasnfers. Goal Time Frame: 6-8 Weeks Goal Progress: Progressing Anticipated Interventions Patient/Client Instruction: Educate patient on: Condition, Plan of Care For the Purpose of:: To decrease level of supervision to perform tasks, To improve gait and locomotor functions Therapeutic Exercise to Include: Strength training, Balance training, Gait and locomotor training For the Purpose of:: To improve ability to perform ADL's, To improve ability of physical actions for home/community/work/leisure, To improve gait and locomotor functions Please do not hesitate to contact me at [phone] by phone or if you have questions or concerns regarding this new plan of care! Sincerely, Jaylon Hurtado, DPT, OCS, CSCS
--- NOTE | 2019-03-27 16:18 | HP.PTREVAL ---
Shivam Arroyo MD, It has been my pleasure to treat JENNIFER CORONA over the last 71 visits for PD. Please see the progress note below for an update on the physical therapy plan of care! Subjective: To doctor Cruz in july. Exercises not really helping. says he does ex routine in bed daily. Has times where he gets around better adn other where he does not. . Wie says 70% better in getting around and stamina increasing and more alert. Leaning on her less. Later day appointments in afternoon may be worse due to meds wearing off. No meds changes since January. New cirpt received for PT to continue. Pt sick of having to sit in chair. Objective/Function: New script received from Dr. Arroyo for continued PT. Sit to stadn 1x today without VC CGA. Stood at walker without hnads on assist (CGA) for 60 seconds today adn able to release both hands from walker for 10 sec 2x. Extremely hunched over looking at floor even with VC. With walker can stadn slightly taller. Fatigues quickly and then tends posterior. Is able to lie flat comfortably with only some IR at L femur as the asymmetry. Functionally unable to repeat his CGA trasnfer or stand for any further length of time today after initial. Unable to ambulate with walker or pivot with walker today without LOB BW. Unable to correct with VC. DIFFICULT CONVERSATION WITH PATIENT AND TODAY REGARDING THE LACK OF IMPROVEMENT AND THAT HIS FUNCTION MAY NOT GET BETTER THAN IT IS RIGHT NOW. OFFERED POOL TRIAL BUT NOT INTERESTED RIGHT NOW. WILLING TO BE MORE CONSISTENT WITH HEP 3-4X/WEEK AND MAY TRY TO GET BACK TO GYM EX WHICH THEY HAVE GOTTEN AWAY FROM. APPROPRIATE FOR MAINTENANCE THERAY AND WEANING FROM PT CONDITION ALLOWS . PATIENT FRUSTRATED WITH LACK OF IMPROVEMENT . FAIR PROGNOSIS FOR MAINTENANCE GOALS. Plan Plan: WEEKLY X 4 WEEKS THEN EVERY OTHER WEEK X 4 WEEKS TO ENSURE CHALLENGE ADN PROGRESS WITH BED HEP AND ANSWER QUESTIONS THEY MAY HAVE AND ENSURE TRASNITION AND STADNING ARE MAINTAINING AND TRY AMBULATION CONDITION ALLOWS. Goals Goal 1:: I approp HEP in chair and bed for LE adn core strength to mod I, min A from . Goal Time Frame: 2-4 Weeks Goal Progress: Goal Met Goal 2:: Pt to do I HEP subjectively 3x/week adn gym ex 2x/week to help maintain condition. Goal Time Frame: 6-8 Weeks Goal Progress: NEW GOAL Goal 3:: Stand straight up Min A for 30 seconds Goal Time Frame: 6-8 Weeks Goal Progress: Goal Met, 1x today Goal 4:: Maintain current level of functional ability at home while weaning off of PT to HEP(CGA to min A trasnfer, stadn 30 sec without BW shifting) Goal Time Frame: 6-8 Weeks Goal Progress: NEW GOAL Goal 5:: Stand 30 seconds without walker and sit properly adn safely without VC. Goal Time Frame: 6-8 Weeks Goal Progress: Not Progressing Goal 6:: Maintain ability to trasnfer sit to stand with CGA to aid in home trasnfers. Goal Time Frame: 6-8 Weeks Goal Progress: met and appropriate. Anticipated Interventions Patient/Client Instruction: Educate patient on: Condition, Plan of Care For the Purpose of:: To decrease level of supervision to perform tasks, To improve gait and locomotor functions Therapeutic Exercise to Include: Strength training, Balance training, Gait and locomotor training For the Purpose of:: To improve ability to perform ADL's, To improve ability of physical actions for home/community/work/leisure, To improve gait and locomotor functions Please do not hesitate to contact me at [phone] by phone or if you have questions or concerns regarding this new plan of care! Sincerely, Jaylon Hurtado, DPT, OCS, CSCS
--- NOTE | 2019-04-29 14:39 | HP.PTREVAL ---
Shivam Arroyo MD, It has been my pleasure to treat JENNIFER CORONA over the last 75 visits for PD. Please see the progress note below for an update on the physical therapy plan of care! Subjective: Getting better. Transferring much easier at home according to . Just needs CGA at home. Does have tired times. No pain. Doing leg exercises at home adn using GTB. Not walking at home but stadning in bathroom and at walker. Tired today after treatment. Objective/Function: Sit to stadn cga to Min A 5x today, tired after one hour treatment and legs start to collapse on last stance. Stands at walker for about 20 seconds each time except for 3rd time and that was 60 seconds without holding on. Other times tended posterior and needs Min A to keep from backwards LOB. Unabe to walk for me today. Knees stay bent adn pt is hunched over considerably more with each stance. Unable to transfer today due to fatigue after one hour session. Overall maintaining for the last month adn maybe subjectively slightly better. plan to continueweekly for next four weeks before attempting every other week if things going well with HEP Plan Plan: weekly x 4 weeks to cotninue maintenance trasnfer, stance adn gait as able. Ensure HEP is getting done and challenging enough. Appropriate for maintenance therapy as they cannot safely stand at home adn needs monitor HEP. Appropriate goals and fair prognosis for maintenance. Goals Goal 1:: I approp HEP in chair and bed for LE adn core strength to mod I, min A from . Goal Time Frame: 2-4 Weeks Goal Progress: Goal Met Goal 2:: Pt to do I HEP subjectively 3x/week adn gym ex 2x/week to help maintain condition. Goal Time Frame: 6-8 Weeks Goal Progress: met , approriate Goal 3:: Stand straight up Min A for 30 seconds Goal Time Frame: 6-8 Weeks Goal Progress: Not withotu walker. Goal 4:: Maintain current level of functional ability at home while weaning off of PT to HEP(CGA to min A trasnfer, stadn 30 sec without BW shifting) Goal Time Frame: 6-8 Weeks Goal Progress: met, appropriate Goal 5:: Stand 30 seconds without walker and sit properly adn safely without VC. Goal Time Frame: 6-8 Weeks Goal Progress: Not Progressing Goal 6:: Maintain ability to trasnfer sit to stand with CGA to aid in home trasnfers. Goal Time Frame: 6-8 Weeks Goal Progress: met and appropriate. Anticipated Interventions Patient/Client Instruction: Educate patient on: Condition, Plan of Care For the Purpose of:: To decrease level of supervision to perform tasks, To improve gait and locomotor functions Therapeutic Exercise to Include: Strength training, Balance training, Gait and locomotor training For the Purpose of:: To improve ability to perform ADL's, To improve ability of physical actions for home/community/work/leisure, To improve gait and locomotor functions Please do not hesitate to contact me at [phone] by phone or if you have questions or concerns regarding this new plan of care! Sincerely, Jaylon Hurtado, DPT, OCS, CSCS
--- NOTE | 2019-05-28 15:57 | HP.OTDCSUM_ITS ---
HP - OT D/C Summary It has been my pleasure to treat JENNIFER CORONA under orders from Shivam Arroyo MD, for the diagnosis of PD for a total of 53 visit(s). Please see the following information for a summary of their discharge status. - Objective Objective/Function: pt demo with right UE MMT 4+/5 grossly throughout. left UE shoulder flex 3-/5 shoulder adduction 4+/5 left bicep/tricp 4+/5. right account liaison hospice strength 46# left account liaison hospice strength 13#. pt has done well with HEP. - Goals Patient Goals: Regain Strength, Use Hand/Wrist/Arm Normally Again Goal:: Pt will progress w/ generalized BUE strength 4/5 to assist with functional transfers and ADL tasks. Pt will progress with L UE account liaison hospice strength to 15# to assist with self feeding tasks. pt will demo left account liaison hospice/endurance to hold ww for short distance mobility and tsf by dxc Goal:: Pt will demo increased fine motor coordination skills to stab food with fork and get to mouth w/o spillage and get coffee cup to mouth without spillage. Goal:: pt/spouse will be educated on BUE HEP with good understanding and demo 100%x. Goal:: pt will demo understanding of using ad. device while amb. with ww, as orthosis/platform walker to increase functional mobility by d/c - Plan Plan: d/c - D/C Information Discharge Comments: pt was seen for 53. pt made progress but continues to struggle with motor planning of shoulder flex and functional use of left hand. Pt and are working with a HEP. and will cont. with HEP to cont to maintain his strength. please see above for measurments. Pt and know they can call with questions or concers. If there are questions or concerns regarding this patient's occupational therapy, please fell free to call me at [phone]. Thank you for the referral of this patient. Sincerely, Merry Torrez, OTR/L, CHT
--- NOTE | 2019-06-05 16:20 | HP.PTREVAL ---
Shivam Arroyo MD, It has been my pleasure to treat JENNIFER CORONA over the last 80 visits for PD. Please see the progress note below for an update on the physical therapy plan of care! Subjective: Perfect! Going the right way. Transfers better than last month. Getting into chair. thsi morning he turned around and used hands to sit. Parkinsons meds every 8 hours being more compliant with timing. Objective/Function: Pt moved sit to stand 4 today and needed min A 3/4 for balance. Stood initially 30 seconds hunched over and looking at floor with assist to keep from plunging BW, corrected with VC. 2x stood only a few seconds adn never got balance. Last time stood with therapist placing L UE in patform adn stood nearly 60 seconds up much taller and much of that without hands on assist. Still has full PROM in LE joints but is ttight in HS and too weak to use this full motion with body weight against gravity.Sits with knees together abut can correct to solid leg position with cues. 3+ hip abd strength, 3- hip ext, 3 hip flexion, 3+ knee flexion adn extension. Says he can still lie flat on bed without much pain but cannot assume this position against gravity. OVERALL IS MAINTAINING EASE OF TRANSERS AT HOME AND EVEN FEELS BETTER SINCE DOWNSIZING THERAPY TO WEEKLY. APPROPRIATE TO COTNINUE MAINTENANCE THERAPY OF TRANSFERS AND STANCE WITH SKILLED INTERVENTION. Plan Plan: eVERY OTHER WEEK FOR 2 MONTHS TO MAINTAIN STANCE, BALANCE AND TRANSFERS. PT TO EX AT HOME AND WORK ON STANDING INCLUDING WITH PLATFORM WITH WIFES HELP. CONTINUE HEP DIALY ABLE. GOALS APPROPRIATE AND NEW ONE SET. FAIR PROGNOSIS FOR MAINTENANCE BASED ON WEANING FROM 2X/WEEK THERAPY SO FAR. Goals Goal 1:: I approp HEP in chair and bed for LE adn core strength to mod I, min A from . Goal Time Frame: 2-4 Weeks Goal Progress: Goal Met Goal 2:: Pt to do I HEP subjectively 3x/week adn gym ex 2x/week to help maintain condition. Goal Time Frame: 6-8 Weeks Goal Progress: NOT IN GYM BUT AT HOME. Goal 3:: Stand straight up Min A for 30 seconds Goal Time Frame: 6-8 Weeks Goal Progress: Not Progressing Goal 4:: Maintain current level of functional ability at home while weaning off of PT to HEP(CGA to min A trasnfer, stadn 30 sec without BW shifting) Goal Time Frame: 6-8 Weeks Goal Progress: met, appropriate Goal 5:: STAND AT PLATFORM WALKER 2 MINTUES WITH ONLY ASSIST OF PUTTING L UE INTO PATFORM. Goal Time Frame: 6-8 Weeks Goal Progress: Not Progressing Goal 6:: Maintain ability to trasnfer sit to stand with CGA to aid in home trasnfers. Goal Time Frame: 6-8 Weeks Goal Progress: met and appropriate. Anticipated Interventions Patient/Client Instruction: Educate patient on: Condition, Plan of Care For the Purpose of:: To decrease level of supervision to perform tasks, To improve gait and locomotor functions Therapeutic Exercise to Include: Strength training, Balance training, Gait and locomotor training For the Purpose of:: To improve ability to perform ADL's, To improve ability of physical actions for home/community/work/leisure, To improve gait and locomotor functions Please do not hesitate to contact me at [phone] by phone or if you have questions or concerns regarding this new plan of care! Sincerely, Jaylon Hurtado, DPT, OCS, CSCS
== END 2019-06-15 19:00 | disposition home or self-care (01) ==
LOC: PT 13:00
PROVIDERS: Family Provider Psychiatry & Neurology Neurology; PCP Family Medicine Geriatric Medicine; Referring Provider Family Medicine Geriatric Medicine; Visit Provider Psychiatry & Neurology Neurology
DX: I69.354 Hemiplegia and hemiparesis following cerebral infarction affecting left non-dominant side (principal); I69.322 Dysarthria following cerebral infarction; G20 Parkinson's disease
CPT/HCPCS: 92507; 92523; 92526; 92610; 97035; 97110; 97112; 97116; 97164; 97530

== ENCOUNTER → 2019-08-17 13:36 | Outpatient (CLI) | payer MEDICARE, SELFPAY ==
[2019-08-17 15:25] LABS: AST(SGOT) 12 U/L (15-37); Alanine Aminotransfer ALT/SGPT 13 U/L (16-61); Alkaline Phosphatase 79 U/L (45-117); Anion Gap 5 (5-15); BUN 19 mg/dL (7-18); BUN/Creat Ratio 18.1 RATIO (10-20); Calcium,Total 9.8 mg/dL (8.5-10.1); Chloride 101 mmol/L (98-107); Creatinine, Serum 1.05 mg/dL (0.70-1.30); EST Glomerular Filtration Rate 73 mL/min (>60); Est Glom Filt Rate - Afr Amer 88 mL/min (>60); Globulin 4.1 g/dL (2.2-4.2); Glucose 58 mg/dL (74-106); Potassium 3.8 mmol/L (3.5-5.1); Protein, Total 8.1 g/dL (6.4-8.2); Sodium Level 139 mmol/L (136-145)
[2019-08-21 13:01] LABS: Lamotrigine (Lamictal) Level 16.9 ug/mL (2.0-20.0)
== END ==
PROVIDERS: PCP Family Medicine Geriatric Medicine; Referring Provider Psychiatry & Neurology Neurology; Visit Provider Psychiatry & Neurology Neurology
DX: G40.019 Localization-related (focal) (partial) idiopathic epilepsy and epileptic syndromes with seizures of localized onset, intractable, without status epilepticus (principal)
CPT/HCPCS: 36415; 80053; 80177; 82542

== ENCOUNTER 2019-08-28 14:00 | Outpatient (RCR) | payer MEDICARE, SELFPAY ==
--- NOTE | 2019-07-14 14:01 | HP.PTREVAL_ITS ---
Shivam Arroyo MD, It has been my pleasure to treat JENNIFER CORONA over the last 81 visits for PD. Please see the progress note below for an update on the physical therapy plan of care! Subjective: No pain. Doing all right. Sort of doing exercises at home. Doing leg lifts and leg exercises, supine lie, bridging adn the like. Standing with transfers mostly. says trying to transfer with walker but leaning backwards. Sees Dr. Arroyo 08/05 for 6 month f/u. Objective/Function: Transfer sit to stadn with Min A today and VC for balance x 5, stadn to sit with cues for UE. Stood for 30-50 sec 3x today with only VC to shift weight FW intermittently.. needed to sit after 50 seconds. Transfer sit to supine to sit I, rolled onto R side with just VC. Unable to take any meaningful steps with walker today, tended posterior as soon as tried to move walker or feet and harder to even get balance with fatigue as the hour went along. Transfer sit to stadn with Min A today and VC for balance x 5, stadn to sit with cues for UE. Stood for 30-50 sec 3x today with only VC to shift weight FW intermittently.. needed to sit after 50 seconds. Transfer sit to supine to sit I, rolled onto R side with just VC. Unable to take any meaningful steps with walker today, tended posterior as soon as tried to move walker or feet and harder to even get balance with fatigue as the hour went along. Transfer sit to stadn with Min A today and VC for balance x 5, stadn to sit with cues for UE. Stood for 30-50 sec 3x today with only VC to shift weight FW intermittently.. needed to sit after 50 seconds. Transfer sit to supine to sit I, rolled onto R side with just VC. Unable to take any meaningful steps with walker today, tended posterior as soon as tried to move walker or feet and harder to even get balance with fatigue as the hour went along. Overall, he is maintaining for the most part his functional mobility but not showing improvements. hip adductors seem very tight today but able to lie flat on back with only slight 5 degree of hip fexion and knee flexion. Appropriate to cotninue every other week mainten ance therapy prior to attempting less frequent unless something changes medically. Fair prognosis. Goals appropriate. Plan Plan: Continue plan every other week for maintenance of transitions and function and attempted wh walker ambulation as able. Goals Goal 1:: Maintain current level of functional ability at home (at last recheck) while weaning off of PT to HEP(CGA to Min A transfer, stand 30 sec without BW weight shifting.) Goal Time Frame: 6-8 Weeks Goal Progress: Progressing Goal 2:: Stand at platform walker 2 minutes with only assist of putting L UE onto platform Goal Time Frame: 6-8 Weeks Goal Progress: walker 50 sec. Goal 3:: Maintain ability to transfer sit to stand with CGA to aid in home transfers Goal Time Frame: 6-8 Weeks Goal Progress: met so far. 1/[address] in[address] Anticipated Interventions Patient/Client Instruction: Educate patient on: Condition, Plan of Care For the Purpose of:: To improve muscle performance and motor function, To improve gait and locomotor functions Therapeutic Exercise to Include: Strength training, Gait and locomotor training For the Purpose of:: Other Other: tomaintain functional ability. Please do not hesitate to contact me at [phone] by phone or if you have questions or concerns regarding this new plan of care! Sincerely, Jaylon Hurtado, DPT, OCS, CSCS
--- NOTE | 2019-08-11 16:13 | HP.PTREVAL ---
Shivam Arroyo MD, It has been my pleasure to treat JENNIFER CORONA over the last 83 visits for PD. Please see the progress note below for an update on the physical therapy plan of care! Subjective: Doing OK. Bumped up carb-levo and brought new script from doctor to try and get him walking. Doing exercises at home without issue. Objective/Function: No major changes to patients ROM R strength in LE. Still tight in B gastroc to -10 active DF. Limited aROM inv adn eversion but functional. Knee aROM if full but tight in HS to -20 90/90 test. Hard time pushing with L UE today to help stand, can push down with a few pounds pressure on ball but hard to control direction. Poor motor control adn awareness of L UE. Functional: sit to stand 5x today with Min A at top of movement to gain balance as he tends posterior. Also tactile cues on L UE. Stood 20 seconds today at most without assist but hunched over, knees together adn bent knees and hips about 20 degrees adn looking at ground. Needs assist for safety adn cues to keep weight over KUSH. Needed min to mod A to stand for the most part and max A for pivot trasnfer due to inability to control appropriately the movements and weight shifts. no improvement so far with meds. Pt has not been able to walk functionally with wh walker during his tenure in here and Likely will not unless the new meds make a big difference. He is appropriate for maintenance therapy and to keep our eyes on how he does with new dosage. Questionable prognosis for improvement but appropriate to monitor and maintain. Plan Plan: Continue POC shant beal week x 6 weeks. Will increase frequency if new meds show any hope for improved mobility. Mary ttempt to decrease to monthly at end of August if not showing progress. Goals Goal 1:: Maintain current level of functional ability at home (at last recheck) while weaning off of PT to HEP(CGA to Min A transfer, stand 30 sec without BW weight shifting.) Goal Time Frame: 6-8 Weeks Goal Progress: Progressing, approp 6more Goal 2:: Stand at platform walker 2 minutes with only assist of putting L UE onto platform Goal Time Frame: 6-8 Weeks Goal Progress: Not Progressing Goal 3:: Maintain ability to transfer sit to stand with CGA to aid in home transfers Goal Time Frame: 6-8 Weeks Goal Progress: needing Min today, approp Anticipated Interventions Patient/Client Instruction: Educate patient on: Condition, Plan of Care For the Purpose of:: To improve muscle performance and motor function, To improve gait and locomotor functions Therapeutic Exercise to Include: Strength training, Gait and locomotor training For the Purpose of:: Other Other: tomaintain functional ability. Please do not hesitate to contact me at [phone] by phone or if you have questions or concerns regarding this new plan of care! Sincerely, Jaylon Hurtado, DPT, OCS, CSCS
--- NOTE | 2019-11-26 12:46 | HP.PTDCNRP_ITS ---
JENNIFER CORONA was seen in my office for initial evaluation on . The following Plan of Care was established for this patient: Patient/Client Instruction: Educate patient on: Condition, Plan of Care For the Purpose of:: To improve muscle performance and motor function, To improve gait and locomotor functions Therapeutic Exercise to Include: Strength training, Gait and locomotor training For the Purpose of:: Other Other: tomaintain functional ability. This patient was last seen in our office 08/25/19. Pertinent comments regarding their Physical therapy will appear below: Pt seen 84 visits overall for his mobility post head injury and stroke. His has called me and told me they are sheltering in place due to the virus . Saw neurologist jenifer [place] [facility] [place] been ordered. Will discontinue current chart at this time. At this point I will be discontinuing this patient from physical therapy. I would be happy to see this patient again in the future if found appropriate by the physician. Thank you! Jaylon Hurtado, DPT, OCS, CSCS
== END 2019-08-28 19:00 | disposition home or self-care (01) ==
LOC: SP 14:00
PROVIDERS: Family Provider Family Medicine Geriatric Medicine; PCP Family Medicine Geriatric Medicine; Referring Provider Psychiatry & Neurology Neurology; Visit Provider Psychiatry & Neurology Neurology
DX: R47.1 Dysarthria and anarthria (principal); R53.1 Weakness; R26.89 Other abnormalities of gait and mobility; I69.398 Other sequelae of cerebral infarction; G20 Parkinson's disease; G40.909 Epilepsy, unspecified, not intractable, without status epilepticus
CPT/HCPCS: 92507; 97110; 97164; 97530

== ENCOUNTER → 2019-12-14 11:21 | Outpatient (CLI) | payer MEDICARE, SELFPAY ==
--- NOTE | 2019-12-14 11:32 | MRI_ITS ---
STUDY: MRI BRAIN WITHOUT CONTRAST REASON FOR EXAM: Male, 74 years old. hemiplegia,hemiparesis s/p infarct affecting left side, new left sided weakness; hx prior tumor removal, bleed and flap surgery TECHNIQUE: Standardized multiplanar fat and water weighted pulse sequences were obtained. COMPARISON: 11/12/2018 FINDINGS: There is moderate cerebral atrophy with widening of the extra-axial spaces and ventricular dilatation. There are multiple white matter hyperintensities, distributed throughout the deep white matter tracts of the cerebral hemispheres, consistent with moderate chronic white matter ischemic changes. There is no evidence for recent intracranial ischemia or other cause of cytotoxic edema on diffusion weighted imaging (DWI). No change in the hemosiderin staining or calcification at the right parietal lobe at the site of resection. Normal bilateral basal ganglia. Normal thalami. There is no extra-axial fluid accumulation. Normal flow voids within the major intracranial circulation suggesting patency by spin echo criteria. Normal sella turcica, pituitary gland, infundibular stalk, optic chiasm and hypothalamus. Normal tectal plate and pineal gland. Normal midbrain, annie and medulla. Normal cerebellum. Normal basal cisterns. Normal bilateral temporal bones. Normal bilateral internal auditory canals. No demonstrated orbital abnormality, within the constraints of a routine brain study. Normal visualized paranasal sinuses. Status post right parietal craniectomy which is unchanged. Normal visualized soft tissue structures. Normal visualized upper cervical spine. MRI/Brain without Contrast IMPRESSION: No change from 11/12/2018. Electronically Signed: Estuardo Bacon MD at 12:46 EDT Tel , Service support ,
--- NOTE | 2019-12-14 12:34 | ECHOD_ITS ---
Reason For Study: HYPERLIPIDEMIA Procedure This was a 2D Doppler, Color Flow transthoracic echocardiogram. The study was technically difficult. PT scanned in supine position. Unable to position for imaging due to CVA. Exam performed in department. Left Ventricle Normal LV size. Left ventricular systolic function is normal. The estimated ejection fraction is 65 %. Stage 1 diastolic dysfunction. No regional wall motion abnormalities noted. Right Ventricle Normal RV size. Normal systolic function. Atria Normal left atrium. Normal right atrium. Bubble contrast study negative for right to left interatrial shunt. Mitral Valve Normal mitral valve. Tricuspid Valve Normal tricuspid valve. Mild tricuspid valve insufficiency. Pulmonary artery systolic pressure is 28 mmHg. Aortic Valve Trisinus/trileaflet aortic valve. Moderate focal aortic valve calcification. Mild (1+) aortic valve insufficiency. Pulmonic Valve Normal pulmonic valve. Great Vessels Normal aortic root. The pulmonary artery is normal size. Normal inferior vena cava. Pericardium/Pleural No pericardial effusion. Medication 22 gauge I.V. with prn adaptor inserted into right arm. Performed a rapid injection of agitated mix of 9 cc saline and 1cc air to assess for atrial septal defect. MMode/2D Measurements & Calculations LVIDd: 4.5 cm IVSd: 1.0 cm Ao root diam: 3.3 cm LVIDs: 2.9 cm LVPWd: 0.99 cm RVDd: 2.9 cm FS: 35.6 % LAV(MOD-bp): 48.1 ml LA A4 area: 16.2 cm2 LA dimension(2D): 3.2 cm LAV(MOD-bp) Indexed: 25.9 ml/m2 LAV(MOD-sp2): 48.1 ml LAV(MOD-sp4): 46.8 ml RA A4 area: 10.7 cm2 Doppler Measurements & Calculations MV E max ja: 55.0 cm/sec Lat Peak E' Ja: 6.6 cm/sec Med Peak E' Ja: 5.4 cm/sec MV A max ja: 87.6 cm/sec E/E' lat: 8.3 E/E' med: 10.1 MV E/A: 0.63 Ao V2 max: 166.2 cm/sec AI max ja: 343.2 cm/sec LV V1 max: 85.4 cm/sec Ao max P.0 mmHg AI max P.1 mmHg LV V1 max P.9 mmHg Ao V2 mean: 108.7 cm/sec AI dec slope: 252.7 cm/sec2 LV V1 mean P.5 mmHg Ao mean P.4 mmHg AI P1/2t: 397.7 msec LV V1 mean: 57.9 cm/sec Ao V2 VTI: 35.0 cm LV V1 VTI: 19.4 cm PA V2 max: 110.6 cm/sec TR max ja: 245.1 cm/sec TR max P.2 mmHg Interpretation Summary Normal LV size. Left ventricular systolic function is normal. The estimated ejection fraction is 65 %. Stage 1 diastolic dysfunction. Ordering Physician: Shivam Arroyo Referring Physician: José Funez Chi Performed By: Estela Kelly, CATHRYN, RVT
--- NOTE | 2019-12-14 13:53 | CDU_ITS ---
Reason For Study: HLD Rt. Velocities/BP Lt. Velocities/BP Prox CCA 76/12 cm/sec. Prox CCA 87/17 cm/sec. Mid CCA 87/15 cm/sec. Mid CCA 109/19 cm/sec. Dist CCA 54/10 cm/sec. Dist CCA 78/17 cm/sec. Prox ICA 215/50 cm/sec. Prox ICA 102/39 cm/sec. Mid ICA 196/34 cm/sec. Mid ICA 100/26 cm/sec. Dist ICA 102/19 cm/sec. Dist ICA 54/18 cm/sec. Rt. ICA/CCA = 2.5. Lt. ICA/CCA = .9. Prox ECA 105/10 cm/sec. Prox ECA 129/36 cm/sec. Rt. Vert. 67/21 cm/sec. Lt. Vert. 31/7 cm/sec. Right Extracranial There is homogeneous, smooth atherosclerotic plaque noted in the right common carotid artery. There is heterogeneous, irregular atherosclerotic plaque noted in the right internal carotid artery. There is heterogeneous, irregular atherosclerotic plaque noted in the right external carotid artery. Antegrade flow is noted in the right vertebral artery. There is heterogeneous, irregular atherosclerotic plaque noted in the right bulb. Left Extracranial There is heterogeneous, smooth atherosclerotic plaque noted in the left common carotid artery. There is heterogeneous, irregular atherosclerotic plaque noted in the left internal carotid artery. There is heterogeneous, irregular atherosclerotic plaque noted in the left external carotid artery. Antegrade flow is noted in the left vertebral artery. There is heterogeneous, irregular atherosclerotic plaque noted in the left bulb. Procedure Carotid Duplex [id number]. The study was technically difficult. Exam performed in department. Interpretation Summary Moderate (50-69%) stenosis right extracranial internal carotid. Mild (<50%) stenosis left extracranial internal carotid. Flow within the vertebral arteries is antegrade bilaterally. Ordering Physician: Shivam Arroyo Referring Physician: OFELIA MCINTOSH CHI Performed By: Aixa Teran, CATHRYN, RVT
== END ==
PROVIDERS: PCP Family Medicine Geriatric Medicine; Referring Provider Psychiatry & Neurology Neurology; Visit Provider Psychiatry & Neurology Neurology
DX: I65.23 Occlusion and stenosis of bilateral carotid arteries (principal); I51.89 Other ill-defined heart diseases
CPT/HCPCS: 70551; 93306; 93880; A4216

== ENCOUNTER → 2019-12-16 09:40 | Outpatient (CLI) | payer MEDICARE, SELFPAY ==
[2019-12-16 16:52] LABS: Absolute Lymphocyte Count 1.27 X10^3/uL (0.83-4.51); Absolute Neutrophil Count 5.1 X10^3/uL (2.0-7.7); Basophil# 0.05 X10^3/uL; Basophil% 0.7 % (0-1); Eosinophil# 0.16 X10^3/uL; Eosinophils% 2.1 % (0-5); Hemoglobin 14.9 g/dL (13.0-16.5); Lymphocyte # 1.27 X10^3/ul (4.0); Mean Corp Hgb Conc 32.4 g/dL (32-36); Mean Corpuscular Volume 95.8 fL (80-94); Mean Platelet Vol. 10.9 fl (6.2-12.0); Monocyte# 0.88 X10^3/uL; Monocyte% 11.7 % (0-10); NRBC Flagged by Analyzer 0 % (0-5); Neutrophil # 5.11 X10^3/uL (2.7-7.7); Neutrophil % 68.2 % (47-70); Platelet Count 343 K/mm3 (150-450); RBC Distribution Width CV 12.7 % (11.6-14.6); RBC Distribution Width SD 45.1 fl (35.1-43.9); White Blood Count 7.5 K/mm3 (4.4-11.0)
[2019-12-16 17:21] LABS: Vitamin D,25 Hydroxy 39.8 ng/mL
[2019-12-16 17:29] LABS: AST(SGOT) 12 U/L (15-37); Alanine Aminotransfer ALT/SGPT 14 U/L (16-61); Alkaline Phosphatase 82 U/L (45-117); Anion Gap 5 (5-15); BUN 20 mg/dL (7-18); Calcium,Total 9.8 mg/dL (8.5-10.1); Chloride 97 mmol/L (98-107); EST Glomerular Filtration Rate 77 mL/min (>60); Est Glom Filt Rate - Afr Amer 93 mL/min (>60); Globulin 4.2 g/dL (2.2-4.2); Glucose 93 mg/dL (74-106); Protein, Total 8.2 g/dL (6.4-8.2); Sodium Level 135 mmol/L (136-145); Thyroid Stim Hormone (TSH) 1.45 uIU/mL (0.358-3.74)
== END ==
PROVIDERS: PCP Family Medicine Geriatric Medicine; Visit Provider Family Medicine Geriatric Medicine
DX: I10 Essential (primary) hypertension (principal); E55.9 Vitamin D deficiency, unspecified
CPT/HCPCS: 36415; 80053; 82306; 84443; 85025

== ENCOUNTER → 2020-02-16 14:14 | Outpatient (CLI) | payer MEDICARE, SELFPAY ==
--- NOTE | 2020-02-16 14:17 | RAD_ITS ---
STUDY: X-RAY - LEFT ANKLE REASON FOR EXAM: Male, 75 years old. L Ankle pain TECHNIQUE: 3 view(s) of the ankle. COMPARISON: None. FINDINGS: No acute fracture, dislocation or osseous destruction. Moderate joint space narrowing. No significant productive changes. No significant soft tissue swelling. IMPRESSION: No acute fracture or dislocation. Moderate arthrosis. Electronically Signed: Shaheen Cooper, at 17:45 EDT Tel , Service support , RAD/Ankle min 3 Views
== END ==
PROVIDERS: PCP Family Medicine Geriatric Medicine; Referring Provider Family Medicine Geriatric Medicine; Visit Provider Family Medicine Geriatric Medicine
DX: M19.072 Primary osteoarthritis, left ankle and foot (principal)
CPT/HCPCS: 73610

== ENCOUNTER → 2020-03-23 13:04 | Outpatient (CLI) | payer MEDICARE, SELFPAY ==
[2020-03-23 17:05] LABS: Absolute Lymphocyte Count 1.53 X10^3/uL (0.83-4.51); Absolute Neutrophil Count 4.3 X10^3/uL (2.0-7.7); Basophil# 0.06 X10^3/uL; Basophil% 0.9 % (0-1); Eosinophil# 0.26 X10^3/uL; Eosinophils% 3.9 % (0-5); Hematocrit 44.2 % (40-54); Hemoglobin 14.3 g/dL (13.0-16.5); Lymphocyte # 1.53 X10^3/ul (4.0); Lymphocyte % 22.8 % (19-41); Mean Corp Hgb Conc 32.4 g/dL (32-36); Mean Corpuscular Hgb 30.7 pg (27.0-32.0); Mean Corpuscular Volume 94.8 fL (80-94); Mean Platelet Vol. 10.3 fl (6.2-12.0); Monocyte# 0.59 X10^3/uL; Monocyte% 8.8 % (0-10); NRBC Flagged by Analyzer 0 % (0-5); Neutrophil # 4.25 X10^3/uL (2.7-7.7); Neutrophil % 63.3 % (47-70); Platelet Count 347 K/mm3 (150-450); RBC Distribution Width CV 13.2 % (11.6-14.6); RBC Distribution Width SD 45.8 fl (35.1-43.9); Red Blood Count 4.66 M/mm3 (4.6-6.2); White Blood Count 6.7 K/mm3 (4.4-11.0)
[2020-03-23 17:13] LABS: Vitamin D,25 Hydroxy 42.6 ng/mL
[2020-03-23 17:34] LABS: AST(SGOT) 12 U/L (15-37); Alanine Aminotransfer ALT/SGPT 18 U/L (16-61); Albumin, Serum 3.9 g/dL (3.2-5.0); Alkaline Phosphatase 77 U/L (45-117); Anion Gap 6 (5-15); BUN 19 mg/dL (7-18); BUN/Creat Ratio 18.4 RATIO (10-20); Calcium,Total 9.3 mg/dL (8.5-10.1); Chloride 101 mmol/L (98-107); Creatinine, Serum 1.03 mg/dL (0.70-1.30); EST Glomerular Filtration Rate 74 mL/min (>60); Est Glom Filt Rate - Afr Amer 90 mL/min (>60); Globulin 3.8 g/dL (2.2-4.2); Glucose 136 mg/dL (74-106); Protein, Total 7.7 g/dL (6.4-8.2); Sodium Level 136 mmol/L (136-145); Thyroid Stim Hormone (TSH) 1.05 uIU/mL (0.358-3.74)
--- NOTE | 2020-03-23 17:35 | SP.MBSS_ITS ---
Modified Barium Swallow - Patient Information Study Date: 03/23/20 Study Time: 14:00 Direct Billable Minutes: 70 Total Minutes procedure & reportin Diagnosis: Dysphagia (R13.12) Referring Physician: José Funez Chi Reason for Referral: The patient is a 75 year old male referred for a modified barium swallow (MBS) study to objectively assess the Patients oropharyngeal swallow function under fluoroscopy secondary to the diagnosis of Parkinson?s disease in combination with a prior subdural hematoma with midline shift status post right parietal craniotomy (2015). Medical History: Parkinson?s disease, subdural hematoma with midline shift status post right parietal craniotomy (05/13/2016), subarachnoid hematoma, benign cerebral tumor resection (1991), chronic dysphagia status post percutaneous endoscopic gastrostomy tube placement (since removed), gastroesophageal reflux disease, chronic seizures, hypertension, hyperlipidemia. - Penetration-Aspiration Scale Score Thin Liquid Result: 8= enters airway/below vocal folds/no effort Comment: Grade IV Thin Liquid Trial 2 Result: 8= enters airway/below vocal folds/no effort Comment: Grade III [place] Thick Liquid Result: 2= enter airway/above vocal folds/ejected [place] Thick Liquid Trial 2 Result: 8= enters airway/below vocal folds/no effort Comment: Grade III [place] Thick Liquid Trial 3 Result: 6= enters airway/below vocal folds/ejected Comment: Grade III [place] Thick Liquid Trial 4 Result: 6= enters airway/below vocal folds/ejected Comment: Grade III Pudding Result: 5= enters airways/contacts vocal folds/not ejected [place] Thick Liquid Trial 5 Result: 8= enters airway/below vocal folds/no effort Comment: Grade III [place] Thick Liquid Trial 6 Result: 3= enters airways/above vocal folds/not ejected [place] Thick Liquid Result: 8= enters airway/below vocal folds/no effort Comment: Grade III [place] Thick Liquid Trial 2 Result: 6= enters airway/below vocal folds/ejected Comment: Grade III [place] Thick Liquid Trial 3 Result: 8= enters airway/below vocal folds/no effort Comment: Grade III - Oral Phase Labial Seal: Escape beyond mid-chin Tongue Control During Bolus Hold: Escape to lateral buccal cavity/floor of mouth Bolus Preparation/Mastication: Minimal chewing/mashing with majority of bolus unchewed Bolus Transport/Lingual Motion: Repetitive/disorganized tongue motion Oral Residue: Residue collection on oral structures - Pharyngeal Phase Initiation of Pharyngeal Swallow: Bolus head in valleculae Soft Palate Elevation: Trace column of contrast/air between soft palate and pharyngeal wall Laryngeal Elevation: Partial superior movement thyroid cart/partial apprx aryt- epig petiole Anterior Hyoid Excursion: Partial anterior movement Epiglottic Movement: Partial inversion Laryngeal Vestibule Closure at Height of Swallow: Incomplete; narrow column of air/contrast in laryngeal vestibule Pharyngeal Stripping Wave: Present - diminished Pharyngoesophageal Segment Opening: Parital distension and partial duration; parital obstruction of flow Tongue Base Retraction: Wide column of contrast between tongue base & post. pharyngeal wall Pharyngeal Residue: Collection of residue within or on pharyngeal structures - Diagnosis/Impression Diagnosis: Dysphagia (R13.12) Impression: The patient presents with moderate to severe oropharyngeal dysphagia (DSRS: 5; SPS: 6) with grade III SILENT aspiration of thin, nectar, and honey thickened liquids in addition to moderate to marked pharyngeal dysmotility secondary to the diagnosis of Parkinson?s disease in combination with a prior subdural hematoma with midline shift status post right parietal craniotomy (2016), which is notably worse than his prior study. Of note, all trials were complicated by his inability to clear the laryngeal vestibule of contrast from previous trials, along with clearance of contrast from the subglottic region following aspiration events with a cued cough. His current level of function is likely correlated with his deconditioning following the interruption in physical and occupational therapy, and may not represent his oropharyngeal swallow function if said conditioning improves. We discussed the findings and recommendations following the study at length, with no clear improvement in intake tolerance across all viscosities aspirated, with the patient and the patients family opting to proceed with thin liquid intake after discussing benefit and risks associated with and without use. - Recommendations Diet: Puree Textures, Pudding-thick Liquids Comment: After discussing with the patient and famliy, we will proceed against diet texture recommendations at current level of care Compensatory Strategies: Small Bites, Small Sips, Slow Rate, Sitting upright, Remain sitting upright for 30 minutes after PO intake Supervision: Assist as needed Recommend Repeat Modified Barium Swallow: Yes Need for Skilled Speech Therapy Services: Yes - Image Count: 3,[phone] - Status Active ST Patient: Not Active - Contact Information [facility]:: Clem Kam M.A., [employer], CBIS MBSImP Certified, LSVT Certified [facility]-Language [facility]ology Department Email: [email or web address]
[2020-03-30 16:32] LABS: KEPPRA (LEVETIRACETAM) 37.2 ug/mL (10.0-40.0)
== END ==
PROVIDERS: PCP Family Medicine Geriatric Medicine; Referring Provider Family Medicine Geriatric Medicine; Visit Provider Family Medicine Geriatric Medicine
DX: G40.109 Localization-related (focal) (partial) symptomatic epilepsy and epileptic syndromes with simple partial seizures, not intractable, without status epilepticus (principal); R13.10 Dysphagia, unspecified; Z87.898 Personal history of other specified conditions; E55.9 Vitamin D deficiency, unspecified; I10 Essential (primary) hypertension
CPT/HCPCS: 36415; 74230; 80053; 80177; 82306; 82542; 84443; 85025; 92611

== ENCOUNTER → 2020-09-28 15:01 | Outpatient (CLI) | payer MEDICARE, SELFPAY ==
[2020-09-28 16:13] LABS: Absolute Lymphocyte Count 1.69 X10^3/uL (0.83-4.51); Absolute Neutrophil Count 4.4 X10^3/uL (2.0-7.7); Basophil# 0.05 X10^3/uL; Basophil% 0.7 % (0-1); Eosinophil# 0.25 X10^3/uL; Eosinophils% 3.5 % (0-5); Hematocrit 43.4 % (40-54); Hemoglobin 14.2 g/dL (13.0-16.5); Lymphocyte # 1.69 X10^3/ul (4.0); Lymphocyte % 23.3 % (19-41); Mean Corp Hgb Conc 32.7 g/dL (32-36); Mean Corpuscular Hgb 31.3 pg (27.0-32.0); Mean Corpuscular Volume 95.6 fL (80-94); Mean Platelet Vol. 9.9 fl (6.2-12.0); Monocyte# 0.83 X10^3/uL; Monocyte% 11.5 % (0-10); NRBC Flagged by Analyzer 0 % (0-5); Neutrophil # 4.39 X10^3/uL (2.7-7.7); Neutrophil % 60.6 % (47-70); Platelet Count 343 K/mm3 (150-450); RBC Distribution Width SD 45.1 fl (35.1-43.9); Red Blood Count 4.54 M/mm3 (4.6-6.2); White Blood Count 7.2 K/mm3 (4.4-11.0)
[2020-09-28 16:48] LABS: ALB/GLOB Ratio 0.9 RATIO (0.9-2.4); AST(SGOT) 10 U/L (15-37); Alanine Aminotransfer ALT/SGPT 14 U/L (16-61); Albumin, Serum 3.8 g/dL (3.2-5.0); Alkaline Phosphatase 75 U/L (45-117); Anion Gap 4 (5-15); BUN 20 mg/dL (7-18); BUN/Creat Ratio 17.7 RATIO (10-20); Calcium,Total 9.5 mg/dL (8.5-10.1); Chloride 100 mmol/L (98-107); Creatinine, Serum 1.13 mg/dL (0.70-1.30); EST Glomerular Filtration Rate 67 mL/min (>60); Est Glom Filt Rate - Afr Amer 81 mL/min (>60); Globulin 4.1 g/dL (2.2-4.2); Glucose 107 mg/dL (74-106); Potassium 3.8 mmol/L (3.5-5.1); Protein, Total 7.9 g/dL (6.4-8.2); Sodium Level 135 mmol/L (136-145); Thyroid Stim Hormone (TSH) 1.32 uIU/mL (0.358-3.74)
[2020-09-28 17:13] LABS: Vitamin D,25 Hydroxy 30.4 ng/mL
== END ==
PROVIDERS: PCP Family Medicine Geriatric Medicine; Visit Provider Family Medicine Geriatric Medicine
DX: E55.9 Vitamin D deficiency, unspecified (principal); I10 Essential (primary) hypertension
CPT/HCPCS: 36415; 80053; 82306; 84443; 85025

== ENCOUNTER → 2020-12-05 12:46 | Outpatient (CLI) | payer MEDICARE, SELFPAY ==
[2020-12-09 07:57] LABS: KEPPRA (LEVETIRACETAM) 29.6 ug/mL (10.0-40.0); Lamotrigine (Lamictal) Level 16.9 ug/mL (2.0-20.0)
== END ==
PROVIDERS: PCP Family Medicine Geriatric Medicine; Referring Provider Psychiatry & Neurology Neurology; Visit Provider Psychiatry & Neurology Neurology
DX: G40.209 Localization-related (focal) (partial) symptomatic epilepsy and epileptic syndromes with complex partial seizures, not intractable, without status epilepticus (principal)
CPT/HCPCS: 36415; 80177; 82542

== ENCOUNTER → 2021-01-02 16:03 | Outpatient (CLI) | payer MEDICARE, SELFPAY ==
[2021-01-02 17:06] LABS: Absolute Lymphocyte Count 1.13 X10^3/uL (0.83-4.51); Absolute Neutrophil Count 4.2 X10^3/uL (2.0-7.7); Basophil# 0.04 X10^3/uL; Basophil% 0.6 % (0-1); Eosinophil# 0.08 X10^3/uL; Eosinophils% 1.3 % (0-5); Hematocrit 42.5 % (40-54); Hemoglobin 13.7 g/dL (13.0-16.5); Lymphocyte # 1.13 X10^3/ul (0.83-4.51); Lymphocyte % 18.1 % (19-41); Mean Corp Hgb Conc 32.2 g/dL (32-36); Mean Corpuscular Hgb 30.7 pg (27.0-32.0); Mean Corpuscular Volume 95.3 fL (80-94); Mean Platelet Vol. 10.2 fl (6.2-12.0); Monocyte# 0.77 X10^3/uL; Monocyte% 12.3 % (0-10); NRBC Flagged by Analyzer 0 % (0-5); Neutrophil # 4.22 X10^3/uL (2.7-7.7); Neutrophil % 67.4 % (47-70); Platelet Count 392 K/mm3 (150-450); RBC Distribution Width CV 12.8 % (11.6-14.6); RBC Distribution Width SD 45.3 fl (35.1-43.9); Red Blood Count 4.46 M/mm3 (4.6-6.2); White Blood Count 6.3 K/mm3 (4.4-11.0)
[2021-01-02 17:27] LABS: ALB/GLOB Ratio 0.9 RATIO (0.9-2.4); AST(SGOT) 15 U/L (15-37); Alanine Aminotransfer ALT/SGPT 13 U/L (16-61); Albumin, Serum 3.9 g/dL (3.2-5.0); Alkaline Phosphatase 84 U/L (45-117); Anion Gap 5 (5-15); BUN 18 mg/dL (7-18); BUN/Creat Ratio 16.1 RATIO (10-20); Calcium,Total 9.4 mg/dL (8.5-10.1); Chloride 99 mmol/L (98-107); Creatinine, Serum 1.12 mg/dL (0.70-1.30); EST Glomerular Filtration Rate 67 mL/min (>60); Est Glom Filt Rate - Afr Amer 82 mL/min (>60); Globulin 4.2 g/dL (2.2-4.2); Glucose 95 mg/dL (74-106); Protein, Total 8.1 g/dL (6.4-8.2); Sodium Level 135 mmol/L (136-145); Thyroid Stim Hormone (TSH) 0.66 uIU/mL (0.358-3.74)
[2021-01-02 18:18] LABS: M R Staph aureus DNA By PCR Negative (Negative); Probe Check PASS; Specimen Processing Control PASS; Staph aureus DNA By PCR NEGATIVE (Negative)
== END ==
PROVIDERS: PCP Family Medicine Geriatric Medicine; Visit Provider Family Medicine Geriatric Medicine
DX: G93.40 Encephalopathy, unspecified (principal); L03.119 Cellulitis of unspecified part of limb
CPT/HCPCS: 36415; 80053; 84443; 85025; 87070; 87205; 87640

== ENCOUNTER → 2021-01-03 | Outpatient (CLI) | payer MEDICARE, SELFPAY | END | disposition home or self-care (01) | LOC: LABSPEC 11:52 | PROVIDERS: PCP Family Medicine Geriatric Medicine; Visit Provider Family Medicine Geriatric Medicine | DX: N39.0 Urinary tract infection, site not specified (principal) | CPT/HCPCS: 36415; 87077; 87086; 87088 ==

== ENCOUNTER 2021-01-09 06:33 | Emergency (ER) | payer MEDICARE, SELFPAY ==
[2021-01-09 06:34] VITALS: BP 127/113; PULSE 98; RESP 16; TEMP 36.7; O2SAT 96; BMI 21.4
--- NOTE | 2021-01-09 07:06 | CT_ITS ---
STUDY: CT BRAIN WITHOUT CONTRAST REASON FOR EXAM: Male, 76 years old. Fall RADIATION DOSAGE (If Supplied By Facility): CTDIvol = ( 44.99 ) mGy, DLP = ( 829.85 ) mGycm TECHNIQUE: Transaxial CT imaging of the brain was performed without administration of intravenous contrast material. Individualized dose optimization techniques were used for this CT. COMPARISON: 04/02/18 FINDINGS: There are stable gyral calcifications in the right frontotemporal region. There is no acute bleed or infarct. There are stable chronic ischemic and atrophic changes. The ventricles are normal in configuration. There is no hydrocephalus. The visualized paranasal sinuses are clear. The mastoid air cells are well aerated. There is no skull fracture. There are stable postsurgical changes from a right-sided craniectomy. CT/Brain/Head without Contrast IMPRESSION: Stable chronic ischemic and atrophic changes. No acute intracranial abnormality. Stable postsurgical changes from a right sided craniotomy. Electronically Signed: Diaz Alex MD at 8:03 EDT Tel , Service support ,
--- NOTE | 2021-01-09 07:06 | CT_ITS ---
EXAM: CT CERVICAL SPINE WITHOUT INTRAVENOUS CONTRAST CLINICAL INDICATION: fall, decreased level of consciousness, unable to communicate, multiple falls recently TECHNIQUE: Helically acquired images were obtained of the cervical spine without intravenous contrast. 2D reformatted images were reviewed. This CT exam was performed using one or more of the following dose reduction techniques: automated exposure control, adjustment of the mA and/or kV according to patient size, and/or use of iterative reconstruction technique. This report was created using [employer] report generation technology. COMPARISON: None. FINDINGS: VERTEBRAE: Anterior spondylosis at multiple cervical levels. No fracture. No traumatic subluxation. No discrete lytic or blastic abnormality. Normal alignment. Normal craniocervical junction and cervicothoracic junction. DISCS/SPINAL CANAL/NEURAL FORAMINA: Disc space narrowing at C3-C4, C4-C5 and C5-C6. SOFT TISSUES: Unremarkable. No prevertebral soft tissue swelling. VASCULATURE: Bilateral carotid atherosclerosis. LYMPH NODES: Unremarkable. No cervical adenopathy. NASOPHARYNX: Heterogeneous fluid identified within the oropharynx and hypopharynx. LUNG APICES: Fibrotic changes of the bilateral upper lungs, right more than left. CT/Spine Cervical without Contras IMPRESSION: 1. No acute findings in the cervical spine. 2. Fluid within the oropharynx and hypopharynx Electronically Signed: Zeke Ren MD ([place]) at 8:11 EDT , Service support ,
--- NOTE | 2021-01-09 07:06 | EKG12_ITS ---
Test Reason : NEURO Blood Pressure : / mmHG Vent. Rate : 090 BPM Atrial Rate : 090 BPM P-R Int : 164 ms QRS Dur : 100 ms QT Int : 352 ms P-R-T Axes : 056 064 029 degrees QTc Int : 430 ms Normal sinus rhythm Normal ECG When compared with ECG of 02-APR-2018 16:52, No significant change was found Confirmed by GHADA AGUILAR, KAYLAH ([id number]), publications editor BERENICE TUCKER ([id number]) on 01/13/2021 10:33:12 AM Referred By: MR Confirmed By:KAYLAH URRUTIA MD
[2021-01-09 07:12] LABS: Absolute Lymphocyte Count 2.04 X10^3/uL (0.83-4.51); Absolute Neutrophil Count 6.5 X10^3/uL (2.0-7.7); Basophil# 0.05 X10^3/uL; Basophil% 0.5 % (0-1); Eosinophil# 0.24 X10^3/uL; Eosinophils% 2.5 % (0-5); Hematocrit 45.8 % (40-54); Hemoglobin 15.1 g/dL (13.0-16.5); Lymphocyte # 2.04 X10^3/ul (0.83-4.51); Lymphocyte % 20.9 % (19-41); Mean Corpuscular Hgb 31.1 pg (27.0-32.0); Mean Corpuscular Volume 94.4 fL (80-94); Mean Platelet Vol. 9.8 fl (6.2-12.0); Monocyte# 0.88 X10^3/uL; NRBC Flagged by Analyzer 0 % (0-5); Neutrophil # 6.51 X10^3/uL (2.7-7.7); Neutrophil % 66.6 % (47-70); Platelet Count 394 K/mm3 (150-450); RBC Distribution Width CV 12.8 % (11.6-14.6); RBC Distribution Width SD 44.4 fl (35.1-43.9); Red Blood Count 4.85 M/mm3 (4.6-6.2); White Blood Count 9.8 K/mm3 (4.4-11.0)
[2021-01-09 07:15] LABS: Bedside Glucose 98 mg/dL (70-110)
--- NOTE | 2021-01-09 07:16 | EDS_ITS ---
HPI History of Present Illness Chief Complaint: Neuro S/Sx Narrative Narrative: of stroke, traumatic brain injury, severe Parkinson'sPatient presenting for evaluation secondary to a fall out of bed and a generalized functional decline. Patient has an underlying history Per the patient's , he has been having some increasing.. This morning at about 6:30 in the morning she states that he fell out of bed. The patient does report that he hit his head, unknown whether or not he lost consciousness. Patient is not on any sort of anticoagulants he does take aspirin. Patient denies any new neurologic symptoms, although he has baseline left-sided weakness secondary to a stroke. co gnitive and communicative issues recently. She feels that he is dehydrated because his Parkinson's is so severe that he cannot really give himself water and he only drinks when she gives him water. He has recently been dealing with some issues with infections, he is on the tail end of a infected wound on his left abdul as well as a urinary tract infection He denies that he felt as if he injured himself when he fell out of bed. Review of systems otherwise negative. [facility] Medical History Back pain Brain tumor Difficulty balancing HTN (hypertension) Hx of traumatic subdural hematoma Limb weakness Seizures Shoulder pain Stroke/cerebrovascular accident Home Medications lamotrigine 200 mg PO BID 08/29/15 [History Last Taken 02/10/18] oxcarbazepine 300 mg PO BID 09/22/17 [History Last Taken 02/10/18] carbidopa ER 50 mg-levodopa 200 mg tablet,extended release 1 tab PO TIDAC 10/18/17 [History Last Taken 02/10/18] denosumab 60 mg/mL subcutaneous syringe 60 mg SC X1 10/18/17 [History Last Taken 12/05/17] levetiracetam 1,000 mg tablet 1,000 mg PO QHS 10/18/17 [History Last Taken 02/09/18] amlodipine 7.5 mg PO DAILY 02/10/18 [History Last Taken 02/10/18] famotidine 40 mg PO DAILY 02/10/18 [History Last Taken 02/10/18] levetiracetam 750 mg PO DAILY 02/10/18 [History Last Taken 02/10/18] polyethylene glycol 3350 [Miralax] 17 g PO DAILY 02/10/18 [History Last Taken 02/09/18] [id number]-WW-lycopen-lutein [Centrum Silver Tablet] 1 ea PO DAILY 02/28/18 [History Last Taken Unknown] Allergy/AdvReac Type Severity Reaction Status Date / Time wheat gluten AdvReac Diarrhea Uncoded 01/09/21 06:41 Surgical History H/O brain surgery History of craniotomy Social History Smoking Status: Former smoker alcohol intake: never ROS ROS ED Constitutional Constitutional ED: Denies chills or fever(s) Eyes Eyes: Denies change in vision ENT ENT ED: Denies rhinorrhea Cardiovascular Cardiovascular: Denies chest pain Respiratory/Chest Respiratory/Chest: Denies cough or dyspnea Gastrointestinal Gastrointestinal: Denies nausea or vomiting Genitourinary Genitourinary ED: Denies urinary frequency Musculoskeletal Musculoskeletal: Denies back pain or neck pain Integumentary Reports other Details: Healing wound on the left leg ; Denies rash Neurologic Neurologic: Reports weakness and other Details: Baseline weakness unchanged ; Denies headache(s) EXAM Physical Exam Const Vital Signs: 01/09/21 06:34 01/09/21 06:44 01/09/21 09:14 Temperature 98.1 F 97.8 F Temperature Source Temporal Temporal Pulse Rate 98 89 Respiratory Rate 16 21 H Respiratory Pattern Normal Blood Pressure 127/113 H 133/73 H Blood Pressure Mean 117 93 Pulse Ox 96 97 Oxygen Delivery Method Room Air Room Air Positive well developed Constitutional Narrative: Thin male who appears older than stated age General Appearance ED: well developed HEENT Reports moist mucous membranes HEENT Narrative: Old craniotomy changes on the patient's scalp, no obvious evidence of trauma. Eyes EOMs intact bilaterally Neck supple Neck Narrative: No midline tenderness Chest Wall inspection of chest normal Resp normal respiratory effort and clear to auscultation bilaterally Cardio regular rate, regular rhythm and no murmurs Rate: other Other Details: 2+ radial pulses bilaterally symmetric GI normal to inspection, nondistended, normoactive bowel sounds, non-tender and non-distended Palpation: soft Back/Spine Back/Spine Narrative: No spinal tenderness is noted Extremity Extremity Narrative: No new trauma is noted to the patient's extremities he has old bruising. He has a healing wound on his left abdul with mild surrounding erythema, no evidence of lymphangitic streaking, no induration or fluctuance. Neuro Neuro Narrative: Patient is alert and oriented, he is able to speak albeit extremely difficult to understand. He has spasticity at baseline secondary to his Parkinson's which according to his is unchanged. Sensorium / Orientation: alert Skin Skin Narrative: Left abdul wound as noted above, no other evidence of rashes. Diffuse bruising noted. MDM MDM MDM Narrative Medical decision making narrative: Patient presented secondary to a fall out of bed, no obvious signs of injury or deformity but he did report hitting his head CT imaging of the brain and cervical spine were obtained and were found to be negative for acute injury. Patient's complained that he was having some dehydration issues it may be some increased weakness so a broader work-up was obtained. CBC demonstrates no signs of leukocytosis, chemistry actually shows no electrolyte derangement or signs of dehydration. Urinalysis was found to be negative. I obtained an EKG and a troponin which also were found to be unremarkable. Patient was given 2 L normal saline in the emergency department I do not feel that he requires admission or further observation. Patient and are given reassurance, patient was discharged in stable condition. Lab Data Labs: Laboratory Results - last 24 hr 01/09/21 01/09/21 01/09/21 06:20 06:20 07:13 WBC 9.8 RBC 4.85 Hgb 15.1 Hct 45.8 MCV 94.4 H MCH 31.1 MCHC 33.0 RDW Std Deviation 44.4 H RDW Coeff of [place] 12.8 Plt Count 394 MPV 9.8 Immature Gran % (Auto) 0.500 Neut % (Auto) 66.6 Lymph % (Auto) 20.9 Mobile % (Auto) 9.0 Eos % (Auto) 2.5 Baso % (Auto) 0.5 Absolute Neuts (auto) 6.5 Absolute Lymphs (auto) 2.04 Nucleated RBC % 0 Sodium 136 Potassium 4.0 Chloride 100 Carbon Dioxide 32.0 Anion Gap 4 L BUN 26 H Creatinine 0.86 Estim Creat Clear Calc 63.98 Est GFR (MDRD) Af Amer 111 Est GFR (MDRD) Non-Af 92 BUN/Creatinine Ratio 30.3 H Glucose 96 Calcium 9.7 Troponin I High Sens 10.6 Urine Color Urine Clarity Urine pH Ur Specific [place] Urine Protein Urine Glucose (UA) Urine Ketones Urine Occult Blood Urine Nitrite Urine Bilirubin Urine Urobilinogen Ur Leukocyte Esterase Urine RBC Urine WBC Ur Squamous Epith Cells Urine Bacteria Urine Mucus POC Glucose 98 01/09/21 09:05 WBC RBC Hgb Hct MCV MCH MCHC RDW Std Deviation RDW Coeff of [place] Plt Count MPV Immature Gran % (Auto) Neut % (Auto) Lymph % (Auto) Mobile % (Auto) Eos % (Auto) Baso % (Auto) Absolute Neuts (auto) Absolute Lymphs (auto) Nucleated RBC % Sodium Potassium Chloride Carbon Dioxide Anion Gap BUN Creatinine Estim Creat Clear Calc Est GFR (MDRD) Af Amer Est GFR (MDRD) Non-Af BUN/Creatinine Ratio Glucose Calcium Troponin I High Sens Urine Color Yellow Urine Clarity Clear Urine pH 6.0 Ur Specific [place] 1.020 Urine Protein 30 H Urine Glucose (UA) Normal Urine Ketones 15 H Urine Occult Blood Negative Urine Nitrite Negative Urine Bilirubin Negative Urine Urobilinogen Normal Ur Leukocyte Esterase 25 H Urine RBC 0 SEEN Urine WBC 0-5 SEEN Ur Squamous Epith Cells 0-5 SEEN Urine Bacteria 0 SEEN Urine Mucus 0 SEEN POC Glucose Radiography Diagnostic Testing: Radiology Impression Brain CT 01/09/21 07:06 IMPRESSION: Stable chronic ischemic and atrophic changes. No acute intracranial abnormality. Stable postsurgical changes from a right sided craniotomy. Electronically Signed: Diaz Alex MD at 8:03 EDT Tel , Service support , Cervical Spine CT 01/09/21 07:06 IMPRESSION: 1. No acute findings in the cervical spine. 2. Fluid within the oropharynx and hypopharynx Electronically Signed: Zeke Ren MD ([place]) at 8:11 EDT , Service support , EKG Initial EKG: Attestation: I personally reviewed and interpreted this EKG as follows: (Sinus rhythm at [address] segments normal T waves normal intervals no evidence of acute ischemia or arrhythmia) Discharge Plan Triage Chief Complaint: Neuro S/Sx ED Provider: Sebastian Bess Dx/Rx/DC Orders Clinical Impression: Accidental fall from bed, Parkinson's disease Instructions: ED Mechanical Fall Prescriptions: No Action levetiracetam 1,000 mg tablet 1,000 mg PO QHS RF: 0 lamotrigine 200 MG tablet 200 mg PO BID RF: 0 oxcarbazepine 300 MG tablet 300 mg PO BID RF: 0 carbidopa-levodopa 50-200 mg tablet extended release 1 tab PO TIDAC RF: 0 denosumab 60 mg/mL syringe 60 mg SC X1 RF: 0 famotidine 40 MG tablet 40 mg PO DAILY RF: 0 amlodipine 2.5 MG tablet 7.5 mg PO DAILY RF: 0 levetiracetam 750 MG tablet 750 mg PO DAILY RF: 0 polyethylene glycol 3350 [Miralax] 119 GM Powder 17 g PO DAILY RF: 0 rhkrtdlt-sjs-HD-lycopen-lutein [Centrum Silver] 1 EACH tablet 1 ea PO DAILY RF: 0 Primary Care Provider: José Funez Chi Referrals: José Funez Chi, MD [Primary Care Provider] - As Needed Disposition Disposition: Home, Self Care
[2021-01-09 07:17] VITALS: BMI 21.4
[2021-01-09] MEDS: 0.9% Normal Saline 1,000 ML 1000 ML IV ×2 (07:18→09:28)
[2021-01-09 07:26] LABS: Anion Gap 4 (5-15); BUN 26 mg/dL (7-18); BUN/Creat Ratio 30.3 RATIO (10-20); Calcium,Total 9.7 mg/dL (8.5-10.1); Chloride 100 mmol/L (98-107); Creatinine, Serum 0.86 mg/dL (0.70-1.30); EST Glomerular Filtration Rate 92 mL/min (>60); Est Glom Filt Rate - Afr Amer 111 mL/min (>60); Estimated Creatinine Clearance 63.98 ml/min; Glucose 96 mg/dL (74-106); Sodium Level 136 mmol/L (136-145); Troponin-I HS 10.6 pg/mL (3.0-78.5)
[2021-01-09 09:10] LABS: Bacteria 0 SEEN /hpf (None Seen); Mucous, Urine 0 SEEN /hpf (<or=2+); Red Blood Cells-Urine 0 SEEN /hpf (0-5)
[2021-01-09 09:12] LABS: Color, Urine Yellow (Yellow); Glucose, Dipstick Normal (Normal); Ketone-Dipstick 15 mg/dl (Negative); Leukocyte Esterase-Dipstick 25 /ul (Negative); Nitrite-Dipstick Negative (Negative); Occult Blood-Urine Negative /ul (Negative); Protein-Dipstick 30 mg/dl (Negative); Urine Bilirubin Dipstick Negative (Negative); Urine Clarity Clear (Clear); Urine Urobilinogen Normal (Normal)
[2021-01-09 09:14] VITALS: BP 133/73; PULSE 89; RESP 21; TEMP 36.6; O2SAT 97
[2021-01-09 09:20] LABS: Squamous Epithelial Cells - UA 0-5 SEEN /hpf (0-5); White Blood Cells 0-5 SEEN /hpf (0-5)
[2021-01-09 09:57] VITALS: BP 130/76; PULSE 80; RESP 18; O2SAT 96
== END 2021-01-09 09:58 | disposition home or self-care (01) ==
PROVIDERS: Emergency Provider Emergency Medicine; PCP Family Medicine Geriatric Medicine
DX: Z04.3 Encounter for examination and observation following other accident (principal); G20 Parkinson's disease; I10 Essential (primary) hypertension; Z79.899 Other long term (current) drug therapy; Z86.73 Personal history of transient ischemic attack (TIA), and cerebral infarction without residual deficits; Z87.891 Personal history of nicotine dependence
CPT/HCPCS: 70450; 72125; 80048; 81001; 82962; 84484; 85025; 93005; 99285; P9612